=== PATIENT | male | born 1965 | race Caucasian/White ===

== ENCOUNTER 2023-12-17 14:39 | Inpatient (IN) | payer SELFPAY ==
[2023-12-17] VITALS (14 sets, daily range): BP systolic 105–148; BP diastolic 73–101; PULSE 75–100; RESP 14–24; TEMP 35.6–36.5; O2SAT 74–98; BMI 55.6; BMI 54.6
--- NOTE | 2023-12-17 15:04 | EKG12_ITS ---
Test Reason : SOB Blood Pressure : / mmHG Vent. Rate : 092 BPM Atrial Rate : 092 BPM P-R Int : 154 ms QRS Dur : 078 ms QT Int : 354 ms P-R-T Axes : 072 105 054 degrees QTc Int : 437 ms Normal sinus rhythm Right atrial enlargement Right ventricular hypertrophy Abnormal ECG Confirmed by Martin Louis ([id number]), editor managing newspaper JOCELYNE DAVIS ([id number]) on 12/19/2023 8:19:01 AM Referred By: Confirmed By:Martin Louis
--- NOTE | 2023-12-17 15:07 | NURSING ---
NO OLD EKGS
--- NOTE | 2023-12-17 15:25 | NURSING ---
PER LAB, NEEDS A NEW PURPLE TOP
[2023-12-17 15:30] LABS: Allen Test Positive; Base Excess 10 mmol/L (-2 to +2); Bicarbonate 36.6 mmol/L (22-26); Blood Gas Specimen Type ART; Mode Not entered; O2 Delivery Device Cannula; PO2 109 mmHG (75-100); SITE R Radial; SO2 97 % (95-99); Time Given 15:26:55; Total Carbon Dioxide 39 mmol/L; pCO2 81.4 mmHg (35-45); pH 7.26 (7.35-7.45)
--- NOTE | 2023-12-17 15:39 | EDS_ITS ---
HPI <URIAH Lazar - Last Filed: 12/17/23 20:36> History of Present Illness Chief Complaint: Fatigue Narrative Narrative: Patient presenting today due to fatigue and hypoxia. He is here with his who reports that she checked his pulse ox yesterday and noticed that it was in the 70s, however she did not think much of that because she does not know what is normal. She noticed yesterday that he seemed to be fatigued and slightly confused. She checked his pulse ox again today and it was in the 50s, prompting her to bring him in. Patient reports that he has noticed being slightly short of breath with exertion for a long time but did not think much of it. He reports that he does not feel short of breath at rest. He denies any fevers, chills, chest pain, cough, history of blood clots, recent surgery/procedures/travel/immobilization. He does have a history of MONIKA, hypertension, and hyperlipidemia but is not compliant with his CPAP or medication. PFSH <URIAH Lazar - Last Filed: 12/17/23 20:36> PFSH Medical History (Updated 12/17/23 @ 19:[address] Blessing Henley MD) Acute hypoxemic respiratory failure HLD (hyperlipidemia) HTN (hypertension) Morbid obesity MONIKA (obstructive sleep apnea) Home Medications losartan 100 mg-hydrochlorothiazide 25 mg tablet 1 tab PO DAILY 12/17/23 [History Last Taken Unknown] rosuvastatin 10 mg tablet (Crestor) 10 mg PO DAILY 12/17/23 [History Last Taken Unknown] Allergy/AdvReac Type Severity Reaction Status Date / Time Penicillins Allergy PT UNSURE Verified 12/17/23 14:41 OF REACTION Family History (Updated 12/17/23 @ 19:[address] Blessing Henley MD) Mother CVA (cerebral vascular accident) Hypertension Father Heart disease Hypertension Cancer Surgical History (Updated 12/17/23 @ 19:[address] Blessing Henley MD) History of vein stripping Social History (Updated 12/17/23 @ 19:[address] Blessing Henley MD) household members: spouse Smoking Status: Never smoker alcohol intake: current alcohol intake frequency: holidays/special occasions only substance use type: does not use ROS <URIAH Lazar - Last Filed: 12/17/23 20:36> ROS ED Constitutional Constitutional ED: Denies chills or fever(s) Cardiovascular Cardiovascular: Denies chest pain Respiratory/Chest Respiratory/Chest: Reports dyspnea on exertion; Denies cough, tachypnea or whee zing Gastrointestinal Gastrointestinal: Denies abdominal pain, nausea or vomiting Musculoskeletal Musculoskeletal: Denies arthralgias or myalgias Integumentary Denies rash Neurologic Neurologic: Denies weakness EXAM <URIAH Lazar - Last Filed: 12/17/23 20:36> Physical Exam Const Vital Signs: 12/17/23 14:41 12/17/23 15:09 12/17/23 15:12 Temperature 96.4 F L Temperature Source Temporal Pulse Rate 100 93 Respiratory Rate 20 H 24 H Respiratory Effort Short of Breath Respiratory Pattern Tachypnea Blood Pressure 136/91 H 113/101 H Blood Pressure Mean 106 105 Pulse Ox 74 97 Oxygen Delivery Method Room Air Nasal Cannula Oxygen Flow Rate (L/min) 4 Fraction of Inspired Oxygen (FIO2) 12/17/23 15:54 12/17/23 16:10 12/17/23 16:31 Temperature 96.6 F L Temperature Source Temporal Pulse Rate 89 86 96 Respiratory Rate 20 H 24 H 18 Respiratory Effort Respiratory Pattern Normal Blood Pressure 105/73 133/92 H Blood Pressure Mean 83 105 Pulse Ox 94 96 97 Oxygen Delivery Method Bi-pap Nasal Cannula Oxygen Flow Rate (L/min) 4 Fraction of Inspired Oxygen (FIO2) 30 12/17/23 18:16 12/17/23 18:15 12/17/23 18:51 Temperature Temperature Source Pulse Rate 78 77 78 Respiratory Rate 18 20 H 16 Respiratory Effort Respiratory Pattern Normal Blood Pressure 134/96 H 127/82 H Blood Pressure Mean 108 97 Pulse Ox 98 95 94 Oxygen Delivery Method Bi-pap Bi-pap Oxygen Flow Rate (L/min) Fraction of Inspired Oxygen (FIO2) 30 12/17/23 19:19 Temperature 97.7 F L Temperature Source Pulse Rate 79 Respiratory Rate 15 Respiratory Effort Respiratory Pattern Blood Pressure 148/95 H Blood Pressure Mean 112 Pulse Ox 95 Oxygen Delivery Method Oxygen Flow Rate (L/min) Fraction of Inspired Oxygen (FIO2) Positive well nourished, well developed and no apparent distress General Appearance ED: well developed HEENT Reports normocephalic and head/scalp atraumatic Mouth ED: Yes moist mucous membranes normal Eyes PERRL and EOMs intact bilaterally Neck full ROM and supple Chest Wall inspection of chest normal Resp clear to auscultation bilaterally Resp Narrative: Tachypneic Cardio regular rate and regular rhythm GI soft to palpation, non-tender, non-distended and no masses Back/Spine normal ROM and normal to inspection Extremity full ROM General Extremety ED: Yes edema; Negative for tenderness General Extremity: edema Neuro oriented x3, CN's II-XII intact bilaterally, moves all extremities, no focal motor deficits and no sensory deficits noted Sensorium / Orientation: awake and alert Psych mental status grossly normal and thought process normal Skin no rashes or lesions noted and no wounds <Dr. Casey Miller, DO - Last Filed: 12/17/23 19:39> Physical Exam Const Vital Signs: 12/17/23 14:41 12/17/23 15:09 12/17/23 15:12 Temperature 96.4 F L Temperature Source Temporal Pulse Rate 100 93 Respiratory Rate 20 H 24 H Respiratory Effort Short of Breath Respiratory Pattern Tachypnea Blood Pressure 136/91 H 113/101 H Blood Pressure Mean 106 105 Pulse Ox 74 97 Oxygen Delivery Method Room Air Nasal Cannula Oxygen Flow Rate (L/min) 4 Fraction of Inspired Oxygen (FIO2) 12/17/23 15:54 12/17/23 16:10 12/17/23 16:31 Temperature 96.6 F L Temperature Source Temporal Pulse Rate 89 86 96 Respiratory Rate 20 H 24 H 18 Respiratory Effort Respiratory Pattern Normal Blood Pressure 105/73 133/92 H Blood Pressure Mean 83 105 Pulse Ox 94 96 97 Oxygen Delivery Method Bi-pap Nasal Cannula Oxygen Flow Rate (L/min) 4 Fraction of Inspired Oxygen (FIO2) 30 12/17/23 18:16 12/17/23 18:15 12/17/23 18:51 Temperature Temperature Source Pulse Rate 78 77 78 Respiratory Rate 18 20 H 16 Respiratory Effort Respiratory Pattern Normal Blood Pressure 134/96 H 127/82 H Blood Pressure Mean 108 97 Pulse Ox 98 95 94 Oxygen Delivery Method Bi-pap Bi-pap Oxygen Flow Rate (L/min) Fraction of Inspired Oxygen (FIO2) 30 12/17/23 19:19 Temperature 97.7 F L Temperature Source Pulse Rate 79 Respiratory Rate 15 Respiratory Effort Respiratory Pattern Blood Pressure 148/95 H Blood Pressure Mean 112 Pulse Ox 95 Oxygen Delivery Method Oxygen Flow Rate (L/min) Fraction of Inspired Oxygen (FIO2) MDM <URIAH Lazar - Last Filed: 12/17/23 20:36> [facility] Narrative Medical decision making narrative: Patient presenting with hypoxia and fatigue. He really does not endorse feeling short of breath, he reports that he does notice that with exertion but that has been going on for a long time and he does not think much of it. On initial presentation he is 74% O2 on room air, he is tachypneic. He does seem slightly confused. Patient was placed on 4L supplemental O2. Labs will be obtained to include a ABG. Chest x-ray will be obtained to rule out pleural effusion, infiltrate, and other cardiopulmonary abnormality. ABG was obtained, patient is hypercapnic, he was placed on BiPAP. Chest x-ray shows pulmonary vascular congestion and possible infiltrates. CTA was obtained to rule out PE and shows trace pleural effusions, possible pneumonia. However, patient does not have a white count, we will hold off on antibiotics at this time. On exam, patient is fluid overloaded, he was given IV Lasix. There are concerns for diastolic heart failure. I do think he would benefit from admission to the hospital and will be admitted in stable condition. I have personally performed a face to face assessment of the patient and have reviewed the MAURA Note. I performed a substantive portion of the visit including all aspects of the following. My flores findings include: History is 58-year-old male with a history of sleep apnea and morbid obesity presented with lower extremity and scrotal/abdominal swelling. Noted to be hypoxic in the 50s in the 70s by his . He is noncompliant with his CPAP. Patient noted to have confusion over the past couple days. Exam is ANO x 3 but confused and is slow speaking. He has pitting edema of the lower extremities as well as edema of the anterior lower abdominal wall and sc rotal edema. Medical Decison Making patient has a mild respiratory acidosis with hypercarbia. He was given supplemental oxygen. No pulmonary embolism on CTA. I think changes in the bibasilar area are related more towards atelectasis than pneumonia. I suspect that he most likely has developed pulmonary hypertension due to CPAP noncompliance for sleep apnea. This most likely resulted in some di astolic heart failure. He relates some episodes of palpitations which may be due to atrial tacky dysrhythmia. He received IV Lasix and plan will be admission. We also placed him on BiPAP to help clear some of the bicarb. Hemoglobin is 18.7 probably due to chronic hypoxemia. BNP is slightly elevated. Troponin slightly elevated. Lab Data Attestation: I reviewed the patient's lab results. Labs: Laboratory Results - last 24 hr 12/17/23 12/17/23 12/17/23 15:00 15:00 15:20 WBC Cancelled Corrected WBC Cancelled RBC Cancelled Hgb Cancelled Hct Cancelled MCV Cancelled MCH Cancelled MCHC Cancelled RDW Std Deviation Cancelled RDW Coeff of Annmarie Cancelled Plt Count Cancelled MPV Cancelled Immature Gran % (Auto) Cancelled Neut % (Auto) Cancelled Lymph % (Auto) Cancelled [place] % (Auto) Cancelled Eos % (Auto) Cancelled Baso % (Auto) Cancelled Absolute Neuts (auto) Cancelled Absolute Lymphs (auto) Cancelled Total Counted Cancelled Neutrophils % (Manual) Cancelled Band Neutrophils % Cancelled Lymphocytes % (Manual) Cancelled Monocytes % (Manual) Cancelled Eosinophils % (Manual) Cancelled Basophils % (Manual) Cancelled Metamyelocytes % Cancelled Myelocytes % Cancelled Promyelocytes % Cancelled Blast Cells % Cancelled Plasma Cell % (Manual) Cancelled Other Cells % Cancelled Nucleated RBC % Cancelled Nucleated RBCs/100 WBC Cancelled Differential Comment Cancelled Diff Path Review Cancelled Hypersegmented Neuts Cancelled Atypical Lymphocytes Cancelled Reactive Lymphocytes Cancelled Smudge Cells Cancelled Toxic Granulation Cancelled Toxic Vacuolation Cancelled Dohle Bodies Cancelled Alva Rods Cancelled Platelet Estimate Cancelled Plt Morphology Comment Cancelled RBC Morphology Cancelled Cancelled Polychromasia Cancelled Hypochromasia Cancelled Basophilic Stippling Cancelled Anisocytosis Cancelled Microcytosis Cancelled Macrocytosis Cancelled Spherocytes Cancelled Sickle Cells Cancelled Target Cells Cancelled Tear Drop Cells Cancelled Ovalocytes Cancelled Stomatocytes Cancelled [place] Bodies Cancelled [place] Cells Cancelled Bite Cells Cancelled Crenated Cell Cancelled Acanthocytes (Spur) Cancelled Rouleaux Cancelled Schistocytes Cancelled PT 16.1 H INR 1.3 APTT 22.7 L Sodium 137 Potassium 5.2 H Chloride 99 Carbon Dioxide 32.0 Anion Gap 6 BUN 36 H Creatinine 1.38 H Estim Creat Clear Calc 86.96 Est GFR (MDRD) Af Amer 68 Est GFR (MDRD) Non-Af 56 L BUN/Creatinine Ratio 26.1 H Glucose 124 H Calcium 9.4 Magnesium Total Bilirubin 1.80 H Direct Bilirubin 0.54 H AST 26 ALT 27 Alkaline Phosphatase 77 Troponin I High Sens 97 H B-Natriuretic Peptide Total Protein 6.8 Albumin 3.1 L Globulin 3.7 12/17/23 12/17/23 15:33 17:30 WBC 9.2 Corrected WBC RBC 6.59 H Hgb 18.7 H* Hct 65.3 H MCV 99.1 H MCH 28.4 MCHC 28.6 L RDW Std Deviation 65.1 H RDW Coeff of Annmarie 19.5 H Plt Count 199 MPV 11.1 Immature Gran % (Auto) 0.700 Neut % (Auto) 69.3 Lymph % (Auto) 16.3 L [place] % (Auto) 12.2 H Eos % (Auto) 0.4 Baso % (Auto) 1.1 H Absolute Neuts (auto) 6.4 Absolute Lymphs (auto) 1.50 Total Counted Neutrophils % (Manual) Band Neutrophils % Lymphocytes % (Manual) Monocytes % (Manual) Eosinophils % (Manual) Basophils % (Manual) Metamyelocytes % Myelocytes % Promyelocytes % Blast Cells % Plasma Cell % (Manual) Other Cells % Nucleated RBC % 1.3 Nucleated RBCs/100 WBC Differential Comment SCANNED Diff Path Review May foll Hypersegmented Neuts Atypical Lymphocytes Reactive Lymphocytes Smudge Cells Toxic Granulation Toxic Vacuolation Dohle Bodies Alva Rods Platelet Estimate Plt Morphology Comment RBC Morphology Polychromasia RARE Hypochromasia Basophilic Stippling Anisocytosis Microcytosis Macrocytosis Spherocytes Sickle Cells Target Cells Tear Drop Cells Ovalocytes Stomatocytes [place] Bodies [place] Cells Bite Cells Crenated Cell Acanthocytes (Spur) Rouleaux Schistocytes PT INR APTT Sodium Potassium Chloride Carbon Dioxide Anion Gap BUN Creatinine Estim Creat Clear Calc Est GFR (MDRD) Af Amer Est GFR (MDRD) Non-Af BUN/Creatinine Ratio Glucose Calcium Magnesium 2.7 H Total Bilirubin Direct Bilirubin AST ALT Alkaline Phosphatase Troponin I High Sens 111 H B-Natriuretic Peptide 283.4 H Total Protein Albumin Globulin ABG Data ABG results: ABG 12/17/23 15:24 Specimen Type ART Sample Site R Radial pH 7.26 L Bicarbonate Actual 36.6 H Total CO2 39 Base Excess 10 H O2 Saturation 97 O2 % 4.0 ABG pCO2 81.4 H* ABG pO2 109 H Nick Test Positive O2 Delivery Device Cannula Vent Mode Not entered Crit Call To/Read Back Yes Blood Gas Notified Whom dr steel Blood Gas Notified Time 15:26:55 Radiography X-Ray: Read by ED Physician Diagnostic Testing: Clinical Impression(s) from Imaging Studies Chest X-Ray 12/17/23 15:43 IMPRESSION: Cardiomegaly. Bilateral hazy opacities within the mid and lower lungs may reflect edema and/or an infectious process. Pulmonary venous congestion. Electronically Signed: Shannon Foley MD at 15:59 EDT , Chest CTA 12/17/23 15:59 IMPRESSION: Normal CTA chest examination, without a demonstrated pulmonary embolism or arterial dissection. Small bibasilar consolidations with trace pleural effusions. Findings consistent with pneumonia. Electronically Signed: Nik Sol MD at 18:35 EDT , EKG Initial EKG: Comments: 92 bpm, normal sinus rhythm, right atrial enlargement, right ventricular hypertrophy, no ST elevation, reviewed and interpreted by attending ED physician <Dr. Casey Miller, DO - Last Filed: 12/17/23 19:39> [facility] MDM Narrative Medical decision making narrative: Patient presenting with hypoxia and fatigue. He really does not endorse feeling short of breath, he reports that he does notice that with exertion but that has been going on for a long time and he does not think much of it. On initial presentation he is 74% O2 on room air, he is tachypneic. Patient was placed on 4L supplemental O2. Labs will be obtained to include a ABG. Chest x-ray will be obtained to rule out pleural effusion, infiltrate, and other cardiopulmonary abnormality. ABG was obtained, patient is hypercapnic, he was placed on BiPAP. Chest x-ray shows pulmonary vascular congestion and possible infiltrates. CTA was obtained to rule out PE and shows trace pleural effusions, possible pneumonia. However, patient does not have a white count, we will hold off on antibiotics at this time. On exam, patient is fluid overloaded, he was given IV Lasix. There are concerns for diastolic heart failure. I do think he would benefit from admission to the hospital. I have personally performed a face to face assessment of the patient and have reviewed the MAURA Note. I performed a substantive portion of the visit including all aspects of the following. My flores findings include: History is 58-year-old male with a history of sleep apnea and morbid obesity pre sented with lower extremity and scrotal/abdominal swelling. Noted to be hypoxic in the 50s in the 70s by his . He is noncompliant with his CPAP. Patient noted to have confusion over the past couple days. Exam is ANO x 3 but confused and is slow speaking. He has pitting edema of the lower extremities as well as edema of the anterior lower abdominal wall and scrotal edema. Medical Decison Making patient has a mild respiratory acidosis with hypercarbia. He was given supplemental oxygen. No pulmonary embolism on CTA. I think changes in the bibasilar area are related more towards atelectasis than pneumonia. I suspect that he most likely has developed pulmonary hypertension due to CPAP noncompliance for sleep apnea. This most likely resulted in some diastolic heart failure. He relates some episodes of palpitations which may be due to atrial tacky dysrhythmia. He received IV Lasix and plan will be admission. We also placed him on BiPAP to help clear some of the bicarb. Hemoglobin is 18.7 probably due to chronic hypoxemia. BNP is slightly elevated. Troponin slightly elevated. History & Record Review Discussion w/independent historian: Patient and Family Lab Data Labs: Laboratory Results - last 24 hr 12/17/23 12/17/23 12/17/23 15:00 15:00 15:20 WBC Cancelled Corrected WBC Cancelled RBC Cancelled Hgb Cancelled Hct Cancelled MCV Cancelled MCH Cancelled MCHC Cancelled RDW Std Deviation Cancelled RDW Coeff of Annmarie Cancelled Plt Count Cancelled MPV Cancelled Immature Gran % (Auto) Cancelled Neut % (Auto) Cancelled Lymph % (Auto) Cancelled [place] % (Auto) Cancelled Eos % (Auto) Cancelled Baso % (Auto) Cancelled Absolute Neuts (auto) Cancelled Absolute Lymphs (auto) Cancelled Total Counted Cancelled Neutrophils % (Manual) Cancelled Band Neutrophils % Cancelled Lymphocytes % (Manual) Cancelled Monocytes % (Manual) Cancelled Eosinophils % (Manual) Cancelled Basophils % (Manual) Cancelled Metamyelocytes % Cancelled Myelocytes % Cancelled Promyelocytes % Cancelled Blast Cells % Cancelled Plasma Cell % (Manual) Cancelled Other Cells % Cancelled Nucleated RBC % Cancelled Nucleated RBCs/100 WBC Cancelled Differential Comment Cancelled Diff Path Review Cancelled Hypersegmented Neuts Cancelled Atypical Lymphocytes Cancelled Reactive Lymphocytes Cancelled Smudge Cells Cancelled Toxic Granulation Cancelled Toxic Vacuolation Cancelled Dohle Bodies Cancelled Alva Rods Cancelled Platelet Estimate Cancelled Plt Morphology Comment Cancelled RBC Morphology Cancelled Cancelled Polychromasia Cancelled Hypochromasia Cancelled Basophilic Stippling Cancelled Anisocytosis Cancelled Microcytosis Cancelled Macrocytosis Cancelled Spherocytes Cancelled Sickle Cells Cancelled Target Cells Cancelled Tear Drop Cells Cancelled Ovalocytes Cancelled Stomatocytes Cancelled [place] Bodies Cancelled [place] Cells Cancelled Bite Cells Cancelled Crenated Cell Cancelled Acanthocytes (Spur) Cancelled Rouleaux Cancelled Schistocytes Cancelled PT 16.1 H INR 1.3 APTT 22.7 L Sodium 137 Potassium 5.2 H Chloride 99 Carbon Dioxide 32.0 Anion Gap 6 BUN 36 H Creatinine 1.38 H Estim Creat Clear Calc 86.96 Est GFR (MDRD) Af Amer 68 Est GFR (MDRD) Non-Af 56 L BUN/Creatinine Ratio 26.1 H Glucose 124 H Calcium 9.4 Magnesium Total Bilirubin 1.80 H Direct Bilirubin 0.54 H AST 26 ALT 27 Alkaline Phosphatase 77 Troponin I High Sens 97 H B-Natriuretic Peptide Total Protein 6.8 Albumin 3.1 L Globulin 3.7 12/17/23 12/17/23 15:33 17:30 WBC 9.2 Corrected WBC RBC 6.59 H Hgb 18.7 H* Hct 65.3 H MCV 99.1 H MCH 28.4 MCHC 28.6 L RDW Std Deviation 65.1 H RDW Coeff of Annmarie 19.5 H Plt Count 199 MPV 11.1 Immature Gran % (Auto) 0.700 Neut % (Auto) 69.3 Lymph % (Auto) 16.3 L [place] % (Auto) 12.2 H Eos % (Auto) 0.4 Baso % (Auto) 1.1 H Absolute Neuts (auto) 6.4 Absolute Lymphs (auto) 1.50 Total Counted Neutrophils % (Manual) Band Neutrophils % Lymphocytes % (Manual) Monocytes % (Manual) Eosinophils % (Manual) Basophils % (Manual) Metamyelocytes % Myelocytes % Promyelocytes % Blast Cells % Plasma Cell % (Manual) Other Cells % Nucleated RBC % 1.3 Nucleated RBCs/100 WBC Differential Comment SCANNED Diff Path Review May foll Hypersegmented Neuts Atypical Lymphocytes Reactive Lymphocytes Smudge Cells Toxic Granulation Toxic Vacuolation Dohle Bodies Alva Rods Platelet Estimate Plt Morphology Comment RBC Morphology Polychromasia RARE Hypochromasia Basophilic Stippling Anisocytosis Microcytosis Macrocytosis Spherocytes Sickle Cells Target Cells Tear Drop Cells Ovalocytes Stomatocytes [place] Bodies [place] Cells Bite Cells Crenated Cell Acanthocytes (Spur) Rouleaux Schistocytes PT INR APTT Sodium Potassium Chloride Carbon Dioxide Anion Gap BUN Creatinine Estim Creat Clear Calc Est GFR (MDRD) Af Amer Est GFR (MDRD) Non-Af BUN/Creatinine Ratio Glucose Calcium Magnesium 2.7 H Total Bilirubin Direct Bilirubin AST ALT Alkaline Phosphatase Troponin I High Sens 111 H B-Natriuretic Peptide 283.4 H Total Protein Albumin Globulin ABG Data ABG results: ABG 12/17/23 15:24 Specimen Type ART Sample Site R Radial pH 7.26 L Bicarbonate Actual 36.6 H Total CO2 39 Base Excess 10 H O2 Saturation 97 O2 % 4.0 ABG pCO2 81.4 H* ABG pO2 109 H Nick Test Positive O2 Delivery Device Cannula Vent Mode Not entered Crit Call To/Read Back Yes Blood Gas Notified Whom dr steel Blood Gas Notified Time 15:26:55 Radiography Diagnostic Testing: Clinical Impression(s) from Imaging Studies Chest X-Ray 12/17/23 15:43 IMPRESSION: Cardiomegaly. Bilateral hazy opacities within the mid and lower lungs may reflect edema and/or an infectious process. Pulmonary venous congestion. Electronically Signed: Shannon Foley MD at 15:59 EDT , Chest CTA 12/17/23 15:59 IMPRESSION: Normal CTA chest examination, without a demonstrated pulmonary embolism or arterial dissection. Small bibasilar consolidations with trace pleural effusions. Findings consistent with pneumonia. Electronically Signed: Nik Sol MD at 18:35 EDT Reading Location ID and State: [address] [place] [address] Tel , Service support , Management Discussion w/another healthcare provider: Hospitalist Discharge Plan Dx/Rx/DC Orders Clinical Impression: Diastolic CHF, Acute hypoxemic respiratory failure, Elevated troponin Disposition Disposition: Acute Care Hospital [facility] Discharge Date/Time: 12/17/23 20:15
[2023-12-17 15:43] LABS: Absolute Neutrophil Count 6.4 X10^3/uL (2.0-7.7); Basophil% 1.1 % (0-1); Eosinophil# 0.04 X10^3/uL; Eosinophils% 0.4 % (0-5); Lymphocyte % 16.3 % (19-41); Mean Corp Hgb Conc 28.6 g/dL (32-36); Mean Corpuscular Hgb 28.4 pg (27.0-32.0); Mean Corpuscular Volume 99.1 fL (80-94); Mean Platelet Vol. 11.1 fl (6.2-12.0); Monocyte# 1.12 X10^3/uL; Monocyte% 12.2 % (0-10); NRBC Flagged by Analyzer 1.3 % (0-5); Neutrophil # 6.36 X10^3/uL (2.7-7.7); Neutrophil % 69.3 % (47-70); POSITIVE MORPHOLOGY YES; Platelet Count 199 K/mm3 (150-450); RBC Distribution Width CV 19.5 % (11.6-14.6); RBC Distribution Width SD 65.1 fl (35.1-43.9); Red Blood Count 6.59 M/mm3 (4.6-6.2); White Blood Count 9.2 K/mm3 (4.4-11.0)
--- NOTE | 2023-12-17 15:43 | RAD_ITS ---
INDICATION: shortness of breath EXAMINATION/TECHNIQUE: X-RAY - XR Chest 2 Views COMPARISON: No relevant prior comparison study available FINDINGS: LINES/DEVICES: None. LUNGS: There are bilateral hazy opacities within the mid and lower lungs. No pneumothorax. MEDIASTINUM AND CARDIOVASCULAR STRUCTURES: There is cardiomegaly and perihilar fullness. BONES AND SOFT TISSUES: Unremarkable. RAD/Chest PA and Lateral IMPRESSION: Cardiomegaly. Bilateral hazy opacities within the mid and lower lungs may reflect edema and/or an infectious process. Pulmonary venous congestion. Electronically Signed: Shannon Foley MD at 15:59 EDT ,
[2023-12-17 15:48] LABS: Hematocrit 65.3 % (40-54)
[2023-12-17 15:49] LABS: Anion Gap 6 (5-15); BUN 36 mg/dL (7-18); BUN/Creat Ratio 26.1 RATIO (10-20); Calcium,Total 9.4 mg/dL (8.5-10.1); Chloride 99 mmol/L (98-107); Creatinine, Serum 1.38 mg/dL (0.70-1.30); EST Glomerular Filtration Rate 56 mL/min (>60); Est Glom Filt Rate - Afr Amer 68 mL/min (>60); Estimated Creatinine Clearance 86.96 ml/min; Glucose 124 mg/dL (74-106); Potassium 5.2 mmol/L (3.5-5.1); Sodium Level 137 mmol/L (136-145); Troponin-I HS (w/2H Reflex) 97 pg/mL (3.0-78.0)
[2023-12-17 15:50] LABS: Differential Indicated SCAN CRITERIA MET; Hemoglobin 18.7 g/dL (13.0-16.5)
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
--- NOTE | 2023-12-17 15:59 | CT_ITS ---
STUDY: CTA CHEST REASON FOR EXAM: Male, 58 years old. Shortness of breath RADIATION DOSAGE (If Supplied By Facility): CTDIvol = ( 30.08 ) mGy, DLP = ( 789.72 ) mGycm TECHNIQUE: The examination was performed with the intravenous administration of 100mL Isovue-370. Post-processing of the angiographic images was performed, with multiplanar reformation and 3D reconstruction. Individualized dose optimization techniques were used for this CT. COMPARISON: None. FINDINGS: Normal enhancement of the main pulmonary artery and right and left pulmonary arteries. Normal enhancement of the bilateral peripheral pulmonary arteries. There is no demonstrated pulmonary embolism. Mild ectasia ascending thoracic aorta. There is no demonstrated aortic dissection. Normal heart and pericardium. Normal mediastinum. Normal hilar regions. Small bibasilar consolidations with trace pleural effusions. Normal chest wall structures. No acute or aggressive abnormality. Scattered ascites. Calcified gallstones. No acute findings in the upper abdomen. CT/CTA Chest W/WO Contrast IMPRESSION: Normal CTA chest examination, without a demonstrated pulmonary embolism or arterial dissection. Small bibasilar consolidations with trace pleural effusions. Findings consistent with pneumonia. Electronically Signed: Nik Sol MD at 18:35 EDT ,
[2023-12-17 16:16] LABS: AST(SGOT) 26 U/L (15-37); Alanine Aminotransfer ALT/SGPT 27 U/L (16-61); Albumin, Serum 3.1 g/dL (3.2-5.0); Alkaline Phosphatase 77 U/L (45-117); Bilirubin, Direct 0.54 mg/dL (0.00-0.30); Globulin 3.7 g/dL (2.2-4.2); Protein, Total 6.8 g/dL (6.4-8.2)
[2023-12-17 16:20] LABS: BNP,B-Type NATRIURETIC PEPTIDE 283.4 pg/mL (0-100); Differential Comment SCANNED
[2023-12-17 16:21] LABS: Polychromasia RARE
[2023-12-17 16:38] LABS: International Normalized Ratio 1.3; Partial Thromboplast Time 22.7 Seconds (24.1-36.2); Prothrombin Time (Protime)PT. 16.1 SECONDS (11.7-14.9)
--- NOTE | 2023-12-17 16:50 | CPS ---
stand by and placed on 4L NC to go to radiology
[2023-12-17 17:12] LABS: Reflex Troponin-HS? (from REC) Y
[2023-12-17 17:58] LABS: Troponin-I HS 111 pg/mL (3.0-78.0)
[2023-12-17] MEDS: Aspirin 325 MG Tablet PO (18:32)
--- NOTE | 2023-12-17 19:23 | PCM.HP.STD ---
HPI - General General Date of Admission: 12/17/23 Date of Service: 12/17/23 Chief Complaint: Fatigue, malaise, dyspnea, hypoxia. HPI Narrative The patient is a 58 y/o M w/ PMHx: Reactive airway disease, HTN, HLD, Morbid Obesity, MONIKA noncompliant with CPAP, possible CKD stage III unclear subtype who presents to the [facility] ED on 12/17/23 with history of increasing fatigue, malaise, hypoxia with pulse oximeter in the 70s with increased confusion with hypoxemia worsening to the 50s over the last 24 hours with dyspnea, worse with exertion and improves with rest with no associated chest discomfort prompting eventual ED evaluation. In the ED he is very lethargic but does arouse however is not oriented. Significant reports that he has had no significant weight gain or lower extremity swelling but does have chronic edema in his legs. Workup in the ED included 96.4, heart rate 100, BP 136/91, respiratory rate 20, initially 94% room air with improvement to 97% on 4 L however eventually required transition to BiPAP, most recent vital signs include heart rate 78, BP 137/82, respiratory rate 16, 94% on 30% FiO2 BiPAP, CBC with WBC 9.2, hemoglobin 18.7, MCV 99.1, platelet 199 without marked shift, coags with PT 16.1, INR 1.3, PTT 22.7, ABG with pH 7.26, bicarb 36.6, pCO2 81.4, pO2 109, CMP with potassium 5.2, BUN/creatinine 36/1.38, glucose 124, T. bili 1.80, D bili 0.54, AST/LT 26/27, alk phos 77, troponin initial 97 with repeat delta 111, troponin 283.4, chest x-ray with cardiomegaly, pulmonary venous congestion, bilateral hazy opacity within the mid and lower lungs likely edema versus pneumonia, follow-up CTPA with no PE or dissection, small bibasilar consolidations with trace pleural effusions consistent with pneumonia, EKG with sinus rhythm with no acute evidence of ischemia. In the ED patient ministered aspirin 325 mg p.o. x 1 as well as Lasix 60 mg IV x 1. [facility] Medical History (Updated 12/17/23 @ 19:[address] Blessing Henley MD) Acute hypoxemic respiratory failure HLD (hyperlipidemia) HTN (hypertension) Morbid obesity MONIKA (obstructive sleep apnea) Home Medications losartan 100 mg-hydrochlorothiazide 25 mg tablet 1 tab PO DAILY 12/17/23 [History Last Taken Unknown] rosuvastatin 10 mg tablet (Crestor) 10 mg PO DAILY 12/17/23 [History Last Taken Unknown] Allergy/AdvReac Type Severity Reaction Status Date / Time Penicillins Allergy PT UNSURE Verified 12/17/23 14:41 OF REACTION Family History (Updated 12/17/23 @ 19:[address] Blessing Henley MD) Mother CVA (cerebral vascular accident) Hypertension Father Heart disease Hypertension Cancer Surgical History (Updated 12/17/23 @ 19:[address] Blessing Henley MD) History of vein stripping Social History (Updated 12/17/23 @ 19:[address] Blessing Henley MD) household members: spouse Smoking Status: Never smoker alcohol intake: current alcohol intake frequency: holidays/special occasions only substance use type: does not use ROS Review of Systems ROS Unobtainable: due to encephalopathy Vital Signs Vital Signs Vital Signs: 12/17/23 14:41 12/17/23 15:09 12/17/23 15:12 Temperature 96.4 F L Temperature Source Temporal Pulse Rate 100 93 Respiratory Rate 20 H 24 H Respiratory Effort Short of Breath Respiratory Pattern Tachypnea Blood Pressure 136/91 H 113/101 H Blood Pressure Mean 106 105 Pulse Ox 74 97 Oxygen Delivery Method Room Air Nasal Cannula Oxygen Flow Rate (L/min) 4 Fraction of Inspired Oxygen (FIO2) 12/17/23 15:54 12/17/23 16:10 12/17/23 16:31 Temperature 96.6 F L Temperature Source Temporal Pulse Rate 89 86 96 Respiratory Rate 20 H 24 H 18 Respiratory Effort Respiratory Pattern Normal Blood Pressure 105/73 133/92 H Blood Pressure Mean 83 105 Pulse Ox 94 96 97 Oxygen Delivery Method Bi-pap Nasal Cannula Oxygen Flow Rate (L/min) 4 Fraction of Inspired Oxygen (FIO2) 30 12/17/23 18:16 12/17/23 18:15 12/17/23 18:51 Temperature Temperature Source Pulse Rate 78 77 78 Respiratory Rate 18 20 H 16 Respiratory Effort Respiratory Pattern Normal Blood Pressure 134/96 H 127/82 H Blood Pressure Mean 108 97 Pulse Ox 98 95 94 Oxygen Delivery Method Bi-pap Bi-pap Oxygen Flow Rate (L/min) Fraction of Inspired Oxygen (FIO2) 30 12/17/23 19:19 Temperature 97.7 F L Temperature Source Pulse Rate 79 Respiratory Rate 15 Respiratory Effort Respiratory Pattern Blood Pressure 148/95 H Blood Pressure Mean 112 Pulse Ox 95 Oxygen Delivery Method Oxygen Flow Rate (L/min) Fraction of Inspired Oxygen (FIO2) Weight Weight: 355 lb 2.635 oz Body Mass Index (BMI) 55.6 Physical Exam Narrative Physical Examination: General: Awakens to stimuli but is very lethargic, on BiPAP which is recently just placed back on secondary to imaging studies, not alert nor oriented, notably encephalopathic, seated upright in the ED bed however and vital signs stable. Skin: Normal color, normal turgor, no icterus, no cyanosis except noted intertrigo in folds as well as bilateral lower extremity chronic venous stasis skin changes. HEENT: AT/NC, EOMI, PERRLA, mildly dry MM, BiPAP in place, notable facial hair, difficult to discern carotid bruit or JVD given facial hair and BiPAP in place with referred sounds. Lungs: Significantly diminished, greater bases, BiPAP in place, currently lethargic with mildly increased respiratory rate but no evidence of distress, mild rales at bases, no rhonchi or wheezing. Heart: Regular rate and rhythm; no gallop, rub audible. Abdomen: Soft, morbidly obese, NTTP, distant normal BS, unable to discern distention or HSM well secondary to habitus. Extremities: No cyanosis, no clubbing, significant chronic bilateral lower extremity lymphedema. Neurological: Awakens to stimuli but is very lethargic, on BiPAP which is recently just placed back on secondary to imaging studies, not alert nor oriented, notably encephalopathic, seated upright in the ED bed however and vital signs stable, cognitive function not baseline intact; pupils equally reactive to light and accommodation, cranial nerves difficult to assess given encephalopathy, spontaneously moving extremities, strength severely globally decreased. Psychiatric: Affect appears flat, lethargic, no acute evidence of depressive or anxiety feelings. Results Lab / Micro Data 12/17/23 15:33 12/17/23 15:00 Labs: Laboratory Results - last 24 hr 12/17/23 15:00: WBC Cancelled, Corrected WBC Cancelled, RBC Cancelled, Hgb Cancelled, Hct Cancelled, MCV Cancelled, MCH Cancelled, MCHC Cancelled, RDW Std Deviation Cancelled, RDW Coeff of Annmarie Cancelled, Plt Count Cancelled, MPV Cancelled, Immature Gran % (Auto) Cancelled, Neut % (Auto) Cancelled, Lymph % (Auto) Cancelled, [place] % (Auto) Cancelled, Eos % (Auto) Cancelled, Baso % (Auto) Cancelled, Absolute Neuts (auto) Cancelled, Absolute Lymphs (auto) Cancelled, Total Counted Cancelled, Neutrophils % (Manual) Cancelled, Band Neutrophils % Cancelled, Lymphocytes % (Manual) Cancelled, Monocytes % (Manual) Cancelled, Eosinophils % (Manual) Cancelled, Basophils % (Manual) Cancelled, Metamyelocytes % Cancelled, Myelocytes % Cancelled, Promyelocytes % Cancelled, Blast Cells % Cancelled, Plasma Cell % (Manual) Cancelled, Other Cells % Cancelled, Nucleated RBC % Cancelled, Nucleated RBCs/100 WBC Cancelled, Differential Comment Cancelled, Diff Path Review Cancelled, Hypersegmented Neuts Cancelled, Atypical Lymphocytes Cancelled, Reactive Lymphocytes Cancelled, Smudge Cells Cancelled, Toxic Granulation Cancelled, Toxic Vacuolation Cancelled, Dohle Bodies Cancelled, Alva Rods Cancelled, Platelet Estimate Cancelled, Plt Morphology Comment Cancelled, RBC Morphology Cancelled 12/17/23 15:00: RBC Morphology Cancelled, Polychromasia Cancelled, Hypochromasia Cancelled, Basophilic Stippling Cancelled, Anisocytosis Cancelled, Microcytosis Cancelled, Macrocytosis Cancelled, Spherocytes Cancelled, Sickle Cells Cancelled, Target Cells Cancelled, Tear Drop Cells Cancelled, Ovalocytes Cancelled, Stomatocytes Cancelled, [place] Bodies Cancelled, [place] Cells Cancelled, Bite Cells Cancelled, Crenated Cell Cancelled, Acanthocytes (Spur) Cancelled, Rouleaux Cancelled, Schistocytes Cancelled, Sodium 137, Potassium 5.2 H, Chloride 99, Carbon Dioxide 32.0, Anion Gap 6, BUN 36 H, Creatinine 1.38 H, Estim Creat Clear Calc 86.96, Est GFR (MDRD) Af Amer 68, Est GFR (MDRD) Non-Af 56 L, BUN/Creatinine Ratio 26.1 H, Glucose 124 H, Calcium 9.4, Total Bilirubin 1.80 H, Direct Bilirubin 0.54 H, AST 26, ALT 27, Alkaline Phosphatase 77, Troponin I High Sens 97 H, Total Protein 6.8, Albumin 3.1 L, Globulin 3.7 12/17/23 15:20: PT 16.1 H, INR 1.3, APTT 22.7 L 12/17/23 15:33: WBC 9.2, RBC 6.59 H, Hgb 18.7 H*, Hct 65.3 H, MCV 99.1 H, MCH 28.4, MCHC 28.6 L, RDW Std Deviation 65.1 H, RDW Coeff of Annmarie 19.5 H, Plt Count 199, MPV 11.1, Immature Gran % (Auto) 0.700, Neut % (Auto) 69.3, Lymph % (Auto) 16.3 L, [place] % (Auto) 12.2 H, Eos % (Auto) 0.4, Baso % (Auto) 1.1 H, Absolute Neuts (auto) 6.4, Absolute Lymphs (auto) 1.50, Nucleated RBC % 1.3, Differential Comment SCANNED, Diff Path Review May foll, Polychromasia RARE, B-Natriuretic Peptide 283.4 H 12/17/23 17:30: Troponin I High Sens 111 H ABG Data ABG results: ABG 12/17/23 15:24 Specimen Type ART Sample Site R Radial pH 7.26 L Bicarbonate Actual 36.6 H Total CO2 39 Base Excess 10 H O2 Saturation 97 O2 % 4.0 ABG pCO2 81.4 H* ABG pO2 109 H Nick Test Positive O2 Delivery Device Cannula Vent Mode Not entered Crit Call To/Read Back Yes Blood Gas Notified Whom dr steel Blood Gas Notified Time 15:26:55 Imaging Radiology Impression Chest X-Ray 12/17/23 15:43 IMPRESSION: Cardiomegaly. Bilateral hazy opacities within the mid and lower lungs may reflect edema and/or an infectious process. Pulmonary venous congestion. Electronically Signed: Shannon Foley MD at 15:59 EDT , Chest CTA 12/17/23 15:59 IMPRESSION: Normal CTA chest examination, without a demonstrated pulmonary embolism or arterial dissection. Small bibasilar consolidations with trace pleural effusions. Findings consistent with pneumonia. Electronically Signed: Nik Sol MD at 18:35 EDT , Assessment & Plan Assessment/Plan (1) Acute hypoxic on chronic hypercapnic respiratory failure: PLAN: Plan The patient is a 58 y/o M w/ PMHx: Reactive airway disease, HTN, HLD, Morbid Obesity, MONIKA noncompliant with CPAP, possible CKD stage III unclear subtype who presents to the [facility] ED on 12/17/23 with history of increasing fatigue, malaise, hypoxia with pulse oximeter in the 70s with increased confusion with hypoxemia worsening to the 50s over the last 24 hours with dyspnea, worse with exertion and improves with rest with no associated chest discomfort prompting eventual ED evaluation. #1. Acute Encephalopathy secondary to Acute Hypoxic and Hypercarbic Respiratory Failure secondary to Suspected Decompensated HF, unclear type and Possible concurrent BL CAP with resulting likely #2 complicated by Underlying Reactive Airway Disease: Patient administered IV lasix in the ED, will admit to PCU, will continue BIPAP placement with wean to NC and then RA as able, will maintain on cardiac telemetry, obtain cardiac enzyme series, obtain serial EKGs, continue IV lasix diuresis, monitor I/Os, maintain on intake restriction, continue medical therapy w/ asa, statin, add BB, obtain TSH and magnesium level. Obtain ECHO. To be cautious we will also obtain procalcitonin, full respiratory viral panel, urine antigens and sputum culture but in the interim will maintain on IV Rocephin and azithromycin with de-escalation if primarily consistent only with overload presentation, plan repeat chest x-ray in a.m. following diuresis as well to be certain. PRN albuterol, ATC budeonside. Pending response and further evaluaiton may consider Cardiology consultation. Snug JULIET wraps. PT/OT/CM consultations for discharge planning. #2. Indeterminate cardiac enzyme, suspect demand given presentation with hypoxia as noted: EKG in ED [], CXR w/ evidence of bilateral hazy opacities as well as CTPA follow-up with bibasilar consolidation with trace pleural effusions concerning for possible overload and pneumonia, initial trop 97 with repeat delta 111. Will place on a monitored bed to assure no acute myocardial infarction with serial cardiac enzymes and EKGs. Magnesium level requested. Echocardiogram requested. Will maintain on aspirin therapy. FLP in AM. #3. Hyperkalemia, mild: Admission potassium 5.2, given planned continue diuresis will continue to trend as would expect appropriate decrease, repeat CBC in AM. #4. Suspected CKD stage III, unclear subtype but uncertain given no trends available: Admission BUN/Cr 36/1.38, baseline renal function unknown but certainly could have underlying chronic disease, repeat CMP in AM to elucidate if this is acute, acute on chronic or chronic. #5. Hyperbilirubinemia, mild: Admission T. bili 1.80, T. bili 0.54, AST and ALT 26/27, alk phos 77, potentially chronic component but no comparison, will continue treatment as noted above and repeat CMP in AM. #6. Hypertension: Continue home regimen including losartan, IV Lasix as noted, add BB, PRN hydralazine. #7. Hyperlipidemia: Continue home statin regimen. AM FLP. #8. Morbid Obesity: Weight loss and lifestyle changes encouraged. #9. MONIKA: Noncompliant with CPAP, BiPAP currently as noted. #10. DVT prophylaxis: Lovenox. #11. CODE status: Patient HCPOA and LW are not in place but his spouse would be his decision maker if he was unable. Discussed CODE status at length including difference between FULL code, DNR-CCA and DNR-CC status. Following discussions about the differences in these status, requested Full Code status. Advanced Care Planning Face to Face Time: 16 minutes. Charges/Coding Visit Charges Inpatient E&M: 22127 Init Hosp L3 Procedures Hospitalists Procedures: 37405 Advncd Care Plan 30 Min
--- OUTSIDE RECORDS SUMMARY | 2023-12-17 19:42 | XMS RPT_ITS | CCD ---
Author Name Unknown Address [address] [facility] [address] [place] [address] Organization [facility] Care Team Providers Care Bridge Tender Name Role Phone Shelli Balderas Unavailable Unavailable [...] (2 sources) Penicillins; Translations: [Penicillins] Drug Allergy [facility] Work Phone: (9 sources) Penicillins; Translations: [Penicillins] drug allergy 3 Hives [facility] 3 Repository (2 sources) chicken allergenic extract; Translations: [POULTRY] Drug Allergy 3 Anaphylaxis, Angioedema, Unknown [facility] Work Phone: (2 sources) Fish; Translations: [FISH CONTAINING PRODUCTS] Drug Allergy 3 Anaphylaxis, Angioedema [facility] (1 source) Penicillins Drug Allergy 3 Hives, Other [facility] Work Phone: Medications Current Medications Medication Drug Class(es) Dates Sig (Normalized) Sig (Original) [id number] 200 actuat albuterol 0.09 mg/actuat metered dose [...] 170.2 cm Shelli Balderas MD Work Phone: [facility] 06-19-2023 10:45-0400 Body mass index (BMI) [Ratio] 52.31 kg/m2 Shelli Balderas MD Work Phone: [facility] 06-19-2023 10:45-0400 Body weight 151.5 kg Shelli Balderas MD Work Phone: [facility] 06-19-2023 10:45-0400 Diastolic blood pressure 99 mm[Hg] Shelli Balderas MD Work Phone: [facility] 06-19-2023 10:45-0400 Heart rate 83 /min Shelli Balderas MD Work Phone: [facility] 06-19-2023 10:45-0400 Systolic blood pressure 146 mm[Hg] Shelli Balderas MD Work Phone: [facility] 09-20-2022 11:08-0500 Body mass index (BMI) [Ratio] 53.15 kg/m2 Shelli Balderas Work Phone: [facility] Work Phone: 09-20-2022 11:08-0500 Body surface area Derived from formula 2.53 m2 Shelli Balderas Work Phone: [facility] Work Phone: 09-20-2022 11:08-0500 Body weight 153.94 kg Shelli Balderas Work Phone: [facility] Work Phone: 09-20-2022 11:08-0500 Diastolic blood pressure 77 mm[Hg] Shelli Baldreas Work Phone: [facility] Work Phone: 09-20-2022 11:08-0500 Systolic blood pressure 120 mm[Hg] Shelli Balderas Work Phone: [facility] Work Phone: 11-30-2021 11:13-0500 Body height 170.18 cm Shleli Balderas Work Phone: [facility] Work Phone: 11-30-2021 11:13-0500 Body mass index (BMI) [Ratio] 54.52 kg/m2 Shelli Balderas Work Phone: [facility] Work Phone: 11-30-2021 11:13-0500 Body surface area Derived from formula 2.56 m2 Shelli Balderas Work Phone: [facility] Work Phone: 11-30-2021 11:13-0500 Body weight 157.91 kg Shelli Balderas Work Phone: [facility] Work Phone: 11-30-2021 11:13-0500 Diastolic blood pressure 88 mm[Hg] Shelli Balderas Work Phone: [facility] Work Phone: 11-30-2021 11:13-0500 Heart rate 70 /min Shelli Balderas Work Phone: [facility] Work Phone: 11-30-2021 11:13-0500 Systolic blood pressure 131 mm[Hg] Shelli Balderas Work Phone: [facility] Work Phone: 04-08-2021 09:07-0400 Body mass index (BMI) [Ratio] 52.94 kg/m2 Shelli Balderas Work Phone: [facility] Work Phone: 04-08-2021 09:07-0400 Body surface area Derived from formula 2.53 m2 Shelli Balderas Work Phone: [facility] Work Phone: 04-08-2021 09:07-0400 Body weight 153.32 kg Shelli Balderas Work Phone: [facility] Work Phone: 04-08-2021 09:07-0400 Diastolic blood pressure 90 mm[Hg] Shelli Balderas Work Phone: [facility] Work Phone: 04-08-2021 09:07-0400 Systolic blood pressure 140 mm[Hg] Shelli Balderas Work Phone: [facility] Work Phone: 10-04-2019 12:41-0500 BMI (Body Mass Index) 44.48 kg/m2 Don Monreal [facility] Work Phone: 10-04-2019 12:41-0500 Body Temperature 98.8 [degF] Don Monreal [facility] Work Phone: 10-04-2019 12:41-0500 Body weight 128.82 kg Don Monreal [facility] Work Phone: 10-04-2019 12:41-0500 BP Diastolic 90 mm[Hg] Don Monreal [facility] Work Phone: 10-04-2019 12:41-0500 BP Systolic 142 mm[Hg] Don Monreal [facility] Work Phone: 10-04-2019 12:41-0500 BSA (Body Surface Area) 2.35 m2 Don Monreal [facility] Work Phone: 10-04-2019 12:41-0500 Height 170.18 cm Don Monreal [facility] Work Phone: 02-13-2019 11:12-0400 BMI (Body Mass Index) 41.04 kg/m2 Shelli Balderas [facility] Work Phone: 02-13-2019 11:12-0400 Body Temperature 98.2 [degF] Shelli Balderas [facility] Work Phone: 02-13-2019 11:12-0400 BP Diastolic 76 mm[Hg] Shelli Balderas [facility] Work Phone: 02-13-2019 11:12-0400 BP Systolic 132 mm[Hg] Shelli Balderas [facility] Work Phone: 02-13-2019 11:12-0400 BSA (Body Surface Area) 2.27 m2 Shelli Balderas [facility] Work Phone: 02-13-2019 11:12-0400 Height 170.18 cm Shelli Balderas [facility] Work Phone: 02-13-2019 11:12-0400 Weight 118.84 kg Shelli Balderas [facility] Work Phone: Encounters Encounter Date Encounter Type Care Provider Facility Start: 06-19-2023 End: 06-20-2023 ambulatory SHELLI BALDERAS [facility] Ambulatory Start: 06-19-2023 End: 06-19-2023 Office outpatient visit 15 minutes Shelli Balderas MD Work Phone: [facility] Procedures Date Procedure Procedure Detail [...] 01-03-2030 Screening for malignant neoplasm of colon [facility] Start: 09-20-2027 Lipid panel Lipid Panel [facility] Start: 06-19-2023 End: 06-19-2024 Cologuard colon cancer screening Cologuard colon cancer screening Lab Routine Colon abnormality Expected: 06/19/2023 (Approximate), Expires: 06/19/2024 [facility] Work Phone: Payers Date Payer Category Payer Unknown [id number] Self-pay Unknown Social History Date Type Detail Facility Start: 06-19-2023 Never smoker Never smoker [facility] Work Phone: Start: 06-19-2023 Tobacco smoking status NHIS Never smoked tobacco [facility] Work Phone: Start: 06-19-2023 Tobacco use and exposure Smokeless tobacco non-user [facility] Work Phone: Start: 06-19-2023 Tobacco use panel Unive [facility] Work Phone: Start: 1965 Sex Assigned At Not on file [facility] Work Phone: NEGATED: Highlighted row - Never smoker [facility] Work Phone: Functional Status Date Assessment Result Facility NEGATED: Highlighted row Functional performance Functional status health issues are not documented Disease [facility] Work Phone: Mental Status Date Assessment Result Facility NEGATED: Highlighted row Cognitive function [Interpretation] Cognitive status health issues are not documented Disease [facility] Work Phone: History of Present illness Narrative 06-19-2023 Mickey Kowalski MA - 06/19/2023 10:15 AM EDTMattelke [...] Orders Lipid Panel documented in this encounter [facility] Work Phone: Evaluation note Note Date & Type Note Facility documented in this encounter [facility] Work Phone: Family History No Family [...] DATE CREATED AUTHOR AUTHOR'S ORGANIZ ATION 09/21/2022 [employer] DATE CREATED AUTHOR AUTHOR'S ORGANIZ ATION 06/20/2023 [facility] DATE CREATED AUTHOR AUTHOR'S ORGANIZ ATION 06/25/2023 [facility] [employer] Test Engineer Teams (unrecognized sec tion and content) FOR [...] BE BASED ON THE PRIMARY CLINICAL RECORDS. [facility] [employer] provides no warranty or guarantee of the accuracy or completeness of information in this document.
[2023-12-17] MEDS: Furosemide 100 MG/10 ML Vial 60 MG IV (19:47)
[2023-12-17 20:01] LABS: Magnesium 2.7 mg/dL (1.6-2.6)
--- NOTE | 2023-12-17 20:25 | ECHOD_ITS ---
Reason For Study: CHF Procedure This was a 2D Doppler, Color Flow transthoracic echocardiogram. Technically difficult, echo done with patient sitting upright and on BIPAP due to SOB. Exam performed portable in patient room. Left Ventricle Normal LV size. The estimated ejection fraction is 60 %. No evidence for diastolic dysfunction. No regional wall motion abnormalities noted. Right Ventricle Moderate to severely dilated with mild dysfunction. Normal systolic function. Atria Normal left atrium. Normal right atrium. No doppler evidence for ASD. Mitral Valve There is no mitral valve stenosis. No mitral valve insufficiency. Tricuspid Valve There is no tricuspid stenosis. Unable to estimate RV systolic pressure due to inadequate jet, pulmonary artery pressure probably normal. Aortic Valve Trisinus/trileaflet aortic valve. There is no aortic stenosis. No aortic valve insufficiency. Pulmonic Valve There is no pulmonic valvular stenosis. No pulmonic valve insufficiency. Great Vessels Normal aortic root. Pericardium/Pleural No pericardial effusion. MMode/2D Measurements & Calculations LVIDd: 5.1 cm IVSd: 1.3 cm Ao root diam: 3.6 cm LVIDs: 3.2 cm LVPWd: 1.2 cm LA dimension: 3.4 cm RVDd: 5.3 cm FS: 36.9 % LAV(MOD-bp): 38.1 ml LA A4 area: 17.5 cm2 RA A4 area: 22.6 cm2 LAV(MOD-bp) Indexed: 14.8 ml/m2 LAV(MOD-sp2): 31.4 ml LAV(MOD-sp4): 40.1 ml TAPSE: 2.3 cm Time Measurements MV dec time: 0.29 sec Doppler Measurements & Calculations MV E max omer: 62.3 cm/sec Lat Peak E' Omer: 6.9 cm/sec Med Peak E' Omer: 6.9 cm/sec MV A max omer: 69.5 cm/sec E/E' lat: 9.0 E/E' med: 9.1 MV E/A: 0.90 MV V2 max: 104.1 cm/sec MV P1/2t max omer: 86.7 cm/sec Ao V2 max: 121.9 cm/sec MV max P.3 mmHg MV P1/2t: 109.0 msec Ao max P.9 mmHg MV V2 mean: 54.5 cm/sec MV mean P.4 mmHg MV dec slope: 233.0 cm/sec2 MV V2 VTI: 26.8 cm MVA(P1/2t): 2.0 cm2 LV V1 max: 121.0 cm/sec PA V2 max: 73.6 cm/sec LV V1 max P.9 mmHg
[2023-12-17 21:04] LABS: Allen Test Positive; Base Excess 15 mmol/L (-2 to +2); Bicarbonate 41.6 mmol/L (22-26); Blood Gas Specimen Type ART; Mode Not entered; O2 Delivery Device Cannula; PO2 89 mmHG (75-100); SITE R Radial; SO2 94 % (95-99); Time Given 21:01:13; Total Carbon Dioxide 45 mmol/L; pCO2 92.8 mmHg (35-45); pH 7.26 (7.35-7.45)
[2023-12-17] MEDS: Ceftriaxone 1 GM/50 ML BAG IV (21:15)
[2023-12-17] MEDS: Enoxaparin 40 MG/0.4 ML Syringe SC (21:20)
[2023-12-17] MEDS: Nystatin Powder 15gm Bottle 1 APPLIC TOPICAL (21:21)
[2023-12-17] MEDS: Metoprolol Tartrate 25 MG Tablet 12.5 MG PO (21:23)
--- NOTE | 2023-12-17 21:38 | CPS ---
Pt. placed on 4L NC for transfer to [facility].
[2023-12-17] MEDS: Azithromycin 500 MG in Dextrose 5%-Water (250mL Bag) 250 ML 250 MG IV (21:46)
[2023-12-17 22:45] LABS: Troponin-I HS 90 pg/mL (3.0-78.0)
[2023-12-18] VITALS (16 sets, daily range): BP systolic 115–139; BP diastolic 69–98; PULSE 73–101; RESP 14–21; TEMP 35.9–36.5; O2SAT 91–96; BMI 54.6
[2023-12-18] MEDS: Nystatin Powder 15gm Bottle 1 APPLIC TOPICAL ×3 (04:00→21:15)
--- NOTE | 2023-12-18 05:50 | RAD_ITS ---
INDICATION: Dyspnea, cough EXAMINATION/TECHNIQUE: X-RAY - XR Chest 1 View COMPARISON: Chest x-ray from one day prior FINDINGS: LINES/DEVICES: None. LUNGS: Persistent bibasilar opacities. Right upper lung azygos lobe variant noted. No sizable pleural effusion. No pneumothorax detected. MEDIASTINUM AND CARDIOVASCULAR STRUCTURES: Stable enlarged heart shadow. Mediastinal contours unremarkable. BONES AND SOFT TISSUES: No acute findings. RAD/Chest 1 View (Portable) IMPRESSION: Cardiomegaly with bibasilar atelectasis versus infiltrate Electronically Signed: Tonny Sandoval MD at 6:39 EDT ,
--- NOTE | 2023-12-18 06:55 | CPS ---
Critical value verified times two. Reported to charge R.N. Verified by read back.
[2023-12-18 06:58] LABS: Allen Test Positive; Base Excess 14 mmol/L (-2 to +2); Bicarbonate 39.9 mmol/L (22-26); Blood Gas Specimen Type ART; Mode Not entered; O2 Delivery Device BiPAP; PO2 70 mmHG (75-100); SITE L Radial; SO2 92 % (95-99); Total Carbon Dioxide 42 mmol/L; pCO2 73.2 mmHg (35-45); pH 7.35 (7.35-7.45)
[2023-12-18] MEDS: Budesonide Respules 0.5 MG/2 ML AMPUL.NEB. INHALATION ×2 (07:33→20:51)
--- NOTE | 2023-12-18 07:34 | PCM.PN.HOSP ---
Reason for Visit Reason for Visit: Diagnoses Acute respiratory failure with hypoxia (12/17/23) Chronic respiratory failure with hypercapnia (12/17/23) Objective Data Objective Data Vital Signs: Vital Signs Temp Pulse Resp BP Pulse Ox O2 Del Method O2 Flow Rate 96.6 F L 80 17 139/98 H 96 Bi-pap 3 12/18/23 04:00 12/18/23 04:00 12/18/23 04:00 12/18/23 04:00 12/18/23 04:00 12/18/23 04:00 12/17/23 21:04 FiO2 30 12/18/23 04:00 Oxygen Flow Rate (L/min) 3 Oxygen Delivery Method Bi-pap Weight: 347 lb 14.231 oz Body Mass Index (BMI) 54.6 Intake & Output: Intake and Output for Last 24 Hours 12/16/23 12/17/23 12/18/23 22:59 23:59 23:59 Intake Total 0 / 0 Output Total 1750 / 1750 Balance -1750 / -1750 Lab / Micro Data 12/18/23 07:33 12/18/23 07:33 Labs: Laboratory Results - last 24 hr Sodium 137, Potassium 5.2 H, Chloride 99, Carbon Dioxide 32.0, Anion Gap 6, BUN 36 H, Creatinine 1.38 H, Estim Creat Clear Calc 86.96, Est GFR (MDRD) Af Amer 68, Est GFR (MDRD) Non-Af 56 L, BUN/Creatinine Ratio 26.1 H, Glucose 124 H, Calcium 9.4, Total Bilirubin 1.80 H, Direct Bilirubin 0.54 H, AST 26, ALT 27, Alkaline Phosphatase 77, Troponin I High Sens 97 H, Total Protein 6.8, Albumin 3.1 L, Globulin 3.7 12/17/23 15:20: PT 16.1 H, INR 1.3, APTT 22.7 L 12/17/23 15:33: WBC 9.2, RBC 6.59 H, Hgb 18.7 H*, Hct 65.3 H, MCV 99.1 H, MCH 28.4, MCHC 28.6 L, RDW Std Deviation 65.1 H, RDW Coeff of Annmarie 19.5 H, Plt Count 199, MPV 11.1, Immature Gran % (Auto) 0.700, Neut % (Auto) 69.3, Lymph % (Auto) 16.3 L, [place] % (Auto) 12.2 H, Eos % (Auto) 0.4, Baso % (Auto) 1.1 H, Absolute Neuts (auto) 6.4, Absolute Lymphs (auto) 1.50, Nucleated RBC % 1.3, Differential Comment SCANNED, Diff Path Review May foll, Polychromasia RARE, B-Natriuretic Peptide 283.4 H 12/17/23 17:30: Magnesium 2.7 H, Troponin I High Sens 111 H 12/17/23 22:18: Troponin I High Sens 90 H Micro: Microbiology 12/17/23 20:51 Mucosa - Nasopharyngeal Coronavirus COVID-19 PCR - Final 12/17/23 20:51 Mucosa - Nasopharyngeal Respiratory Panel (PCR) - Final 12/17/23 22:00 Urine Catheter - Catheter Legionella Antigen - Final 12/17/23 22:00 Urine Catheter - Catheter Streptococcus pneumoniae Antigen (M - Final ABG Data ABG results: ABG 12/17/23 12/17/23 12/18/23 15:24 20:59 05:55 Specimen Type ART ART ART Sample Site R Radial R Radial L Radial pH 7.26 L 7.26 L 7.35 Bicarbonate Actual 36.6 H 41.6 H 39.9 H Total CO2 39 45 42 Base Excess 10 H 15 H 14 H O2 Saturation 97 94 L 92 L O2 % 4.0 3.0 30.0 ABG pCO2 81.4 H* 92.8 H* 73.2 H* ABG pO2 109 H 89 70 L Nick Test Positive Positive Positive O2 Delivery Device Cannula Cannula BiPAP Vent Mode Not entered Not entered Not entered Crit Call To/Read Back Yes Yes Yes Blood Gas Notified Whom dr steel White Blood Gas Notified Time 15:26:55 21:01:13 Radiography Diagnostic Testing: Radiology Impression Chest X-Ray 12/17/23 15:43 IMPRESSION: Cardiomegaly. Bilateral hazy opacities within the mid and lower lungs may reflect edema and/or an infectious process. Pulmonary venous congestion. Electronically Signed: Shannon Foley MD at 15:59 EDT , Chest CTA 12/17/23 15:59 IMPRESSION: Normal CTA chest examination, without a demonstrated pulmonary embolism or arterial dissection. Small bibasilar consolidations with trace pleural effusions. Findings consistent with pneumonia. Electronically Signed: Nik Sol MD at 18:35 EDT , Chest X-Ray 12/18/23 05:50 IMPRESSION: Cardiomegaly with bibasilar atelectasis versus infiltrate Electronically Signed: Tonny Sandoval MD at 6:39 EDT , Physical Exam Narrative Seen and examined. Patient is states that he had cellulitis recurrent more than 5 years ago and had Kahlil wrap bandage but did not go away with antibiotics was diagnosed with chronic venous insufficiencies/varicose vein and had vein stripping both legs. But after that still his legs swelling did not go. Recently he had scrotal edema and started swelling reported lower abdomen. Patient does not use oxygen or any machine at home but his found hypoxic. Patient is states he has reactive airway disease. He has on and off cough, chronic with some URI but no chest pain. Patient said his father had heart failure. Denies history of heart failure coronary artery disease/ME or cardiac stents Physical exam General: Alert, Oriented x3, Cooperative, BMI 54.6 kg/m?, morbid obesity HEENT: Atraumatic, PERRLA, EOMI, Normocephalic Oral: No Gingival or Mucosal Lesions/ Ulcerations Neck: Supple, No JVD, Negative Carotid Bruits Chest wall/Lungs: On BiPAP. Air entry diminished in bilateral lung bases. Mild expiratory rhonchi. Cardiovascular: Regular rate, Regular Rhythm, Normal S1, Normal S2, No M/G/R Abdomen: Bowel Sounds Present, Soft, Non Tender, Non-Distended : Graham catheter. Small purulent/bloody discharge per urethra around catheter. No renal angle tenderness. No suprapubic tenderness. Extremities: Bilateral 4+ edema, swelling of to proximal thigh and lower abdomen and scrotum., Capillary Refill Less than 3 Seconds Skin: No rashes, No breakdown Musculoskeletal: No Tenderness to Palpation of Joints or Extremities Neurological: Cranial nerves II-XII grossly intact, DTR 2+/4. No acute focal neurological deficit. Psych/Mental Status: Flat affect. Assessment & Plan Assessment/Plan (1) Acute hypoxic on chronic hypercapnic respiratory failure: PLAN: Plan The patient is a 58 y/o M came to ED with fatigue for few months ago after respiratory infection with cough. Patient's found pulse ox in 50s on room air, 74% on room air in triage. Patient was also mildly confused. No fever or chills, cough chest pain or recent surgery or immobilization or travel. #1. Acute Encephalopathy secondary to Acute Hypoxic and Hypercarbic Respiratory Failure secondary to bilateral lung bases pneumonia with small effusion: H&H hemoconcentrated, platelet count 119. ABG 7.2 6/81/109 on 4 L of oxygen. Chest x-ray individually reviewed and shows bibasilar opacities with mid and lower lungs with cardiomegaly. Chest CTA shows no PE or arterial dissection but small bibasilar consolidation with trace pleural effusion. Patient on IV ceftriaxone and azithromycin. Patient had Lasix 60 mg IV in ED and scheduled Lasix 40 mg IV twice daily although hemoconcentration. No previous echo. 2D echo is ordered. BNP elevated but may be falsely low in morbidly obese patients. TSH normal. #2. Indeterminate cardiac enzyme,: Cardiac enzymes are flat and indeterminate range with no significant delta change. 97, 111 and 90. on aspirin therapy. Fasting profile shows triglyceride 66, LDL 45. HDL low. #3. Hyperkalemia, mild: Admission potassium 5.2, Need to monitor BMP. No hyperkalemic EKG changes. #4. Suspected CKD Stage II : Admission BUN/Cr 36/1.38, unclear baseline. No previous creatinine #5. Hyperbilirubinemia, mild: Admission T. bili 1.80, D.. bili 0.54, AST and ALT 26/27, alk phos 77 mainly indirect hyperbilirubinemia. No significant concern. #6. Hypertension: Continue home regimen including losartan. #7. Hyperlipidemia: Continue home statin regimen. ] #8. Morbid Obesity: Weight loss and lifestyle changes encouraged. #9. MONIKA: Noncompliant with CPAP, BiPAP currently as noted. #10. DVT prophylaxis: Lovenox. #11. CODE status: Patient HCPOA and LW are not in place but his spouse would be his decision maker if he was unable. Discussed CODE status at length including difference between FULL code, DNR-CCA and DNR-CC status. Following discussions about the differences in these status, requested Full Code status. Charges/Coding Visit Charges Inpatient E&M: 58433 Subs Hosp L2
[2023-12-18 07:49] LABS: Absolute Lymphocyte Count 1.11 X10^3/uL (0.83-4.51); Absolute Neutrophil Count 7.8 X10^3/uL (2.0-7.7); Eosinophil# 0.08 X10^3/uL; Eosinophils% 0.8 % (0-5); Hemoglobin 18.8 g/dL (13.0-16.5); Lymphocyte # 1.11 X10^3/ul (0.83-4.51); Lymphocyte % 10.8 % (19-41); Mean Corp Hgb Conc 29.3 g/dL (32-36); Mean Corpuscular Hgb 28.6 pg (27.0-32.0); Mean Corpuscular Volume 97.7 fL (80-94); Mean Platelet Vol. 10.8 fl (6.2-12.0); Monocyte# 1.19 X10^3/uL; Monocyte% 11.6 % (0-10); NRBC Flagged by Analyzer 0.3 % (0-5); Neutrophil # 7.77 X10^3/uL (2.7-7.7); Neutrophil % 75.3 % (47-70); Platelet Count 184 K/mm3 (150-450); RBC Distribution Width CV 19.2 % (11.6-14.6); RBC Distribution Width SD 64.4 fl (35.1-43.9); Red Blood Count 6.57 M/mm3 (4.6-6.2); White Blood Count 10.3 K/mm3 (4.4-11.0)
[2023-12-18 07:51] LABS: Hematocrit 64.2 % (40-54)
[2023-12-18 08:29] LABS: Differential Comment SCANNED
[2023-12-18 08:31] LABS: ALB/GLOB Ratio 0.8 RATIO (0.9-2.4); AST(SGOT) 22 U/L (15-37); Alanine Aminotransfer ALT/SGPT 26 U/L (16-61); Albumin, Serum 2.8 g/dL (3.2-5.0); Alkaline Phosphatase 76 U/L (45-117); Anion Gap 3 (5-15); BUN 30 mg/dL (7-18); BUN/Creat Ratio 34.1 RATIO (10-20); Calcium,Total 8.7 mg/dL (8.5-10.1); Chloride 100 mmol/L (98-107); Cholesterol 74 mg/dL (200); Creatinine, Serum 0.88 mg/dL (0.70-1.30); EST Glomerular Filtration Rate 95 mL/min (>60); Est Glom Filt Rate - Afr Amer 115 mL/min (>60); Estimated Creatinine Clearance 132.83 ml/min; Globulin 3.7 g/dL (2.2-4.2); Glucose 77 mg/dL (74-106); High Density Lipoprotein 16 mg/dL; Potassium 4.2 mmol/L (3.5-5.1); Protein, Total 6.5 g/dL (6.4-8.2); Sodium Level 141 mmol/L (136-145); Thyroid Stim Hormone (TSH) 1.05 uIU/mL (0.358-3.74); Triglycerides 66 mg/dL; Very Low Density Lipoprotein 13 mg/dL (5-40)
[2023-12-18] MEDS: Enoxaparin 40 MG/0.4 ML Syringe SC ×2 (09:07→21:14)
[2023-12-18] MEDS: Losartan Potassium 100 MG Tablet PO (09:08)
[2023-12-18] MEDS: Aspirin 81 MG TAB.CHEW PO (09:08)
[2023-12-18] MEDS: Furosemide 40 MG/4 ML Vial IV ×2 (09:08→17:28)
[2023-12-18] MEDS: Metoprolol Tartrate 25 MG Tablet 12.5 MG PO ×2 (09:08→21:14)
[2023-12-18] MEDS: Atorvastatin Calcium 20 MG Tablet 10 MG PO (09:08)
--- NOTE | 2023-12-18 09:41 | CON.PCM.CA_ITS ---
Assessment & Plan Assessment/Plan (1) Acute hypoxic on chronic hypercapnic respiratory failure: PLAN: The patient's acute on chronic respiratory failure is being evaluated by the pulmonary service. The patient does not carry a history of known LV dysfunction or heart failure. A 2D echocardiogram is pending at this time. The patient's hemoglobin is 18.8 with a bicarb of almost 40 consistent with chronic hypoventilation. I would not label this is heart failure at this point in time until we have more objective data. The BNP is minimally elevated but may be falsely depressed given the morbid obesity. The patient does have nonpitting edema of the lower extremities and scrotal edema noted. CT done shows what appears to be lower lobe pneumonia. There are trace pleural effusions but chest x-ray and CT do not show significant volume overload. (2) HLD (hyperlipidemia): QUALIFIERS: Hyperlipidemia type: pure hypercholesterolemia Qualified Code(s): E78.00 - Pure hypercholesterolemia, unspecified PLAN: The patient's lipids are well-controlled with a total cholesterol of 74 triglycerides 66 LDL 45 and HDL 16 on rosuvastatin. (3) HTN (hypertension): QUALIFIERS: Hypertension type: unspecified Qualified Code(s): I10 - Essential (primary) hypertension PLAN: Blood pressure is well-controlled on his current medical therapy in his home environment he is on losartan hydrochlorothiazide. PLAN: Plan 1. Obtain 2D echocardiogram pending the results further recommendations will be forthcoming. 2. The patient has significant diastolic dysfunction consideration may be given of adding Jardiance 10 mg daily to his medical regimen. 3. Will follow-up with further recommendations in the next 24 hours. HPI Consult Data Date of Consult: 12/18/23 HPI Narrative Reason for Consultation: Respiratory failure and LE edema HPI Narrative: MELINDA MONROE, is a 58 M who presents with a history of bilateral lower extremity edema over several years. The patient also reports he has had multiple episodes of cellulitis of his right lower extremity. The patient denies any history of cardiac events in the past he specifically denies any arrhythmias denies any palpitations denies syncope or near syncope. He does report that at times he falls asleep sitting up and can fall forward. The patient is not aware of his prior hemoglobin being elevated.. Currently it is 18.8. His white count and platelet count are normal. The patient presented with a respiratory acidosis pH of 7.26 and a pCO2 of 93. The pO2 was 89 on nasal cannula supplemental oxygen. He was subsequently placed on BiPAP his pH [place] to 7.35 his pCO2 dropped into the 70s pO2 was 70 as well. The patient's bicarb on his BMP was 39. The patient does report that his nonpitting edema has advanced from his lower e xtremities up onto his abdominal wall. He does not have a history of hypothyroidism. He reports to me he was not aware of him having hypoventilation syndrome but he does have obstructive sleep apnea and uses his sleep machine routinely. His BMI is 54. The patient denies any prior cardiac history at all. He denies any chest symptoms there is a family of undescribed heart disease, the patient is hypertensive and hyperlipidemic. He has never smoked. He has been successful in the past with weight loss getting his weight down under 300 pounds. At that time he was swimming and working with a epic trainer. He does have history of vein stripping of his lower extremities. [facility] Medical History (Updated 12/18/23 @ 10:[address] Martin Louis MD) Acute hypoxemic respiratory failure CPAP (continuous positive airway pressure) dependence HLD (hyperlipidemia) HTN (hypertension) Morbid obesity MONIKA (obstructive sleep apnea) Home Medications losartan 100 mg-hydrochlorothiazide 25 mg tablet 1 tab PO DAILY 12/17/23 [History Last Taken Unknown] rosuvastatin 10 mg tablet (Crestor) 10 mg PO DAILY 12/17/23 [History Last Taken Unknown] Allergy/AdvReac Type Severity Reaction Status Date / Time Penicillins Allergy PT UNSURE Verified 12/17/23 14:41 OF REACTION Family History Mother CVA (cerebral vascular accident) Hypertension Father Heart disease Hypertension Cancer Surgical History History of vein stripping Social History household members: spouse Smoking Status: Never smoker alcohol intake: current alcohol intake frequency: holidays/special occasions only substance use type: does not use ROS Constitutional Constitutional: Reports as per HPI Eyes Eyes: Reports systems reviewed and no addt'l complaints, except as documented ENT HEENT: Reports systems reviewed and no addt'l complaints, except as documented Cardiovascular Cardiovascular: Reports as per HPI Respiratory/Chest Respiratory/Chest: Reports as per HPI Gastrointestinal Gastrointestinal: Reports systems reviewed and no addt'l complaints, except as documented Genitourinary Genitourinary: Reports systems reviewed and no addt'l complaints, except as documented Musculoskeletal Musculoskeletal: Reports systems reviewed and no addt'l complaints, except as documented Integumentary Integumentary: Reports as per HPI Neurologic Neurologic: Reports systems reviewed and no addt'l complaints, except as documented Psychiatric Psychiatric: Reports systems reviewed and no addt'l complaints, except as documented Endocrine Endocrinology: Reports as per HPI Hematologic/Lymphatic Hematologic/Lymphatic: Reports as per HPI Allergic/Immunologic Allergic/Immunologic: Reports systems reviewed and no addt'l complaints, except as documented Physical Exam Const oriented x3 HEENT normocephalic HEENT Narrative: BiPAP in place and full qiu. Eyes EOMs intact bilaterally Neck no carotid bruits Chest inspection of chest normal Resp normal respiratory effort Auscultation: diminished lung sounds diffuse (No rales or rhonchi. He has a marked increased AP diameter and large chest.) Cardio regular rate, regular rhythm, S1 normal heart sound, S2 normal heart sound, no murmurs, no rub and no gallops Cardio Narrative: Distant heart tones. Jugular Venous Distention: Negative for JVD GI soft to palpation and no bruits Extremity General Extremity: edema bilateral lower extremity (Nonpitting edema up to his groin. There is also noted scrotal edema.) Details: moderate Skin Skin Narrative: The patient has Kahlil wrap's below the knee on both lower extremities. He reports an ecchymotic area in the area of his previous cellulitis on his right lower extremity that is covered by the Kahlil wrap's. Neuro Neuro Narrative: Alert and oriented x 3. Psych mental status grossly normal Risk Stratification Risk Stratification Applicable: No Charges/Coding Visit Charges Inpatient E&M: 36054 Init Hosp L3 Objective Data Vital Signs: Vital Signs Temp Pulse Resp BP Pulse Ox O2 Del Method O2 Flow Rate 96.9 F L 77 18 130/86 H 93 Bi-pap 3 12/18/23 08:54 12/18/23 09:08 12/18/23 08:54 12/18/23 09:08 12/18/23 08:54 12/18/23 08:54 12/17/23 21:04 FiO2 30 12/18/23 08:54 Oxygen Flow Rate (L/min) 3 Oxygen Delivery Method Bi-pap Weight: 347 lb 14.231 oz Body Mass Index (BMI) 54.6 Intake & Output: Intake and Output for Last 24 Hours 12/16/23 12/17/23 12/18/23 22:59 23:59 23:59 Intake Total 0 / 0 Output Total 1750 / 1750 Balance -1750 / -1750 Lab / Micro Data Attestation: I reviewed the patient's lab results. 12/18/23 07:33 12/18/23 07:33 Labs: Laboratory Results - last 24 hr 12/17/23 15:00: WBC Cancelled, Corrected WBC Cancelled, RBC Cancelled, Hgb Cancelled, Hct Cancelled, MCV Cancelled, MCH Cancelled, MCHC Cancelled, RDW Std Deviation Cancelled, RDW Coeff of Annmarie Cancelled, Plt Count Cancelled, MPV Cancelled, Immature Gran % (Auto) Cancelled, Neut % (Auto) Cancelled, Lymph % (A uto) Cancelled, [place] % (Auto) Cancelled, Eos % (Auto) Cancelled, Baso % (Auto) Cancelled, Absolute Neuts (auto) Cancelled, Absolute Lymphs (auto) Cancelled, Total Counted Cancelled, Neutrophils % (Manual) Cancelled, Band Neutrophils % Cancelled, Lymphocytes % (Manual) Cancelled, Monocytes % (Manual) Cancelled, Eosinophils % (Manual) Cancelled, Basophils % (Manual) Cancelled, Metamyelocytes % Cancelled, Myelocytes % Cancelled, Promyelocytes % Cancelled, Blast Cells % Cancelled, Plasma Cell % (Manual) Cancelled, Other Cells % Cancelled, Nucleated RBC % Cancelled, Nucleated RBCs/100 WBC Cancelled, Differential Comment Cancelled, Diff Path Review Cancelled, Hypersegmented Neuts Cancelled, Atypical Lymphocytes Cancelled, Reactive Lymphocytes Cancelled, Smudge Cells Cancelled, Toxic Granulation Cancelled, Toxic Vacuolation Cancelled, Dohle Bodies Cancelled, Alva Rods Cancelled, Platelet Estimate Cancelled, Plt Morphology Comment Cancelled, RBC Morphology Cancelled 12/17/23 15:00: RBC Morphology Cancelled, Polychromasia Cancelled, Hypochromasia Cancelled, Basophilic Stippling Cancelled, Anisocytosis Cancelled, Microcytosis Cancelled, Macrocytosis Cancelled, Spherocytes Cancelled, Sickle Cells Cancelled, Target Cells Cancelled, Tear Drop Cells Cancelled, Ovalocytes Cancelled, Stomatocytes Cancelled, [place] Bodies Cancelled, [place] Cells Cancelled, Bite Cells Cancelled, Crenated Cell Cancelled, Acanthocytes (Spur) Cancelled, Rouleaux Cancelled, Schistocytes Cancelled, Sodium 137, Potassium 5.2 H, Chloride 99, Carbon Dioxide 32.0, Anion Gap 6, BUN 36 H, Creatinine 1.38 H, Estim Creat Clear Calc 86.96, Est GFR (MDRD) Af Amer 68, Est GFR (MDRD) Non-Af 56 L, BUN/Creatinine Ratio 26.1 H, Glucose 124 H, Calcium 9.4, Total Bilirubin 1.80 H, Direct Bilirubin 0.54 H, AST 26, ALT 27, Alkaline Phosphatase 77, Troponin I High Sens 97 H, Total Protein 6.8, Albumin 3.1 L, Globulin 3.7 12/17/23 15:20: PT 16.1 H, INR 1.3, APTT 22.7 L 12/17/23 15:33: WBC 9.2, RBC 6.59 H, Hgb 18.7 H*, Hct 65.3 H, MCV 99.1 H, MCH 28.4, MCHC 28.6 L, RDW Std Deviation 65.1 H, RDW Coeff of Annmarie 19.5 H, Plt Count 199, MPV 11.1, Immature Gran % (Auto) 0.700, Neut % (Auto) 69.3, Lymph % (Auto) 16.3 L, [place] % (Auto) 12.2 H, Eos % (Auto) 0.4, Baso % (Auto) 1.1 H, Absolute Neuts (auto) 6.4, Absolute Lymphs (auto) 1.50, Nucleated RBC % 1.3, Differential Comment SCANNED, Diff Path Review February tania, Polychromasia RARE, B-Natriuretic Peptide 283.4 H 12/17/23 17:30: Magnesium 2.7 H, Troponin I High Sens 111 H 12/17/23 22:18: Troponin I High Sens 90 H 12/18/23 07:33: WBC 10.3, RBC 6.57 H, Hgb 18.8 H*, Hct 64.2 H, MCV 97.7 H, MCH 28.6, MCHC 29.3 L, RDW Std Deviation 64.4 H, RDW Coeff of Annmarie 19.2 H, Plt Count 184, MPV 10.8, Immature Gran % (Auto) 0.500, Neut % (Auto) 75.3 H, Lymph % (Auto) 10.8 L, [place] % (Auto) 11.6 H, Eos % (Auto) 0.8, Baso % (Auto) 1.0, Absolute Neuts (auto) 7.8 H, Absolute Lymphs (auto) 1.11, Nucleated RBC % 0.3, Differential Comment SCANNED, Diff Path Review February, Sodium 141, Potassium 4.2, Chloride 100, Carbon Dioxide 38.0 H, Anion Gap 3 L, BUN 30 H, Creatinine 0.88, Estim Creat Clear Calc 132.83, Est GFR (MDRD) Af Amer 115, Est GFR (MDRD) Non-Af 95, BUN/Creatinine Ratio 34.1 H, Glucose 77, Calcium 8.7, Total Bilirubin 2.80 H, AST 22, ALT 26, Alkaline Phosphatase 76, Total Protein 6.5, Albumin 2.8 L, Globulin 3.7, Albumin/Globulin Ratio 0.8 L, Triglycerides 66, Cholesterol 74, LDL Cholesterol 45, VLDL Cholesterol 13, HDL Cholesterol 16 L, TSH 1.05 Micro: Microbiology 12/17/23 20:51 Mucosa - Nasopharyngeal Coronavirus COVID-19 PCR - Final 12/17/23 20:51 Mucosa - Nasopharyngeal Respiratory Panel (PCR) - Final 12/17/23 22:00 Urine Catheter - Catheter Legionella Antigen - Final 12/17/23 22:00 Urine Catheter - Catheter Streptococcus pneumoniae Antigen (M - Final ABG Data ABG results: ABG 12/17/23 12/17/23 12/18/23 15:24 20:59 05:55 Specimen Type ART ART ART Sample Site R Radial R Radial L Radial pH 7.26 L 7.26 L 7.35 Bicarbonate Actual 36.6 H 41.6 H 39.9 H Total CO2 39 45 42 Base Excess 10 H 15 H 14 H O2 Saturation 97 94 L 92 L O2 % 4.0 3.0 30.0 ABG pCO2 81.4 H* 92.8 H* 73.2 H* ABG pO2 109 H 89 70 L Nick Test Positive Positive Positive O2 Delivery Device Cannula Cannula BiPAP Vent Mode Not entered Not entered Not entered Crit Call To/Read Back Yes Yes Yes Blood Gas Notified Whom dr steel White Blood Gas Notified Time 15:26:55 21:01:13 Rhythm Strip Rhythm Strip: Sinus Rhythm Rate: 75 Cardiology Labs/Tests 12/17/23 15:00: WBC Cancelled, Corrected WBC Cancelled, RBC Cancelled, Hgb Cancelled, Hct Cancelled, MCV Cancelled, MCH Cancelled, MCHC Cancelled, Plt Count Cancelled, MPV Cancelled, Immature Gran % (Auto) Cancelled, Neut % (Auto) Cancelled, Lymph % (Auto) Cancelled, [place] % (Auto) Cancelled, Eos % (Auto) Cancelled, Baso % (Auto) Cancelled, Absolute Neuts (auto) Cancelled, Total Counted Cancelled, Neutrophils % (Manual) Cancelled, Band Neutrophils % Cancelled, Lymphocytes % (Manual) Cancelled, Monocytes % (Manual) Cancelled, Eosinophils % (Manual) Cancelled, Basophils % (Manual) Cancelled, Metamyelocytes % Cancelled, Myelocytes % Cancelled, Promyelocytes % Cancelled, Blast Cells % Cancelled, Plasma Cell % (Manual) Cancelled, Other Cells % Cancelled, Nucleated RBC % Cancelled, Sodium 137, Potassium 5.2 H, Chloride 99, Carbon Dioxide 32.0, Anion Gap 6, BUN 36 H, Creatinine 1.38 H, Est GFR (MDRD) Af Amer 68, Est GFR (MDRD) Non-Af 56 L, BUN/Creatinine Ratio 26.1 H, Glucose 124 H, Calcium 9.4, Total Bilirubin 1.80 H, Direct Bilirubin 0.54 H 12/17/23 15:20: PT 16.1 H, INR 1.3, APTT 22.7 L 12/17/23 15:24: pH 7.26 L, Bicarbonate Actual 36.6 H, Base Excess 10 H, O2 Saturation 97, ABG pCO2 81.4 H*, ABG pO2 109 H, Nick Test Positive 12/17/23 15:33: WBC 9.2, RBC 6.59 H, Hgb 18.7 H*, Hct 65.3 H, MCV 99.1 H, MCH 28.4, MCHC 28.6 L, Plt Count 199, MPV 11.1, Immature Gran % (Auto) 0.700, Neut % (Auto) 69.3, Lymph % (Auto) 16.3 L, [place] % (Auto) 12.2 H, Eos % (Auto) 0.4, Baso % (Auto) 1.1 H, Absolute Neuts (auto) 6.4, Nucleated RBC % 1.3, B-Natriuretic Peptide 283.4 H 12/17/23 17:30: Magnesium 2.7 H 12/17/23 20:59: pH 7.26 L, Bicarbonate Actual 41.6 H, Base Excess 15 H, O2 Saturation 94 L, ABG pCO2 92.8 H*, ABG pO2 89, Nick Test Positive 12/18/23 05:55: pH 7.35, Bicarbonate Actual 39.9 H, Base Excess 14 H, O2 Saturation 92 L, ABG pCO2 73.2 H*, ABG pO2 70 L, Nick Test Positive 12/18/23 07:33: WBC 10.3, RBC 6.57 H, Hgb 18.8 H*, Hct 64.2 H, MCV 97.7 H, MCH 28.6, MCHC 29.3 L, Plt Count 184, MPV 10.8, Immature Gran % (Auto) 0.500, Neut % (Auto) 75.3 H, Lymph % (Auto) 10.8 L, [place] % (Auto) 11.6 H, Eos % (Auto) 0.8, Baso % (Auto) 1.0, Absolute Neuts (auto) 7.8 H, Nucleated RBC % 0.3, Sodium 141, Potassium 4.2, Chloride 100, Carbon Dioxide 38.0 H, Anion Gap 3 L, BUN 30 H, Creatinine 0.88, Est GFR (MDRD) Af Amer 115, Est GFR (MDRD) Non-Af 95, BUN/Creatinine Ratio 34.1 H, Glucose 77, Calcium 8.7, Total Bilirubin 2.80 H, Triglycerides 66, Cholesterol 74, LDL Cholesterol 45, VLDL Cholesterol 13, HDL Cholesterol 16 L Rhythm: EKG: ECHO: Stress Test: Cardiac Cath: PCI: CT Surgery: Holter monitor: EPS: PPM: CXR: Chest CT Scan: Radiography Diagnostic Testing: Radiology Impression Chest X-Ray 12/17/23 15:43 IMPRESSION: Cardiomegaly. Bilateral hazy opacities within the mid and lower lungs may reflect edema and/or an infectious process. Pulmonary venous congestion. Electronically Signed: Shannon Foley MD at 15:59 EDT , Chest CTA 12/17/23 15:59 IMPRESSION: Normal CTA chest examination, without a demonstrated pulmonary embolism or arterial dissection. Small bibasilar consolidations with trace pleural effusions. Findings consistent with pneumonia. Electronically Signed: Nik Sol MD at 18:35 EDT , Chest X-Ray 12/18/23 05:50 IMPRESSION: Cardiomegaly with bibasilar atelectasis versus infiltrate Electronically Signed: Tonny Sandoval MD at 6:39 EDT ,
--- NOTE | 2023-12-18 13:40 | CASEMGMT ---
RN CM Face to Face with patient for initial transition planning/care coordination assessment. RN CM introduced self and role at [facility]. Patient lying in bed, alert and oriented, at bedside. Patient on continuous Bipap and would like to answer questions. willing to participate in assessment and is able to answer all questions appropriately. Care providers, pharmacy, and demographics verified. PCP: Rehan Lancaster Specialists: none [facility]erred [facility]acy[facility] Insurance: none Prescription Benefit: none Living Will/HPOA: none LNOK: Living Arrangements: Patient lives with in a 2 story home. Patient is independent and able ambulate stairs. Transportation: self, DME/HHC: Patient has cpap at home that he was not wearing. No previous HHC or SNF Patient wishes to discharge home, denies need for home health at this time. Will monitor for home oxygen at discharge. Patient states he has no further needs or concerns at this time. CM to follow for discharge planning needs that may arise. Disposition Plan: Patient to discharge home with family support and follow-up plans in place. Will monitor for home oxygen. Maye MARION, RN, CM
--- NOTE | 2023-12-18 14:00 | EX.PCM.CONCC ---
Assessment & Plan Assessment/Plan (1) Acute hypoxic on chronic hypercapnic respiratory failure: (2) Heart failure: (3) Morbid obesity with BMI of 50.0-59.9, adult: PLAN: Plan RECOMMENDATIONS: 1. Continue diuresis as tolerated 2. Continue BiPAP with all sleep, possible breaks during the day 3. ABG on room air once fluid status is improved 4. Await cardiovascular recommendations 5. Outpatient complete PFT and walking oximetry IMPRESSIONS: 1. Acute metabolic encephalopathy secondary to acute on chronic combined respiratory failure Unclear inciting event. Patient does have a significantly elevated hemoglobin suggesting ongoing hypoxic compensation. Patient does have significant retention with no AA gradient suggestive of hypoventilation. Ideally, patient will have an ABG on room air, but appears to be fluid overloaded at this time. Patient is responding well to diuretic therapy. Patient is not reporting any constitutional symptoms antibiotics for now to suggest pneumonia, but empiric are appropriate. Patient does not carry a diagnosis of congestive heart failure, but this is highly suspected as BNP can be underestimated in patients with morbid obesity. Patient appears to be tolerating BiPAP at this time. Will have to reevaluate if patient starts to refuse BiPAP as he will be at high risk for decompensation and intubation. Patient has never been a smoker, so it is unlikely to have COPD. Patient would need a PFT for confirmation. Anticipate restrictive physiology. Lung volumes will be difficult to obtain given body habitus, but it does not appear to have any fibrotic changes or honeycombing on CT scan. 2. Suspected CKD stage II/hyperbilirubinemia/hypertension/hyperlipidemia/morbid obesity Complicates care, management, recovery and prognosis. Unclear if patient has an element of elevated liver enzymes secondary to polycythemia. Patient appears to be tolerating diuresis well, but will likely require electrolyte repletion as he is diuresing significantly. Okay to continue with baseline hypertensive medications. Will need to reevaluate patient's compliance with MONIKA therapy once discharged. At this point, patient is a full code. HPI Consult Data Date of Consult: 12/18/23 HPI Narrative HPI Narrative: MELINDA MONROE is a 58 M, with past medical history listed below, who presents to [facility] on 12/17/2023 secondary to fatigue and hypoxia. Patient's reportedly had checked his saturations several times and found it ranging from 50% to 70% prompting presentation to the ER. Patient reportedly had had shortness of breath for quite some time but I disregarded it. Patient not reported any fevers, chills, chest pain or recent immobilization. Patient does have a history of MONIKA, but reportedly is not compliant with noninvasive therapy. In the ER, patient was afebrile, but tachycardic at 100 bpm. Patient was noted to be 74% on room air, but did improve with 4 L nasal cannula. Patient eventually was transitioned to BiPAP therapy after ABG was obtained. Laboratory data showed normal coagulation studies with a bicarbonate of 32, creatinine of 1.38 and glucose of 124. Patient did have a mild elevation of bilirubin and white blood cell count of 9.2. Hemoglobin was elevated at 18.7 with platelets of 199. Patient's BNP was slightly elevated at 283 and troponin was 111. An ABG showed acute on chronic hypercarbic respiratory acidosis with partial metabolic compensation and a normal AA gradient. Chest x-ray showed cardiomegaly with pulmonary congestion and a CTA of the chest showed no PE, but once again for fluffy infiltrates. Patient was given Lasix, BiPAP and admitted to the floor for further evaluation. Patient was on BiPAP during my evaluation. Patient had reported subjective improvement in overall condition. Patient had not been able to take any BiPAP breaks as of my evaluation. Patient was very clear that he has had a diagnosis of sleep apnea in the past, but does not use any positive pressure at home. Patient reportedly has never been a smoker. Patient does not follow with pulmonary on a routine basis. Patient states he does not have supplemental oxygen at home. Somewhat limited secondary to BiPAP, but otherwise review of systems otherwise negative from a constitutional, HEENT, respiratory, cardiovascular, GI, genitourinary, musculoskeletal, skin, neurologic, psychiatric and hematologic system unless stated above. [facility] Medical History Acute hypoxemic respiratory failure CPAP (continuous positive airway pressure) dependence HLD (hyperlipidemia) HTN (hypertension) Morbid obesity MONIKA (obstructive sleep apnea) Home Medications losartan 100 mg-hydrochlorothiazide 25 mg tablet 1 tab PO DAILY 12/17/23 [History Last Taken Unknown] rosuvastatin 10 mg tablet (Crestor) 10 mg PO DAILY 12/17/23 [History Last Taken Unknown] Allergy/AdvReac Type Severity Reaction Status Date / Time Penicillins Allergy PT UNSURE Verified 12/17/23 14:41 OF REACTION Family History Mother CVA (cerebral vascular accident) Hypertension Father Heart disease Hypertension Cancer Surgical History History of vein stripping Social History household members: spouse Smoking Status: Never smoker alcohol intake: current alcohol intake frequency: holidays/special occasions only substance use type: does not use ROS ROS Narrative See HPI Physical Exam Const alert, oriented x3 and no apparent distress Constitutional Narrative: Conversational dyspnea secondary to BiPAP, but able to vocalize. Good BiPAP synchrony HEENT normocephalic and head/scalp atraumatic HEENT Narrative: BiPAP in place and full qiu. Eyes PERRL, EOMs intact bilaterally and conjunctivae normal Neck full ROM, no lymphadenopathy, supple and no carotid bruits Chest inspection of chest normal Resp normal respiratory effort Auscultation: diminished lung sounds; Negative for rales, rhonchi or wheezes Cardio regular rate, regular rhythm, S1 normal heart sound, S2 normal heart sound, no murmurs, no rub and no gallops GI normal to inspection, nondistended, normoactive bowel sounds and soft to palpation Extremity General Extremity: edema bilateral (Scrotal edema and bilateral pitting) Skin Skin Narrative: Difficult to examine secondary to ease bandages Neuro oriented x3, CN's II-XII intact bilaterally and moves all extremities Psych mental status grossly normal Medical Records Data Attestation: I reviewed the patient's medical records Medical records narrative: No previous PFT or echocardiogram available for review Lab / Micro Data Attestation: I reviewed the patient's lab results. Lab results narrative: Elevated hemoglobin 18.8, but no data outside of this hospitalization for comparison 12/18/23 07:33 12/18/23 07:33 Labs: Laboratory Results - last 24 hr 12/17/23 15:00: WBC Cancelled, Corrected WBC Cancelled, RBC Cancelled, Hgb Cancelled, Hct Cancelled, MCV Cancelled, MCH Cancelled, MCHC Cancelled, RDW Std Deviation Cancelled, RDW Coeff of Annmarie Cancelled, Plt Count Cancelled, MPV Cancelled, Immature Gran % (Auto) Cancelled, Neut % (Auto) Cancelled, Lymph % (Auto) Cancelled, [place] % (Auto) Cancelled, Eos % (Auto) Cancelled, Baso % (Auto) Cancelled, Absolute Neuts (auto) Cancelled, Absolute Lymphs (auto) Cancelled, Total Counted Cancelled, Neutrophils % (Manual) Cancelled, Band Neutrophils % Cancelled, Lymphocytes % (Manual) Cancelled, Monocytes % (Manual) Cancelled, Eosinophils % (Manual) Cancelled, Basophils % (Manual) Cancelled, Metamyelocytes % Cancelled, Myelocytes % Cancelled, Promyelocytes % Cancelled, Blast Cells % Cancelled, Plasma Cell % (Manual) Cancelled, Other Cells % Cancelled, Nucleated RBC % Cancelled, Nucleated RBCs/100 WBC Cancelled, Differential Comment Cancelled, Diff Path Review Cancelled, Hypersegmented Neuts Cancelled, Atypical Lymphocytes Cancelled, Reactive Lymphocytes Cancelled, Smudge Cells Cancelled, Toxic Granulation Cancelled, Toxic Vacuolation Cancelled, Dohle Bodies Cancelled, Alva Rods Cancelled, Platelet Estimate Cancelled, Plt Morphology Comment Cancelled, RBC Morphology Cancelled 12/17/23 15:00: RBC Morphology Cancelled, Polychromasia Cancelled, Hypochromasia Cancelled, Basophilic Stippling Cancelled, Anisocytosis Cancelled, Microcytosis Cancelled, Macrocytosis Cancelled, Spherocytes Cancelled, Sickle Cells Cancelled, Target Cells Cancelled, Tear Drop Cells Cancelled, Ovalocytes Cancelled, Stomatocytes Cancelled, [place] Bodies Cancelled, [place] Cells Cancelled, Bite Cells Cancelled, Crenated Cell Cancelled, Acanthocytes (Spur) Cancelled, Rouleaux Cancelled, Schistocytes Cancelled, Sodium 137, Potassium 5.2 H, Chloride 99, Carbon Dioxide 32.0, Anion Gap 6, BUN 36 H, Creatinine 1.38 H, Estim Creat Clear Calc 86.96, Est GFR (MDRD) Af Amer 68, Est GFR (MDRD) Non-Af 56 L, BUN/Creatinine Ratio 26.1 H, Glucose 124 H, Calcium 9.4, Total Bilirubin 1.80 H, Direct Bilirubin 0.54 H, AST 26, ALT 27, Alkaline Phosphatase 77, Troponin I High Sens 97 H, Total Protein 6.8, Albumin 3.1 L, Globulin 3.7 12/17/23 15:20: PT 16.1 H, INR 1.3, APTT 22.7 L 12/17/23 15:33: WBC 9.2, RBC 6.59 H, Hgb 18.7 H*, Hct 65.3 H, MCV 99.1 H, MCH 28.4, MCHC 28.6 L, RDW Std Deviation 65.1 H, RDW Coeff of Annmarie 19.5 H, Plt Count 199, MPV 11.1, Immature Gran % (Auto) 0.700, Neut % (Auto) 69.3, Lymph % (Auto) 16.3 L, [place] % (Auto) 12.2 H, Eos % (Auto) 0.4, Baso % (Auto) 1.1 H, Absolute Neuts (auto) 6.4, Absolute Lymphs (auto) 1.50, Nucleated RBC % 1.3, Differential Comment SCANNED, Diff Path Review February tania, Polychromasia RARE, B-Natriuretic Peptide 283.4 H 12/17/23 17:30: Magnesium 2.7 H, Troponin I High Sens 111 H 12/17/23 22:18: Troponin I High Sens 90 H 12/18/23 07:33: WBC 10.3, RBC 6.57 H, Hgb 18.8 H*, Hct 64.2 H, MCV 97.7 H, MCH 28.6, MCHC 29.3 L, RDW Std Deviation 64.4 H, RDW Coeff of Annmarie 19.2 H, Plt Count 184, MPV 10.8, Immature Gran % (Auto) 0.500, Neut % (Auto) 75.3 H, Lymph % (Auto) 10.8 L, [place] % (Auto) 11.6 H, Eos % (Auto) 0.8, Baso % (Auto) 1.0, Absolute Neuts (auto) 7.8 H, Absolute Lymphs (auto) 1.11, Nucleated RBC % 0.3, Differential Comment SCANNED, Diff Path Review February tania, Sodium 141, Potassium 4.2, Chloride 100, Carbon Dioxide 38.0 H, Anion Gap 3 L, BUN 30 H, Creatinine 0.88, Estim Creat Clear Calc 132.83, Est GFR (MDRD) Af Amer 115, Est GFR (MDRD) Non-Af 95, BUN/Creatinine Ratio 34.1 H, Glucose 77, Calcium 8.7, Total Bilirubin 2.80 H, AST 22, ALT 26, Alkaline Phosphatase 76, Total Protein 6.5, Albumin 2.8 L, Globulin 3.7, Albumin/Globulin Ratio 0.8 L, Triglycerides 66, Cholesterol 74, LDL Cholesterol 45, VLDL Cholesterol 13, HDL Cholesterol 16 L, TSH 1.05 Micro: Microbiology 12/17/23 20:51 Mucosa - Nasopharyngeal Coronavirus COVID-19 PCR - Final 12/17/23 20:51 Mucosa - Nasopharyngeal Respiratory Panel (PCR) - Final 12/17/23 22:00 Urine Catheter - Catheter Legionella Antigen - Final 12/17/23 22:00 Urine Catheter - Catheter Streptococcus pneumoniae Antigen (M - Final ABG Data ABG results: ABG 12/17/23 12/17/23 12/18/23 15:24 20:59 05:55 Specimen Type ART ART ART Sample Site R Radial R Radial L Radial pH 7.26 L 7.26 L 7.35 Bicarbonate Actual 36.6 H 41.6 H 39.9 H Total CO2 39 45 42 Base Excess 10 H 15 H 14 H O2 Saturation 97 94 L 92 L O2 % 4.0 3.0 30.0 ABG pCO2 81.4 H* 92.8 H* 73.2 H* ABG pO2 109 H 89 70 L Nick Test Positive Positive Positive O2 Delivery Device Cannula Cannula BiPAP Vent Mode Not entered Not entered Not entered Crit Call To/Read Back Yes Yes Yes Blood Gas Notified Whom dr steel White Blood Gas Notified Time 15:26:55 21:01:13 Attestation: I personally reviewed and interpreted this ABG as follows: (See HPI, improvement with BiPAP therapy) Rhythm Strip Rhythm Strip: Sinus Rhythm Rate: 75 Imaging Radiology Impression Chest X-Ray 12/17/23 15:43 IMPRESSION: Cardiomegaly. Bilateral hazy opacities within the mid and lower lungs may reflect edema and/or an infectious process. Pulmonary venous congestion. Electronically Signed: Shannon Foley MD at 15:59 EDT , Chest CTA 12/17/23 15:59 IMPRESSION: Normal CTA chest examination, without a demonstrated pulmonary embolism or arterial dissection. Small bibasilar consolidations with trace pleural effusions. Findings consistent with pneumonia. Electronically Signed: Nik Sol MD at 18:35 EDT , Chest X-Ray 12/18/23 05:50 IMPRESSION: Cardiomegaly with bibasilar atelectasis versus infiltrate Electronically Signed: Tonny Sandoval MD at 6:39 EDT , Charges/Coding Visit Charges Inpatient E&M: 85168 Init Hosp L3
--- NOTE | 2023-12-18 15:24 | CASEMGMT ---
ESCOBAR met with patient's Jackelyn as patient was sleeping. ESCOBAR asked about self pay status. Jackelyn said she was given a paper in the ED that stated if she pays a deposit she will get 25% off the bill. Jackelyn said she called the number and paid the deposit. Jackelyn said they have a PCP and have been able to afford medications. Jackelyn denied any further resources. Jesica Sandoval [employer] REYNOLD
[2023-12-18] MEDS: 0.9% Saline Lock 10 ML Syringe IV (17:28)
[2023-12-18] MEDS: Ceftriaxone 1 GM/50 ML BAG IV (21:10)
[2023-12-18] MEDS: Azithromycin 500 MG in Dextrose 5%-Water (250mL Bag) 250 ML 250 MG IV (21:55)
[2023-12-19] VITALS (12 sets, daily range): BP systolic 106–142; BP diastolic 60–81; PULSE 71–89; RESP 14–20; TEMP 36.5–36.7; O2SAT 93–95; BMI 53.2
[2023-12-19] MEDS: Fluticasone 0.05% 1 SPRAY NASAL.SRY NASAL ×3 (01:51→21:21)
[2023-12-19] MEDS: Nystatin Powder 15gm Bottle 1 APPLIC TOPICAL ×3 (05:48→21:22)
[2023-12-19] MEDS: Budesonide Respules 0.5 MG/2 ML AMPUL.NEB. INHALATION ×2 (07:03→20:18)
[2023-12-19 07:09] LABS: Absolute Lymphocyte Count 1.31 X10^3/uL (0.83-4.51); Absolute Neutrophil Count 5.1 X10^3/uL (2.0-7.7); Basophil# 0.05 X10^3/uL; Basophil% 0.7 % (0-1); Eosinophil# 0.09 X10^3/uL; Eosinophils% 1.2 % (0-5); Hemoglobin 18.4 g/dL (13.0-16.5); Lymphocyte # 1.31 X10^3/ul (0.83-4.51); Lymphocyte % 17.7 % (19-41); Mean Corp Hgb Conc 29.3 g/dL (32-36); Mean Corpuscular Hgb 28.2 pg (27.0-32.0); Mean Corpuscular Volume 96.5 fL (80-94); Monocyte# 0.84 X10^3/uL; Monocyte% 11.4 % (0-10); NRBC Flagged by Analyzer 0 % (0-5); Neutrophil # 5.08 X10^3/uL (2.7-7.7); Neutrophil % 68.7 % (47-70); Platelet Count 173 K/mm3 (150-450); RBC Distribution Width CV 19.1 % (11.6-14.6); RBC Distribution Width SD 62.8 fl (35.1-43.9); Red Blood Count 6.52 M/mm3 (4.6-6.2); White Blood Count 7.4 K/mm3 (4.4-11.0)
[2023-12-19 07:22] LABS: Hematocrit 62.9 % (40-54)
[2023-12-19 07:23] LABS: Differential Indicated SCAN CRITERIA MET
[2023-12-19 07:53] LABS: BUN 23 mg/dL (7-18); BUN/Creat Ratio 28.7 RATIO (10-20); Carbon Dioxide > 45.0 mmol/L (21.0-32.0); Chloride 95 mmol/L (98-107); EST Glomerular Filtration Rate 106 mL/min (>60); Est Glom Filt Rate - Afr Amer 128 mL/min (>60); Estimated Creatinine Clearance 143.87 ml/min; Glucose 75 mg/dL (74-106); Potassium 3.6 mmol/L (3.5-5.1); Sodium Level 142 mmol/L (136-145)
--- NOTE | 2023-12-19 07:56 | NURSING ---
dr. ruiz notified of co2>45 on chemistry this am.
--- NOTE | 2023-12-19 07:56 | PCM.PN.CARD ---
Subjective Subjective The patient is complaining of his BiPAP mask not fitting appropriately and causing swelling of his lower lip. The nursing staff reported overnight they had tried different mask and had respiratory therapy assist but had not been able to find a good answer for the situation. The patient's echocardiogram done yesterday shows a left ventricular ejection fraction of 60% with normal LV function and no diastolic dysfunction. His right ventricle is moderately to severely dilated with mild RV dysfunction. Both atria are normal in size there is no evidence of an ASD on this exam. There is no significant valvular heart disease documented. The patient does appear to be responding clinically to diuresis from what appears to be RV dysfunction. He has diuresed almost 5 L over the last 24 hours. No significant tricuspid regurgitation was documented in his right atrium is normal size. The right ventricular systolic pressure could not be estimated. This was a challenging echo given his body habitus. Objective Data Vital Signs: Vital Signs Temp Pulse Resp BP Pulse Ox O2 Del Method O2 Flow Rate 97.7 F L 76 16 106/60 93 Bi-pap 2 12/19/23 03:00 12/19/23 03:19 12/19/23 03:19 12/19/23 03:00 12/19/23 03:19 12/19/23 03:05 12/18/23 23:35 FiO2 30 12/19/23 03:19 Oxygen Flow Rate (L/min) 2 Oxygen Delivery Method Bi-pap Weight: 339 lb 4.662 oz Body Mass Index (BMI) 53.2 Intake & Output: Intake and Output for Last 24 Hours 12/17/23 12/18/23 12/19/23 23:59 23:59 23:59 Intake Total 955 / 955 Output Total 5950 / 5950 700 / 700 Balance -4995 / -4995 -700 / -700 Lab / Micro Data Attestation: I reviewed the patient's lab results. 12/19/23 06:35 12/19/23 06:35 Labs: Laboratory Results - last 24 hr 12/18/23 07:33: Differential Comment SCANNED, Diff Path Review February foll, Sodium 141, Potassium 4.2, Chloride 100, Carbon Dioxide 38.0 H, Anion Gap 3 L, BUN 30 H, Creatinine 0.88, Estim Creat Clear Calc 132.83, Est GFR (MDRD) Af Amer 115, Est GFR (MDRD) Non-Af 95, BUN/Creatinine Ratio 34.1 H, Glucose 77, Calcium 8.7, Total Bilirubin 2.80 H, AST 22, ALT 26, Alkaline Phosphatase 76, Total Protein 6.5, Albumin 2.8 L, Globulin 3.7, Albumin/Globulin Ratio 0.8 L, Triglycerides 66, Cholesterol 74, LDL Cholesterol 45, VLDL Cholesterol 13, HDL Cholesterol 16 L, TSH 1.05 12/19/23 06:35: WBC 7.4, RBC 6.52 H, Hgb 18.4 H*, Hct 62.9 H, MCV 96.5 H, MCH 28.2, MCHC 29.3 L, RDW Std Deviation 62.8 H, RDW Coeff of Annmarie 19.1 H, Plt Count 173, MPV 10.0, Immature Gran % (Auto) 0.300, Neut % (Auto) 68.7, Lymph % (Auto) 17.7 L, [place] % (Auto) 11.4 H, Eos % (Auto) 1.2, Baso % (Auto) 0.7, Absolute Neuts (auto) 5.1, Absolute Lymphs (auto) 1.31, Nucleated RBC % 0, Differential Comment COMMENT, Diff Path Review February, Sodium 142, Potassium 3.6, Chloride 95 L, Carbon Dioxide > 45.0 H*, Anion Gap TNP, BUN 23 H, Creatinine 0.80, Estim Creat Clear Calc 143.87, Est GFR (MDRD) Af Amer 128, Est GFR (MDRD) Non-Af 106, BUN/Creatinine Ratio 28.7 H, Glucose 75, Calcium 9.0 Rhythm Strip Rhythm Strip: Sinus Rhythm Rate: 75 Cardiology Labs/Tests 12/18/23 07:33: Sodium 141, Potassium 4.2, Chloride 100, Carbon Dioxide 38.0 H, Anion Gap 3 L, BUN 30 H, Creatinine 0.88, Est GFR (MDRD) Af Amer 115, Est GFR (MDRD) Non-Af 95, BUN/Creatinine Ratio 34.1 H, Glucose 77, Calcium 8.7, Total Bilirubin 2.80 H, Triglycerides 66, Cholesterol 74, LDL Cholesterol 45, VLDL Cholesterol 13, HDL Cholesterol 16 L 12/19/23 06:35: WBC 7.4, RBC 6.52 H, Hgb 18.4 H*, Hct 62.9 H, MCV 96.5 H, MCH 28.2, MCHC 29.3 L, Plt Count 173, MPV 10.0, Immature Gran % (Auto) 0.300, Neut % (Auto) 68.7, Lymph % (Auto) 17.7 L, [place] % (Auto) 11.4 H, Eos % (Auto) 1.2, Baso % (Auto) 0.7, Absolute Neuts (auto) 5.1, Nucleated RBC % 0, Sodium 142, Potassium 3.6, Chloride 95 L, Carbon Dioxide > 45.0 H*, Anion Gap TNP, BUN 23 H, Creatinine 0.80, Est GFR (MDRD) Af Amer 128, Est GFR (MDRD) Non-Af 106, BUN/Creatinine Ratio 28.7 H, Glucose 75, Calcium 9.0 Rhythm: EKG: ECHO: Stress Test: Cardiac Cath: PCI: CT Surgery: Holter monitor: EPS: PPM: CXR: Chest CT Scan: Radiography Diagnostic Testing: Radiology Impression Echocardiogram 12/17/23 20:25 Interpretation Summary The estimated ejection fraction is 60 %. No evidence for diastolic dysfunction. Moderate to severely dilated with mild dysfunction Ordering Physician: Blessing Henley Performed By: Evangelista Antonio RCS Physical Exam Const oriented x3 HEENT normocephalic Eyes EOMs intact bilaterally Neck no carotid bruits Chest inspection of chest normal Resp normal respiratory effort Auscultation: crackles bilateral base Cardio regular rate, regular rhythm, S1 normal heart sound, S2 normal heart sound, no murmurs, no rub and no gallops Cardio Narrative: Distant heart tones given the patient's body habitus GI non-tender Extremity General Extremity: edema bilateral lower extremity (Nonpitting edema. Noted scrotal edema.) Skin no rashes or lesions noted Neuro Neuro Narrative: Alert and oriented x 3 Psych mental status grossly normal Assessment & Plan Assessment/Plan (1) Volume overload: QUALIFIERS: Hypervolemia type: other Qualified Code(s): E87.79 - Other fluid overload PLAN: The patient's volume overloaded state appears to be multifactorial. He has right ventricular moderately severe dilated with mild RV dysfunction. However there is no definitive significant tricuspid regurgitation right ventricular systolic pressure cannot be estimated but it is suspected given his pulmonary status to be elevated. Has had hypercapnic hypoxic respiratory failure of an uncertain etiology. I do not feel that this is primarily cardiac in etiology his LV function is normal there is no evidence of diastolic dysfunction he has no significant valvular heart disease. He appears to be responding well to diuresis putting almost 5 L negative I's and O's over the last 24 hours The patient is on ARB and beta-alok therapy to assist with his right ventricular dysfunction. He would probably benefit from Jardiance 10 mg daily for both cardiac and weight loss. I do not feel that any further cardiac intervention other than that mentioned above is indicated at this time. I will defer decision on Jardiance to the primary service and we will follow along as needed. (2) Morbid obesity with BMI of 50.0-59.9, adult: PLAN: Further management and treatment per the primary service. PLAN: Plan 1. Continue with diuresis. 2. Monitor electrolytes and renal functions as is ordered. 3. Consider adding Jardiance 10 mg daily. 4. Cardiology will sign off please call if further assistance is needed. Charges/Coding Visit Charges Inpatient E&M: [id number] [facility] L3
[2023-12-19 08:01] LABS: Pathologist Review Reviewed
[2023-12-19 08:02] LABS: Pathologist Review Reviewed
--- NOTE | 2023-12-19 08:39 | PCM.PN.INT ---
Assessment & Plan Assessment/Plan (1) Acute hypoxic on chronic hypercapnic respiratory failure: (2) Heart failure: (3) Morbid obesity with BMI of 50.0-59.9, adult: PLAN: Plan RECOMMENDATIONS: 1. Slow diuresis 2. Continue BiPAP with all sleep with rescue as needed 3. ABG on room air once fluid status is improved. High likelihood for NIV requirements on discharge 4. Defer to hospitalist on initiation of Jardiance per cardiology recommendations 5. Outpatient complete PFT and walking oximetry IMPRESSIONS: 1. Acute metabolic encephalopathy secondary to acute on chronic combined respiratory failure Unclear inciting event. Patient does have a significantly elevated hemoglobin suggesting ongoing hypoxic compensation. Patient does have significant retention with no AA gradient suggestive of hypoventilation. Ideally, patient will have an ABG on room air, but appears to be fluid overloaded at this time. Patient with significant diuresis over last 24 hours. Will slow down diuresis to avoid contraction alkalosis. Clinical suspicion for RV dysfunction secondary to chronic hypoxia given polycythemia. Clinical suspicion is patient will need to be transition from CPAP to an NIV at discharge 2. Suspected CKD stage II/hyperbilirubinemia/hypertension/hyperlipidemia/morbid obesity Complicates care, management, recovery and prognosis. Unclear if patient has an element of elevated liver enzymes secondary to polycythemia. Patient appears to be tolerating diuresis well, but will likely require electrolyte repletion as he is diuresing significantly. Okay to continue with baseline hypertensive medications. At this point, patient is a full code. Subjective Subjective Patient much improved today compared to yesterday. Patient able to come off of BiPAP and is tolerating 2 L/min. Patient does report compliance with MONIKA therapy at home, but is having issues with the mask as an inpatient causing irritation of his lip against his teeth. Did speak with cardiology independently Objective Data Objective Data Vital Signs: Vital Signs Temp Pulse Resp BP Pulse Ox O2 Del Method O2 Flow Rate 36.5 C L 76 16 106/60 93 Nasal Cannula 2 12/19/23 03:00 12/19/23 03:19 12/19/23 03:19 12/19/23 03:00 12/19/23 03:19 12/19/23 08:00 12/19/23 08:00 FiO2 30 12/19/23 03:19 Oxygen Flow Rate (L/min) 2 Oxygen Delivery Method Nasal Cannula Weight: 153.9 kg Body Mass Index (BMI) 53.2 Intake & Output: Intake and Output for Last 24 Hours 12/17/23 12/18/23 12/19/23 23:59 23:59 23:59 Intake Total 955 / 955 Output Total 5950 / 5950 700 / 700 Balance -4995 / -4995 -700 / -700 Lab / Micro Data Attestation: I reviewed the patient's lab results. 12/19/23 06:35 12/19/23 06:35 Labs: Laboratory Results - last 24 hr 12/17/23 15:33: Diff Path Review Reviewed 12/18/23 07:33: Diff Path Review Reviewed 12/19/23 06:35: WBC 7.4, RBC 6.52 H, Hgb 18.4 H*, Hct 62.9 H, MCV 96.5 H, MCH 28.2, MCHC 29.3 L, RDW Std Deviation 62.8 H, RDW Coeff of Annmarie 19.1 H, Plt Count 173, MPV 10.0, Immature Gran % (Auto) 0.300, Neut % (Auto) 68.7, Lymph % (Auto) 17.7 L, Arroyo % (Auto) 11.4 H, Eos % (Auto) 1.2, Baso % (Auto) 0.7, Absolute Neuts (auto) 5.1, Absolute Lymphs (auto) 1.31, Nucleated RBC % 0, Differential Comment COMMENT, Diff Path Review May foll, Sodium 142, Potassium 3.6, Chloride 95 L, Carbon Dioxide > 45.0 H*, Anion Gap TNP, BUN 23 H, Creatinine 0.80, Estim Creat Clear Calc 143.87, Est GFR (MDRD) Af Amer 128, Est GFR (MDRD) Non-Af 106, BUN/Creatinine Ratio 28.7 H, Glucose 75, Calcium 9.0 Micro: Microbiology 12/17/23 20:51 Mucosa - Nasopharyngeal Coronavirus COVID-19 PCR - Final 12/17/23 20:51 Mucosa - Nasopharyngeal Respiratory Panel (PCR) - Final 12/17/23 22:00 Urine Catheter - Catheter Legionella Antigen - Final 12/17/23 22:00 Urine Catheter - Catheter Streptococcus pneumoniae Antigen (M - Final Radiography Diagnostic Testing: Radiology Impression Echocardiogram 12/17/23 20:25 Interpretation Summary The estimated ejection fraction is 60 %. No evidence for diastolic dysfunction. Moderate to severely dilated with mild dysfunction Ordering Physician: Blessing Henley Performed By: Evangelista Antonio RCS Rhythm Strip Rhythm Strip: Sinus Rhythm Rate: 80 Physical Exam Const alert, oriented x3 and no apparent distress Constitutional Narrative: Only mild conversational dyspnea noted HEENT normocephalic and head/scalp atraumatic HEENT Narrative: Full qiu. Eyes PERRL, EOMs intact bilaterally and conjunctivae normal Neck full ROM, no lymphadenopathy, supple and no carotid bruits Chest inspection of chest normal Resp normal respiratory effort Auscultation: diminished lung sounds; Negative for rales, rhonchi or wheezes Cardio regular rate, regular rhythm, S1 normal heart sound, S2 normal heart sound, no murmurs, no rub and no gallops GI normal to inspection, nondistended, normoactive bowel sounds and soft to palpation Extremity Extremity Narrative: Improved lower extremity edema General Extremity: edema bilateral (Scrotal edema and bilateral pitting) Skin Skin Narrative: Difficult to examine secondary to ease bandages Neuro oriented x3, CN's II-XII intact bilaterally and moves all extremities Psych mental status grossly normal Charges/Coding Visit Charges Inpatient E&M: 86244 Subs Hosp L3
[2023-12-19] MEDS: Losartan Potassium 100 MG Tablet PO (10:03)
[2023-12-19] MEDS: Atorvastatin Calcium 20 MG Tablet 10 MG PO (10:03)
[2023-12-19] MEDS: Aspirin 81 MG TAB.CHEW PO (10:03)
[2023-12-19] MEDS: Metoprolol Tartrate 25 MG Tablet 12.5 MG PO ×2 (10:03→21:26)
[2023-12-19] MEDS: Enoxaparin 40 MG/0.4 ML Syringe SC ×2 (10:09→21:22)
--- NOTE | 2023-12-19 11:41 | PN.HOSP_ITS ---
Reason for Visit Reason for Visit: Diagnoses Morbid (severe) obesity due to excess calories (12/17/23) Pure hypercholesterolemia, unspecified (12/17/23) Other fluid overload (12/17/23) Essential (primary) hypertension (12/17/23) Heart failure, unspecified (12/17/23) Acute respiratory failure with hypoxia (12/17/23) Chronic respiratory failure with hypercapnia (12/17/23) Body mass index [BMI] 50.0-59.9, adult (12/17/23) Objective Data Objective Data Vital Signs: Vital Signs Temp Pulse Resp BP Pulse Ox O2 Del Method O2 Flow Rate 97.9 F 73 20 H 125/81 H 93 Nasal Cannula 2 12/19/23 09:00 12/19/23 10:03 12/19/23 09:41 12/19/23 10:03 12/19/23 09:41 12/19/23 09:00 12/19/23 09:00 FiO2 30 12/19/23 09:41 Oxygen Flow Rate (L/min) 2 Oxygen Delivery Method Nasal Cannula Weight: 339 lb 4.662 oz Body Mass Index (BMI) 53.2 Intake & Output: Intake and Output for Last 24 Hours 12/17/23 12/18/23 12/19/23 23:59 23:59 23:59 Intake Total 955 / 955 Output Total 5950 / 5950 700 / 700 Balance -4995 / -4995 -700 / -700 Lab / Micro Data 12/19/23 06:35 12/19/23 06:35 Labs: Laboratory Results - last 24 hr 12/17/23 15:33: Diff Path Review Reviewed 12/18/23 07:33: Diff Path Review Reviewed 12/19/23 06:35: WBC 7.4, RBC 6.52 H, Hgb 18.4 H*, Hct 62.9 H, MCV 96.5 H, MCH 28 .2, MCHC 29.3 L, RDW Std Deviation 62.8 H, RDW Coeff of Annmarie 19.1 H, Plt Count 173, MPV 10.0, Immature Gran % (Auto) 0.300, Neut % (Auto) 68.7, Lymph % (Auto) 17.7 L, Sauk % (Auto) 11.4 H, Eos % (Auto) 1.2, Baso % (Auto) 0.7, Absolute Neuts (auto) 5.1, Absolute Lymphs (auto) 1.31, Nucleated RBC % 0, Differential Comment COMMENT, Diff Path Review May foll, Sodium 142, Potassium 3.6, Chloride 95 L, Carbon Dioxide > 45.0 H*, Anion Gap TNP, BUN 23 H, Creatinine 0.80, Estim Creat Clear Calc 143.87, Est GFR (MDRD) Af Amer 128, Est GFR (MDRD) Non-Af 106, BUN/Creatinine Ratio 28.7 H, Glucose 75, Calcium 9.0 Micro: Microbiology 12/17/23 20:51 Mucosa - Nasopharyngeal Coronavirus COVID-19 PCR - Final 12/17/23 20:51 Mucosa - Nasopharyngeal Respiratory Panel (PCR) - Final 12/17/23 22:00 Urine Catheter - Catheter Legionella Antigen - Final 12/17/23 22:00 Urine Catheter - Catheter Streptococcus pneumoniae Antigen (M - Final Radiography Diagnostic Testing: Radiology Impression Echocardiogram 12/17/23 20:25 Interpretation Summary The estimated ejection fraction is 60 %. No evidence for diastolic dysfunction. Moderate to severely dilated with mild dysfunction Ordering Physician: Blessing Henley Performed By: Evangelista Antonio RCS Rhythm Strip Rhythm Strip: Sinus Rhythm Rate: 80 Physical Exam Narrative Seen and examined. Patient shortness of breath is improved. Leg swelling is improved. Patient was diuresed 6 to 7 L. Bicarb increased more than 45. Lasix dose was decreased. No fever. Physical exam General: Alert, Oriented x3, Cooperative, BMI 54.6 kg/m?, morbid obesity HEENT: Atraumatic, PERRLA, EOMI, Normocephalic Oral: No Gingival or Mucosal Lesions/ Ulcerations Neck: Supple, No JVD, Negative Carotid Bruits Chest wall/Lungs: On BiPAP. Air entry diminished in bilateral lung bases. Mild expiratory rhonchi in lung bases. Cardiovascular: Regular rate, Regular Rhythm, Normal S1, Normal S2, No M/G/R Abdomen: Bowel Sounds Present, Soft, Non Tender, Non-Distended : Graham catheter, removal. No renal angle tenderness. No suprapubic tenderness. Extremities: Bilateral 2+ edema, swelling of to proximal thigh and lower abdomen and scrotum., Capillary Refill Less than 3 Seconds Skin: No rashes, No breakdown Musculoskeletal: No Tenderness to Palpation of Joints or Extremities Neurological: Cranial nerves II-XII grossly intact, DTR 2+/4. No acute focal neurological deficit. Psych/Mental Status: Flat affect. Assessment & Plan Assessment/Plan (1) Acute hypoxic on chronic hypercapnic respiratory failure: PLAN: Plan The patient is a 58 y/o M came to ED with fatigue for few months ago after respiratory infection with cough. No chest pain. Patient's found pulse ox in 50s on room air, 74% on room air in triage. Patient was also mildly confused. No fever or chills, cough chest pain or recent surgery or immobilization or travel. Patient is states that he had cellulitis recurrent more than 5 years ago and had Kahlil wrap bandage but did not go away with antibiotics was diagnosed with chronic venous insufficiencies/varicose vein and had vein stripping both legs. But even after that still his legs swelling did not go. Recently he had scrotal edema and started swelling reported lower abdomen. Patient does not use oxygen or any machine at home but his found hypoxic. Patient is states he has reactive airway disease. Patient said his father had heart failure. Denies history of heart failure coronary artery disease/MO or cardiac stents #1. Acute Encephalopathy secondary to Acute Hypoxic and Hypercarbic Respiratory Failure secondary to bilateral lung bases pneumonia with small effusion: H&H hemoconcentrated, platelet count 119. ABG 7.2 6/81/109 on 4 L of oxygen. Chest x-ray individually reviewed and shows bibasilar opacities with mid and lower lungs with cardiomegaly. Chest CTA shows no PE or arterial dissection but small bibasilar consolidation with trace pleural effusion. Patient on IV ceftriaxone and azithromycin. Patient had Lasix 60 mg IV in ED and scheduled Lasix 40 mg IV twice daily although hemoconcentration. No previous echo. 2D echo is ordered. BNP elevated but may be falsely low in morbidly obese patients. TSH normal. 3/12: Acute encephalopathy secondary to metabolic encephalopathy: Has resolved. #2. Indeterminate cardiac enzyme,: Cardiac enzymes are flat and indeterminate range with no significant delta change. 97, 111 and 90. on aspirin therapy. Fasting profile shows triglyceride 66, LDL 45. HDL low. 3/: Acute on chronic right-sided heart failure most likely due to obesity hypoventilation syndrome/MONIKA: 2D echo done which shows EF 60% with no evidence of diastolic dysfunction. Moderate to severely dilated RV with mild dysfunction suggestive of right-sided heart failure. [employer] recommended ABG on room air when patient is well diuresed but not now. Diuresis slowed down to furosemide 40 mg daily to avoid contraction alkalosis. Bicarb is more than 45. RV Dexacen possibly due to hypoxemia given polycythemia. Patiently transition from CPAP to NIV possible Trelegy at discharge. Diesel Engine Tester recommended Jardiance 10 mg daily but patient had mild urethral discharge purulent after Graham catheter. Therefore most likely will start Jardiance at time of discharge. #3. Hyperkalemia, mild: Admission potassium 5.2, Need to monitor BMP. No hyperkalemic EKG changes. #4. Suspected CKD Stage II : Admission BUN/Cr 36/1.38, unclear baseline. No previous creatinine 12/18: BUNs/creatinine 23/0.8. Contraction alkalosis, bicarb more than 45. #5. Hyperbilirubinemia, mild: Admission T. bili 1.80, D.. bili 0.54, AST and ALT 26/27, alk phos 77 mainly indirect hyperbilirubinemia. No significant concern. #6. Hypertension: Continue home regimen including losartan. #7. Hyperlipidemia: Continue home statin regimen. ] #8. Morbid Obesity: Weight loss and lifestyle changes encouraged. #9. MONIKA: Noncompliant with CPAP, BiPAP currently as noted. #10. DVT prophylaxis: Lovenox. #11. CODE status: Patient HCPOA and LW are not in place but his spouse would be his decision maker if he was unable. Discussed CODE status at length including difference between FULL code, DNR-CCA and DNR-CC status. Following discussions about the differences in these status, requested Full Code status. Charges/Coding Visit Charges Inpatient E&M: 11598 Subs Hosp L2
[2023-12-19] MEDS: Furosemide 40 MG/4 ML Vial IV (14:30)
--- NOTE | 2023-12-19 15:36 | CASEMGMT ---
RN CM updated by hospitalist that patient will need NIV at discharge. Patient is selfpay. RN CM reached out to [facility] regarding cost and financial assistance. Reduced payment application received and provided to patient's to complete. CM will continue to follow this patient and assist with discharge needs.
[2023-12-19] MEDS: 0.9% Saline Lock 10 ML Syringe IV (21:22)
[2023-12-19] MEDS: Ceftriaxone 1 GM/50 ML BAG IV (21:36)
[2023-12-19] MEDS: Azithromycin 500 MG in Dextrose 5%-Water (250mL Bag) 250 ML 250 MG IV (22:33)
[2023-12-20] VITALS (10 sets, daily range): BP systolic 122–151; BP diastolic 80–95; PULSE 70–88; RESP 14–20; TEMP 36.4–36.7; O2SAT 91–95; BMI 52.6
[2023-12-20] MEDS: Budesonide Respules 0.5 MG/2 ML AMPUL.NEB. INHALATION ×2 (06:53→19:39)
[2023-12-20 07:34] LABS: Absolute Lymphocyte Count 1.25 X10^3/uL (0.83-4.51); Absolute Neutrophil Count 3.6 X10^3/uL (2.0-7.7); Basophil# 0.03 X10^3/uL; Basophil% 0.5 % (0-1); Eosinophil# 0.11 X10^3/uL; Eosinophils% 1.9 % (0-5); Hemoglobin 18.3 g/dL (13.0-16.5); Lymphocyte # 1.25 X10^3/ul (0.83-4.51); Lymphocyte % 21.9 % (19-41); Mean Corpuscular Hgb 28.1 pg (27.0-32.0); Mean Corpuscular Volume 96.8 fL (80-94); Mean Platelet Vol. 10.2 fl (6.2-12.0); Monocyte% 12.2 % (0-10); NRBC Flagged by Analyzer 0 % (0-5); Neutrophil # 3.62 X10^3/uL (2.7-7.7); Neutrophil % 63.3 % (47-70); Platelet Count 169 K/mm3 (150-450); RBC Distribution Width CV 18.9 % (11.6-14.6); Red Blood Count 6.51 M/mm3 (4.6-6.2); White Blood Count 5.7 K/mm3 (4.4-11.0)
[2023-12-20 08:19] LABS: Anion Gap 1 (5-15); BUN 22 mg/dL (7-18); Calcium,Total 9.1 mg/dL (8.5-10.1); Chloride 99 mmol/L (98-107); Creatinine, Serum 0.67 mg/dL (0.70-1.30); EST Glomerular Filtration Rate 131 mL/min (>60); Est Glom Filt Rate - Afr Amer 158 mL/min (>60); Estimated Creatinine Clearance 170.47 ml/min; Glucose 78 mg/dL (74-106); Potassium 3.7 mmol/L (3.5-5.1); Sodium Level 141 mmol/L (136-145)
--- NOTE | 2023-12-20 08:26 | PN.CC_ITS ---
Assessment & Plan Assessment/Plan (1) Acute hypoxic on chronic hypercapnic respiratory failure: (2) Heart failure: (3) Morbid obesity with BMI of 50.0-59.9, adult: PLAN: Plan RECOMMENDATIONS: 1. Continue current diuresis 2. Continue BiPAP with all sleep with rescue as needed 3. ABG on room air once fluid status is improved. High likelihood for NIV requirements on discharge 4. Defer to hospitalist on initiation of Jardiance per cardiology recommendations 5. Outpatient complete PFT and walking oximetry IMPRESSIONS: 1. Acute metabolic encephalopathy secondary to acute on chronic combined respiratory failure Unclear inciting event. Clinical suspicion is patient has had fluid retention for several weeks. Patient does have a significantly elevated hemoglobin suggesting ongoing hypoxic compensation. Patient does have significant retention with no AA gradient suggestive of hypoventilation. Ideally, patient will have an ABG on room air, but appears to be fluid overloaded at this time. Patient appears to have a more appropriate diuresis at this time. Clinical suspicion for RV dysfunction secondary to chronic hypoxia given polycythemia. Clinical suspicion is patient will need to be transition from CPAP to an NIV at discharge 2. Suspected CKD stage II/hyperbilirubinemia/hypertensio n/hyperlipidemia/morbid obesity Complicates care, management, recovery and prognosis. Unclear if patient has an element of elevated liver enzymes secondary to polycythemia. Patient kevin ears to be tolerating diuresis well, but will likely require electrolyte repletion as he is diuresing significantly. Okay to continue with baseline hypertensive medications. At this point, patient is a full code. Subjective Subjective Patient did well overnight. Patient subjectively feels improved compared to previous. Patient's oxygen demands continue to improve. Patient was able to get out of bed yesterday, but is still requiring supplemental oxygen. Objective Data Objective Data Vital Signs: Vital Signs Temp Pulse Resp BP Pulse Ox O2 Del Method O2 Flow Rate 36.7 C 88 16 134/81 H 91 Bi-pap 2 12/20/23 02:17 12/20/23 06:53 12/20/23 06:53 12/20/23 02:17 12/20/23 04:40 12/20/23 02:52 12/20/23 02:17 FiO2 30 12/20/23 02:52 Oxygen Flow Rate (L/min) 2 Oxygen Delivery Method Bi-pap Weight: 152 kg Body Mass Index (BMI) 52.6 Intake & Output: Intake and Output for Last 24 Hours 12/18/23 12/19/23 12/20/23 23:59 23:59 23:59 Intake Total 955 / 955 941 / 941 Output Total 5950 / 5950 2275 / 2275 800 / 800 Balance -4995 / -4995 -1334 / -1334 -800 / -800 Lab / Micro Data Attestation: I reviewed the patient's lab results. 12/20/23 07:05 12/20/23 07:05 Labs: Laboratory Results - last 24 hr 12/20/23 07:05: WBC 5.7, RBC 6.51 H, Hgb 18.3 H*, Hct 63.0 H, MCV 96.8 H, MCH 28.1, MCHC 29.0 L, RDW Std Deviation 63.0 H, RDW Coeff of Annmarie 18.9 H, Plt Count 169, MPV 10.2, Immature Gran % (Auto) 0.200, Neut % (Auto) 63.3, Lymph % (Auto) 21.9, Wolfe % (Auto) 12.2 H, Eos % (Auto) 1.9, Baso % (Auto) 0.5, Absolute Neuts (auto) 3.6, Absolute Lymphs (auto) 1.25, Nucleated RBC % 0, Diff Path Review February, Sodium 141, Potassium 3.7, Chloride 99, Carbon Dioxide 41.0 H, Anion Gap 1 L, BUN 22 H, Creatinine 0.67 L, Estim Creat Clear Calc 170.47, Est GFR (MDRD) Af Amer 158, Est GFR (MDRD) Non-Af 131, BUN/Creatinine Ratio 33.0 H, Glucose 78, Calcium 9.1 Micro: Microbiology 12/17/23 20:51 Mucosa - Nasopharyngeal Coronavirus COVID-19 PCR - Final 12/17/23 20:51 Mucosa - Nasopharyngeal Respiratory Panel (PCR) - Final 12/17/23 22:00 Urine Catheter - Catheter Legionella Antigen - Final 12/17/23 22:00 Urine Catheter - Catheter Streptococcus pneumoniae Antigen (M - Final Rhythm Strip Rhythm Strip: Sinus Rhythm Rate: 70 Physical Exam Const alert, oriented x3 and no apparent distress Constitutional Narrative: Only mild conversational dyspnea noted. Patient on BiPAP during my evaluation HEENT normocephalic and head/scalp atraumatic Eyes PERRL, EOMs intact bilaterally and conjunctivae normal Neck full ROM, no lymphadenopathy, supple and no carotid bruits Chest inspection of chest normal Resp normal respiratory effort Auscultation: diminished lung sounds; Negative for rales, rhonchi or wheezes Cardio regular rate, regular rhythm, S1 normal heart sound, S2 normal heart sound, no murmurs, no rub and no gallops GI normal to inspection, nondistended, normoactive bowel sounds and soft to palpati on Extremity Extremity Narrative: Improved lower extremity edema General Extremity: edema bilateral (Scrotal edema and bilateral pitting) Skin Skin Narrative: Difficult to examine secondary to ease bandages Neuro oriented x3, CN's II-XII intact bilaterally and moves all extremities Psych mental status grossly normal Charges/Coding Visit Charges Inpatient E&M: 46092 Subs Hosp L2
[2023-12-20] MEDS: Fluticasone 0.05% 1 SPRAY NASAL.SRY NASAL ×2 (09:57→21:52)
[2023-12-20] MEDS: Metoprolol Tartrate 25 MG Tablet 12.5 MG PO ×2 (09:58→21:56)
[2023-12-20] MEDS: Furosemide 40 MG/4 ML Vial IV (09:58)
[2023-12-20] MEDS: Aspirin 81 MG TAB.CHEW PO (09:59)
[2023-12-20] MEDS: Enoxaparin 40 MG/0.4 ML Syringe SC ×2 (09:59→21:56)
[2023-12-20] MEDS: 0.9% Saline Lock 10 ML Syringe IV (09:59)
[2023-12-20] MEDS: Atorvastatin Calcium 20 MG Tablet 10 MG PO (09:59)
[2023-12-20] MEDS: Losartan Potassium 100 MG Tablet PO (09:59)
--- NOTE | 2023-12-20 10:55 | CON.PCM.RE_ITS ---
Assessment & Plan Assessment/Plan (1) Metabolic alkalosis: PLAN: At baseline he has chronic respiratory acidosis. No previous labs avail able for comparison. Last blood gas with a pH of 7.35, pCO2 75 bicarbonate: No prior blood gas available for comparison. Chronic respiratory acidosis is likely related to chronic obesity hypoventilation likely. Serum bicarbonate was more than 45. Down to 41 today. Repeat blood gas. Will give a dose of Diamox. Continue IV Lasix. Discussed with hospitalist HPI Consult Data Date of Consult: 12/20/23 HPI Narrative Reason for Consultation: Metabolic alkalosis HPI Narrative: MELINDA MONROE, is a 58 M who presents to the hospital with weakness, sleepiness, altered mental status. Nephrology on consultation in view of m etabolic alkalosis apparently he has known history of sleep apnea requiring CPAP. He says he has been compliant. Noted to have worsening lower extremity edema, scrotal edema for the last 1 to 2 weeks prior to admission. He says his baseline weight is around 335 pounds, he thinks he might have gained about 15 pounds. Denies any obstructive symptoms. Ongoing events include hypercapnic respiratory failure with blood gas showing significantly elevated pCO2, currently on BiPAP. Volume overload, echocardiogram showed predominantly right- sided heart failure. Polycythemia, presumably due to chronic hypoxia. His creatinine on admission was 1.3 but now is back to baseline. [facility] Medical History Acute hypoxemic respiratory failure CPAP (continuous positive airway pressure) dependence HLD (hyperlipidemia) HTN (hypertension) Morbid obesity MONIKA (obstructive sleep apnea) Home Medications losartan 100 mg-hydrochlorothiazide 25 mg tablet 1 tab PO DAILY 12/17/23 [History Last Taken Unknown] rosuvastatin 10 mg tablet (Crestor) 10 mg PO DAILY 12/17/23 [History Last Taken Unknown] Allergy/AdvReac Type Severity Reaction Status Date / Time Penicillins Allergy PT UNSURE Verified 12/17/23 14:41 OF REACTION Family History Mother CVA (cerebral vascular accident) Hypertension Father Heart disease Hypertension Cancer Surgical History History of vein stripping Social History household members: spouse Smoking Status: Never smoker alcohol intake: current alcohol intake frequency: holidays/special occasions only substance use type: does not use ROS ROS Narrative Negative except above Physical Exam Narrative Alert awake oriented x 3 no obvious distress no pallor no icterus no JVD s1s2 no murmurs lungs clear abdomen soft no organomegaly ++ edema no cyanosis Lab / Micro Data 12/20/23 07:05 12/20/23 07:05 Labs: Laboratory Results - last 24 hr 12/20/23 07:05: WBC 5.7, RBC 6.51 H, Hgb 18.3 H*, Hct 63.0 H, MCV 96.8 H, MCH 28.1, MCHC 29.0 L, RDW Std Deviation 63.0 H, RDW Coeff of Annmarie 18.9 H, Plt Count 169, MPV 10.2, Immature Gran % (Auto) 0.200, Neut % (Auto) 63.3, Lymph % (Auto) 21.9, Josephine % (Auto) 12.2 H, Eos % (Auto) 1.9, Baso % (Auto) 0.5, Absolute Neuts (auto) 3.6, Absolute Lymphs (auto) 1.25, Nucleated RBC % 0, Diff Path Review February, Sodium 141, Potassium 3.7, Chloride 99, Carbon Dioxide 41.0 H, Anion Gap 1 L, BUN 22 H, Creatinine 0.67 L, Estim Creat Clear Calc 170.47, Est GFR (MDRD) Af Amer 158, Est GFR (MDRD) Non-Af 131, BUN/Creatinine Ratio 33.0 H, Glucose 78, Calcium 9.1 Rhythm Strip Rhythm Strip: Sinus Rhythm Rate: 70
--- NOTE | 2023-12-20 14:52 | PN.HOSP_ITS ---
Reason for Visit Reason for Visit: Diagnoses Morbid (severe) obesity due to excess calories (12/17/23) Pure hypercholesterolemia, unspecified (12/17/23) Alkalosis (12/17/23) Other fluid overload (12/17/23) Essential (primary) hypertension (12/17/23) Heart failure, unspecified (12/17/23) Acute respiratory failure with hypoxia (12/17/23) Chronic respiratory failure with hypercapnia (12/17/23) Body mass index [BMI] 50.0-59.9, adult (12/17/23) Objective Data Objective Data Vital Signs: Vital Signs Temp Pulse Resp BP Pulse Ox O2 Del Method O2 Flow Rate 98.1 F 81 18 124/86 H 94 Nasal Cannula 2.5 12/20/23 09:05 12/20/23 09:58 12/20/23 09:05 12/20/23 09:05 12/20/23 09:05 12/20/23 09:05 12/20/23 09:05 FiO2 30 12/20/23 02:52 Oxygen Flow Rate (L/min) 2.5 Oxygen Delivery Method Nasal Cannula Weight: 335 lb 1.642 oz Body Mass Index (BMI) 52.6 Intake & Output: Intake and Output for Last 24 Hours 12/18/23 12/19/23 12/20/23 23:59 23:59 23:59 Intake Total 955 / 955 941 / 941 500 / 500 Output Total 5950 / 5950 2275 / 2275 800 / 800 Balance -4995 / -4995 -1334 / -1334 -300 / -300 Lab / Micro Data 12/20/23 07:05 12/20/23 07:05 Labs: Laboratory Results - last 24 hr 12/20/23 07:05: WBC 5.7, RBC 6.51 H, Hgb 18.3 H*, Hct 63.0 H, MCV 96.8 H, MCH 28.1, MCHC 29.0 L, RDW Std Deviation 63.0 H, RDW Coeff of Annmarie 18.9 H, Plt Count 169, MPV 10.2, Immature Gran % (Auto) 0.200, Neut % (Auto) 63.3, Lymph % (Auto) 21.9, Toole % (Auto) 12.2 H, Eos % (Auto) 1.9, Baso % (Auto) 0.5, Absolute Neuts (auto) 3.6, Absolute Lymphs (auto) 1.25, Nucleated RBC % 0, Diff Path Review May foll, Sodium 141, Potassium 3.7, Chloride 99, Carbon Dioxide 41.0 H, Anion Gap 1 L, B UN 22 H, Creatinine 0.67 L, Estim Creat Clear Calc 170.47, Est GFR (MDRD) Af Amer 158, Est GFR (MDRD) Non-Af 131, BUN/Creatinine Ratio 33.0 H, Glucose 78, Calcium 9.1 Micro: Microbiology 12/17/23 20:51 Mucosa - Nasopharyngeal Coronavirus COVID-19 PCR - Final 12/17/23 20:51 Mucosa - Nasopharyngeal Respiratory Panel (PCR) - Final 12/17/23 22:00 Urine Catheter - Catheter Legionella Antigen - Final 12/17/23 22:00 Urine Catheter - Catheter Streptococcus pneumoniae Antigen (M - Final Rhythm Strip Rhythm Strip: Sinus Rhythm Rate: 70 Physical Exam Narrative Seen and examined. Patient shortness of breath is better sitting upright on 2 L of oxygen. Leg swelling is improved. No fever. Physical exam General: Alert, Oriented x3, Cooperative, BMI 54.6 kg/m?, morbid obesity HEENT: Atraumatic, PERRLA, EOMI, Normocephalic Oral: Oral mucosa dry. No Gingival or Mucosal Lesions/ Ulcerations Neck: Supple, No JVD, Negative Carotid Bruits Chest wall/Lungs: On BiPAP at night. Air entry diminished in bilateral lung bases. Lung better, mild expiratory rhonchi but improved Cardiovascular: Regular rate, Regular Rhythm, Normal S1, Normal S2, No M/G/R Abdomen: Bowel Sounds Present, Soft, Non Tender, Non-Distended : Graham catheter, removal. No renal angle tenderness. No suprapubic tenderness. Extremities: Bilateral 2+ edema, swelling of to proximal thigh and lower abdomen and scrotum., Capillary Refill Less than 3 Seconds Skin: No rashes, No breakdown Musculoskeletal: No Tenderness to Palpation of Joints or Extremities Neurological: Cranial nerves II-XII grossly intact, DTR 2+/4. No acute focal neurological deficit. Psych/Mental Status: Flat affect. Assessment & Plan Assessment/Plan (1) Acute hypoxic on chronic hypercapnic respiratory failure: PLAN: Plan The patient is a 58 y/o M came to ED with fatigue for few months ago after respiratory infection with cough. No chest pain. Patient's found pulse ox in 50s on room air, 74% on room air in triage. Patient was also mildly confused. No fever or chills, cough chest pain or recent surgery or immobilization or travel. Patient is states that he had cellulitis recurrent more than 5 years ago and had Kahlil wrap bandage but did not go away with antibiotics was diagnosed with chronic venous insufficiencies/varicose vein and had vein stripping both legs. But even after that still his legs swelling did not go. Recently he had scrotal edema and started swelling reported lower abdomen. Patient does not use oxygen or any machine at home but his found hypoxic. Patient is states he has reactive airway disease. Patient said his father had heart failure. Denies history of heart failure coronary artery disease/MD or cardiac stents #1. Acute Encephalopathy secondary to Acute Hypoxic and Hypercarbic Respiratory Failure secondary to bilateral lung bases pneumonia with small effusion: H&H hemoconcentrated, platelet count 119. ABG 7.2 6//109 on 4 L of oxygen. Chest x-ray individually reviewed and shows bibasilar opacities with mid and lower lungs with cardiomegaly. Chest CTA shows no PE or arterial dissection but small bibasilar consolidation with trace pleural effusion. Patient on IV ceftriaxone and azithromycin. Patient had Lasix 60 mg IV in ED and scheduled Lasix 40 mg IV twice daily although hemoconcentration. No previous echo. 2D echo is ordered. BNP elevated but may be falsely low in morbidly obese patients. TSH normal. 12/18: Acute encephalopathy secondary to metabolic encephalopathy: Has resolved. 01/06: Plan for ABG on room air tomorrow AM as recommended by systems planner. #2. Indeterminate cardiac enzyme,: Cardiac enzymes are flat and indeterminate range with no significant delta change. 97, 111 and 90. on aspirin therapy. Fasting profile shows triglyceride 66, LDL 45. HDL low. 12/18: Acute on chronic right-sided heart failure most likely due to obesity hypoventilation syndrome/MONIKA: 2D echo done which shows EF 60% with no evidence of diastolic dysfunction. Moderate to severely dilated RV with mild dysfunction suggestive of right-sided heart failure. Farm Service Consultant recommended ABG on room air when patient is well diuresed but not now. Diuresis slowed down to furosemide 40 mg daily to avoid contraction alkalosis. Bicarb is more than 45. RV Dexacen possibly due to hypoxemia given polycythemia. Patiently transition from CPAP to NIV possible Trelegy at discharge. Brick Chimney Supervisor recommended Jardiance 10 mg daily but patient had mild urethral discharge purulent after Graham catheter. Therefore most likely will start Jardiance at time of discharge. 12/19: Start Jardiance from tomorrow 10 mg daily.Patient on IV antibiotics. Watch for groin infection/yeast infection #3. Hyperkalemia, mild: Admission potassium 5.2, Need to monitor BMP. No hyperkalemic EKG changes. 12/19: Hypokalemia corrected. Bicarb better. Metabolic alkalosis with chronic respiratory acidosis. Repeat blood gas ordered today. Lining Cementer consult reviewed and appreciated. 1 dose of Diamox. Continue IV Lasix. #4. Suspected CKD Stage II : Admission BUN/Cr 36/1.38, unclear baseline. No previous creatinine 12/18: BUNs/creatinine 23/0.8. Contraction alkalosis, bicarb more than 45. #5. Hyperbilirubinemia, mild: Admission T. bili 1.80, D.. bili 0.54, AST and ALT 26/27, alk phos 77 mainly indirect hyperbilirubinemia. No significant concern. #6. Hypertension: Continue home regimen including losartan. #7. Hyperlipidemia: Continue home statin regimen. ] #8. Morbid Obesity: Weight loss and lifestyle changes encouraged. #9. MONIKA: Noncompliant with CPAP, BiPAP currently as noted. #10. DVT prophylaxis: Lovenox. #11. CODE status: Patient HCPOA and LW are not in place but his spouse would be his decision maker if he was unable. Discussed CODE status at length including difference between FULL code, DNR-CCA and DNR-CC status. Following discussions about the differences in these status, requested Full Code status. Charges/Coding Visit Charges Inpatient E&M: 51028 Subs Hosp L2
--- NOTE | 2023-12-20 16:00 | CASEMGMT ---
TAMIKO LEMUS note: RN MARIAH to room. Discussed DME companies and pt made aware [employer] is affiliated /[facility] and made aware of other DME companies that also provide NIV. Pt states to use [employer] and states his have completed the Reduced payment application which she left in his room for TAMIKO LEMUS. Copy made of application and original given back to pt. Jayashree, principal planner property management assistant, to send to [employer]. TAMIKO LEMUS will f/u with [employer] tomorrow once cost of NIV is determined. Davon MARION RN CM
--- NOTE | 2023-12-20 16:00 | CASEMGMT ---
TAMIKO LEMUS note: TAMIKO LEMUS to room. Discussed DME companies and pt made aware [employer] is affiliated /[facility] and made aware of other DME companies that also provide NIV. Pt states to use [employer] and states he and his have completed the Reduced payment application received and provided to patient's to complete.
[2023-12-20] MEDS: Potassium Chloride Oral Tablet 20 MEQ PO (16:04)
[2023-12-20] MEDS: Ceftriaxone 1 GM/50 ML BAG IV (21:48)
[2023-12-20] MEDS: AcetaZOLAMIDE 250 MG Tablet PO (21:52)
[2023-12-20] MEDS: Azithromycin 500 MG in Dextrose 5%-Water (250mL Bag) 250 ML 250 MG IV (22:22)
[2023-12-21] VITALS (8 sets, daily range): BP systolic 121–127; BP diastolic 75–85; PULSE 71–82; RESP 14–18; TEMP 36.4–36.9; O2SAT 91–95; BMI 52.4
[2023-12-21] MEDS: Budesonide Respules 0.5 MG/2 ML AMPUL.NEB. INHALATION (07:03)
--- NOTE | 2023-12-21 08:03 | PCM.PN.HOSP ---
Reason for Visit Reason for Visit: Diagnoses Morbid (severe) obesity due to excess calories (12/17/23) Pure hypercholesterolemia, unspecified (12/17/23) Alkalosis (12/17/23) Other fluid overload (12/17/23) Essential (primary) hypertension (12/17/23) Heart failure, unspecified (12/17/23) Acute respiratory failure with hypoxia (12/17/23) Chronic respiratory failure with hypercapnia (12/17/23) Body mass index [BMI] 50.0-59.9, adult (12/17/23) Subjective Subjective Breathing ok. Got hypoxic when placed on RA for ABG today. decreased LE edema. Objective Data Objective Data Vital Signs: Vital Signs Temp Pulse Resp BP Pulse Ox O2 Del Method O2 Flow Rate 36.4 C L 82 16 127/85 H 94 Nasal Cannula 3 12/21/23 02:49 12/21/23 07:03 12/21/23 07:03 12/21/23 02:49 12/21/23 07:03 12/21/23 07:03 12/21/23 07:03 FiO2 30 12/20/23 02:52 Oxygen Flow Rate (L/min) 3 Oxygen Delivery Method Nasal Cannula Weight: 151.6 kg Body Mass Index (BMI) 52.4 Intake & Output: Intake and Output for Last 24 Hours 12/19/23 12/20/23 12/21/23 23:59 23:59 23:59 Intake Total 941 / 941 1305 / 1305 Output Total 2275 / 2275 1850 / 1850 1200 / 1200 Balance -1334 / -1334 -545 / -545 -1200 / -1200 Lab / Micro Data 12/21/23 07:05 12/21/23 07:05 Labs: Laboratory Results - last 24 hr 12/20/23 07:05: Sodium 141, Potassium 3.7, Chloride 99, Carbon Dioxide 41.0 H, Anion Gap 1 L, BUN 22 H, Creatinine 0.67 L, Estim Creat Clear Calc 170.47, Est GFR (MDRD) Af Amer 158, Est GFR (MDRD) Non-Af 131, BUN/Creatinine Ratio 33.0 H, Glucose 78, Calcium 9.1 Micro: Microbiology 12/17/23 20:51 Mucosa - Nasopharyngeal Coronavirus COVID-19 PCR - Final 12/17/23 20:51 Mucosa - Nasopharyngeal Respiratory Panel (PCR) - Final 12/17/23 22:00 Urine Catheter - Catheter Legionella Antigen - Final 12/17/23 22:00 Urine Catheter - Catheter Streptococcus pneumoniae Antigen (M - Final Rhythm Strip Rhythm Strip: Sinus Rhythm Rate: 70 Physical Exam Const alert and no apparent distress Resp normal respiratory effort, no retractions, no use of accessory muscles and clear to auscultation bilaterally Cardio regular rate, regular rhythm, S1 normal heart sound and S2 normal heart sound GI normal to inspection, nondistended, normoactive bowel sounds, soft to palpation, non-tender and non-distended Neuro Sensorium / Orientation: awake and alert Assessment & Plan Assessment/Plan (1) Acute hypoxic on chronic hypercapnic respiratory failure: PLAN: Plan Acute hypoxic and hypercapnic respiratory failure multifactorial: CHF, Obesity-hypventialation, Doubt pneumonia, DC abx and observe. Patient requires volume ventilation and all other alternative therapies, including bilevel, have been considered and ruled out due to the severity of the disease state, weak breathing muscles and potential life-threatening condition including CO2 retention probability of acute exacerbation, patient requires ventilation to be used during the day as needed, addition to every night usage with facemask. Metabolic encephalopathy POA, subsequently resolved 2/2 hypercapnia Acute HFpEF EF 60% On furosemide, metoprolol tartrate, empagliflozin, losartan Elevated troponin 2/2 type II, demand, ischemia from respiratory failure seen by cardiology, who has subsequently signed off. no additional work up at this time. Chronic conditions: Suspected CKD Stage II : Admission BUN/Cr 36/1.38, unclear baseline. No previous creatinine Hyperbilirubinemia, mild: suspect passive congestion. recheck. Hypertension: Continue home regimen including losartan. Hyperlipidemia: Continue home statin regimen. Morbid Obesity: Weight loss and lifestyle changes encouraged. MONIKA: Noncompliant with CPAP, BiPAP currently as noted. Morbid obesity: BMI of 52.5 kg/m?. Weight loss advised. DVT prophylaxis: Lovenox. CODE status: Full code Charges/Coding Visit Charges Inpatient E&M: 16406 Subs Hosp L2
[2023-12-21 08:14] LABS: Absolute Lymphocyte Count 1.02 X10^3/uL (0.83-4.51); Absolute Neutrophil Count 3.6 X10^3/uL (2.0-7.7); Basophil# 0.03 X10^3/uL; Basophil% 0.5 % (0-1); Eosinophil# 0.16 X10^3/uL; Eosinophils% 2.9 % (0-5); Hemoglobin 18.2 g/dL (13.0-16.5); Lymphocyte # 1.02 X10^3/ul (0.83-4.51); Lymphocyte % 18.5 % (19-41); Mean Corp Hgb Conc 28.8 g/dL (32-36); Mean Corpuscular Hgb 28.2 pg (27.0-32.0); Mean Platelet Vol. 10.2 fl (6.2-12.0); Monocyte# 0.65 X10^3/uL; Monocyte% 11.8 % (0-10); NRBC Flagged by Analyzer 0 % (0-5); Neutrophil # 3.64 X10^3/uL (2.7-7.7); Neutrophil % 66.1 % (47-70); Platelet Count 168 K/mm3 (150-450); RBC Distribution Width CV 18.7 % (11.6-14.6); RBC Distribution Width SD 64.2 fl (35.1-43.9); Red Blood Count 6.45 M/mm3 (4.6-6.2); White Blood Count 5.5 K/mm3 (4.4-11.0)
[2023-12-21 08:18] LABS: Hematocrit 63.2 % (40-54)
[2023-12-21] MEDS: Enoxaparin 40 MG/0.4 ML Syringe SC ×2 (08:28→21:51)
[2023-12-21] MEDS: AcetaZOLAMIDE 250 MG Tablet PO (08:29)
[2023-12-21] MEDS: Furosemide 40 MG/4 ML Vial IV ×2 (08:29→18:26)
[2023-12-21] MEDS: Potassium Chloride Oral Tablet 20 MEQ PO ×2 (08:29→18:26)
[2023-12-21] MEDS: Atorvastatin Calcium 20 MG Tablet 10 MG PO (08:29)
[2023-12-21] MEDS: Fluticasone 0.05% 1 SPRAY NASAL.SRY NASAL ×2 (08:29→21:49)
[2023-12-21] MEDS: Metoprolol Tartrate 25 MG Tablet 12.5 MG PO ×2 (08:30→21:51)
[2023-12-21] MEDS: Aspirin 81 MG TAB.CHEW PO (08:30)
[2023-12-21] MEDS: Losartan Potassium 100 MG Tablet PO (08:30)
[2023-12-21] MEDS: Empagliflozin 10 MG Tablet PO (08:31)
[2023-12-21 09:46] LABS: Pathologist Review Reviewed
[2023-12-21 09:54] LABS: Allen Test Positive; Base Excess 12 mmol/L (-2 to +2); Bicarbonate 37.7 mmol/L (22-26); Blood Gas Specimen Type ART; Mode Not entered; O2 Delivery Device Room Air; PO2 48 mmHG (75-100); SITE R Radial; SO2 78 % (95-99); Total Carbon Dioxide 40 mmol/L; pH 7.33 (7.35-7.45)
[2023-12-21 10:01] LABS: ALB/GLOB Ratio 0.8 RATIO (0.9-2.4); AST(SGOT) 57 U/L (15-37); Alanine Aminotransfer ALT/SGPT 36 U/L (16-61); Albumin, Serum 2.9 g/dL (3.2-5.0); Alkaline Phosphatase 72 U/L (45-117); Anion Gap 11 (5-15); BUN 18 mg/dL (7-18); BUN/Creat Ratio 22.5 RATIO (10-20); Chloride 102 mmol/L (98-107); EST Glomerular Filtration Rate 106 mL/min (>60); Est Glom Filt Rate - Afr Amer 128 mL/min (>60); Estimated Creatinine Clearance 142.54 ml/min; Globulin 3.6 g/dL (2.2-4.2); Glucose 69 mg/dL (74-106); Potassium 4.4 mmol/L (3.5-5.1); Protein, Total 6.5 g/dL (6.4-8.2); Sodium Level 144 mmol/L (136-145)
--- NOTE | 2023-12-21 11:04 | PCM.PN.REN ---
Subjective Subjective No new complaints today. edema is getting better. No urinary complaints. Objective Data Objective Data Vital Signs: Vital Signs Temp Pulse Resp BP Pulse Ox O2 Del Method O2 Flow Rate 98 F 72 18 121/83 H 94 Nasal Cannula 3 12/21/23 08:25 12/21/23 08:30 12/21/23 08:25 12/21/23 08:25 12/21/23 08:25 12/21/23 10:00 12/21/23 10:00 FiO2 30 12/20/23 02:52 Oxygen Flow Rate (L/min) 3 Oxygen Delivery Method Nasal Cannula Weight: 151.6 kg Body Mass Index (BMI) 52.4 Intake & Output: Intake and Output for Last 24 Hours 12/19/23 12/20/23 12/21/23 23:59 23:59 23:59 Intake Total 941 / 941 1305 / 1305 Output Total 2275 / 2275 1850 / 1850 1200 / 1200 Balance -1334 / -1334 -545 / -545 -1200 / -1200 Lab / Micro Data 12/21/23 07:05 12/21/23 07:05 Labs: Laboratory Results - last 24 hr 12/19/23 06:35: Diff Path Review Reviewed 12/21/23 07:05: WBC 5.5, RBC 6.45 H, Hgb 18.2 H*, Hct 63.2 H, MCV 98.0 H, MCH 28.2, MCHC 28.8 L, RDW Std Deviation 64.2 H, RDW Coeff of Annmarie 18.7 H, Plt Count 168, MPV 10.2, Immature Gran % (Auto) 0.200, Neut % (Auto) 66.1, Lymph % (Auto) 18.5 L, Toole % (Auto) 11.8 H, Eos % (Auto) 2.9, Baso % (Auto) 0.5, Absolute Neuts (auto) 3.6, Absolute Lymphs (auto) 1.02, Nucleated RBC % 0, Diff Path Review February, Sodium Cancelled 12/21/23 07:05: Sodium 144, Potassium Cancelled 12/21/23 07:05: Potassium 4.4, Chloride Cancelled 12/21/23 07:05: Chloride 102, Carbon Dioxide Cancelled 12/21/23 07:05: Carbon Dioxide 31.0, Anion Gap Cancelled 12/21/23 07:05: Anion Gap 11, BUN Cancelled 12/21/23 07:05: BUN 18, Creatinine Cancelled 12/21/23 07:05: Creatinine 0.80, Estim Creat Clear Calc Cancelled 12/21/23 07:05: Estim Creat Clear Calc 142.54, Est GFR (MDRD) Af Amer Cancelled 12/21/23 07:05: Est GFR (MDRD) Af Amer 128, Est GFR (MDRD) Non-Af Cancelled 12/21/23 07:05: Est GFR (MDRD) Non-Af 106, BUN/Creatinine Ratio Cancelled 12/21/23 07:05: BUN/Creatinine Ratio 22.5 H, Glucose Cancelled 12/21/23 07:05: Glucose 69 L, Calcium Cancelled 12/21/23 07:05: Calcium 9.0, Total Bilirubin 2.60 H, AST 57 H, ALT 36, Alkaline Phosphatase 72, Total Protein 6.5, Albumin 2.9 L, Globulin 3.6, Albumin/Globulin Ratio 0.8 L Micro: Microbiology 12/17/23 20:51 Mucosa - Nasopharyngeal Coronavirus COVID-19 PCR - Final 12/17/23 20:51 Mucosa - Nasopharyngeal Respiratory Panel (PCR) - Final 12/17/23 22:00 Urine Catheter - Catheter Legionella Antigen - Final 12/17/23 22:00 Urine Catheter - Catheter Streptococcus pneumoniae Antigen (M - Final ABG Data ABG results: ABG 12/21/23 09:48 Specimen Type ART Sample Site R Radial pH 7.33 L Bicarbonate Actual 37.7 H Total CO2 40 Base Excess 12 H O2 Saturation 78 L ABG pCO2 71.0 H* ABG pO2 48 L Nick Test Positive O2 Delivery Device Room Air Vent Mode Not entered Crit Call To/Read Back Yes Blood Gas Notified Whom WILLIAM Blood Gas Notified Time 09:51:53 Rhythm Strip Rhythm Strip: Sinus Rhythm Rate: 70 Physical Exam Narrative Alert awake oriented x 3 no obvious distress no pallor no icterus no JVD s1s2 no murmurs lungs clear abdomen soft no organomegaly ++ edema no cyanosis Assessment & Plan Assessment/Plan (1) Metabolic alkalosis: PLAN: At baseline he has chronic respiratory acidosis. No previous labs available for comparison. Last blood gas with a pH of 7.35, pCO2 75 bicarbonate: No prior blood gas available for comparison. Chronic respiratory acidosis is likely related to chronic obesity hypoventilation likely. Serum bicarbonate was more than 45. Received 2 doses of Diamox. Bicarbonate has come down to 31. We will stop Diamox. Increase Lasix to twice a day.
--- NOTE | 2023-12-21 11:10 | CASEMGMT ---
Addendum entered by Jessica Abdi 12/21/23 16:26: [facility] [id number] cost for NIV is $327.23/month (reduced payment amt) for rental and she states there is no option to do rent-to-own. TAMIKO LEMUS to room. Pt and made aware. Questions answered. They state they are able to afford this and states to use the [employer] acct that was on the Reduced payment application for payment. Ashtyn made aware. and pt inquired if pt would get approved for [facility] what they should do. TAMIKO LEMUS informed them to notify [employer] to have NIV billed through [employer]/insurance. They voice understanding. Pt and deny having any further questions/needs at this time. Discussed possible need of home O2 @ discharge and they are aware this would be an additional [id number] cost. Per Ashtyn, they may be able to use the same Reduced payment application for Home O2, if pt does need O2 @ d/c. TAMIKO LEMUS to discuss this w/[employer] if O2 is needed. Ashtyn asks for [employer] to be notified once discharge date is known. She states if discharge is anticipated to occur over the weekend, then they would prefer to make arrangements for NIV to be delivered to pt's home on Monday. Original Note: TAMIKO LEMUS NOTE: TAMIKO LEMUS spoke w/Ashtyn @ [facility] and she states they are currently working on reviewing reduced payment application to determine financials/[id number] cost for NIV. Script for NIV obtained from Dr Cook and [place] Na[place] [facility] along w/demographic information and progress note. Davon MARION RN, CM
--- NOTE | 2023-12-21 11:18 | PCM.PN.INT ---
Assessment & Plan Assessment/Plan (1) Acute hypoxic on chronic hypercapnic respiratory failure: (2) Heart failure: (3) Morbid obesity with BMI of 50.0-59.9, adult: PLAN: Plan RECOMMENDATIONS: 1. Continue current diuresis 2. Continue BiPAP with all sleep with rescue as needed 3. Room air ABG confirms obesity hypoventilation syndrome 4. Defer to hospitalist on initiation of Jardiance per cardiology recommendations 5. Outpatient complete PFT and walking oximetry IMPRESSIONS: 1. Acute metabolic encephalopathy secondary to acute on chronic combined respiratory failure with OHS Unclear inciting event. Clinical suspicion is patient has had fluid retention for several weeks. Patient does have a significantly elevated hemoglobin suggesting ongoing hypoxic compensation. Room air ABG confirms OHS. Patient would benefit from an NIV at discharge for this reason. Patient appears to have a more appropriate diuresis at this time. No change in renal function, so we will continue with diuresis. Clinical suspicion for RV dysfunction secondary to chronic hypoxia given polycythemia. 2. Suspected CKD stage II/hyperbilirubinemia/hypertension/hyperlipidemia/morbid obesity Complicates care, management, recovery and prognosis. Unclear if patient has an element of elevated liver enzymes secondary to polycythemia. Patient appears to be tolerating diuresis well, but will likely require electrolyte repletion as he is diuresing significantly. Okay to continue with baseline hypertensive medications. At this point, patient is a full code. Subjective Subjective Patient feels subjectively proved compared to yesterday. Patient is not reporting any current chest pain or abdominal pain. Patient did have several questions related to CPAP versus his current BiPAP. Also discussed with the patient about his elevated hemoglobin and probable periodic hypoxia. Objective Data Objective Data Vital Signs: Vital Signs Temp Pulse Resp BP Pulse Ox O2 Del Method O2 Flow Rate 36.6 C 72 18 121/83 H 94 Nasal Cannula 3 12/21/23 08:25 12/21/23 08:30 12/21/23 08:25 12/21/23 08:25 12/21/23 08:25 12/21/23 10:00 12/21/23 10:00 FiO2 30 12/20/23 02:52 Oxygen Flow Rate (L/min) 3 Oxygen Delivery Method Nasal Cannula Weight: 151.6 kg Body Mass Index (BMI) 52.4 Intake & Output: Intake and Output for Last 24 Hours 12/19/23 12/20/2324 23:59 23:59 23:59 Intake Total 941 / 941 1305 / 1305 Output Total 2275 / 2275 1850 / 1850 1200 / 1200 Balance -1334 / -1334 -545 / -545 -1200 / -1200 Lab / Micro Data Attestation: I reviewed the patient's lab results. 12/21/23 07:05 12/21/23 07:05 Labs: Laboratory Results - last 24 hr 12/19/23 06:35: Diff Path Review Reviewed 12/21/23 07:05: WBC 5.5, RBC 6.45 H, Hgb 18.2 H*, Hct 63.2 H, MCV 98.0 H, MCH 28.2, MCHC 28.8 L, RDW Std Deviation 64.2 H, RDW Coeff of Annmarie 18.7 H, Plt Count 168, MPV 10.2, Immature Gran % (Auto) 0.200, Neut % (Auto) 66.1, Lymph % (Auto) 18.5 L, Andrews % (Auto) 11.8 H, Eos % (Auto) 2.9, Baso % (Auto) 0.5, Absolute Neuts (auto) 3.6, Absolute Lymphs (auto) 1.02, Nucleated RBC % 0, Diff Path Review May , Sodium Cancelled 12/21/23 07:05: Sodium 144, Potassium Cancelled 12/21/23 07:05: Potassium 4.4, Chloride Cancelled 12/21/23 07:05: Chloride 102, Carbon Dioxide Cancelled 12/21/23 07:05: Carbon Dioxide 31.0, Anion Gap Cancelled 12/21/23 07:05: Anion Gap 11, BUN Cancelled 12/21/23 07:05: BUN 18, Creatinine Cancelled 12/21/23 07:05: Creatinine 0.80, Estim Creat Clear Calc Cancelled 12/21/23 07:05: Estim Creat Clear Calc 142.54, Est GFR (MDRD) Af Amer Cancelled 12/21/23 07:05: Est GFR (MDRD) Af Amer 128, Est GFR (MDRD) Non-Af Cancelled 12/21/23 07:05: Est GFR (MDRD) Non-Af 106, BUN/Creatinine Ratio Cancelled 12/21/23 07:05: BUN/Creatinine Ratio 22.5 H, Glucose Cancelled 12/21/23 07:05: Glucose 69 L, Calcium Cancelled 12/21/23 07:05: Calcium 9.0, Total Bilirubin 2.60 H, AST 57 H, ALT 36, Alkaline Phosphatase 72, Total Protein 6.5, Albumin 2.9 L, Globulin 3.6, Albumin/Globulin Ratio 0.8 L Micro: Microbiology 12/17/23 20:51 Mucosa - Nasopharyngeal Coronavirus COVID-19 PCR - Final 12/17/23 20:51 Mucosa - Nasopharyngeal Respiratory Panel (PCR) - Final 12/17/23 22:00 Urine Catheter - Catheter Legionella Antigen - Final 12/17/23 22:00 Urine Catheter - Catheter Streptococcus pneumoniae Antigen (M - Final ABG Data ABG results: ABG 12/21/23 09:48 Specimen Type ART Sample Site R Radial pH 7.33 L Bicarbonate Actual 37.7 H Total CO2 40 Base Excess 12 H O2 Saturation 78 L ABG pCO2 71.0 H* ABG pO2 48 L Nick Test Positive O2 Delivery Device Room Air Vent Mode Not entered Crit Call To/Read Back Yes Blood Gas Notified Whom WILLIAM Blood Gas Notified Time 09:51:53 Attestation: I personally reviewed and interpreted this ABG as follows: (Chronic respiratory acidosis with metabolic compensation and an age-appropriate AA gradient) Rhythm Strip Rhythm Strip: Sinus Rhythm Rate: 70 Physical Exam Const alert, oriented x3 and no apparent distress Constitutional Narrative: Only mild conversational dyspnea noted. Patient not on BiPAP during my evaluation HEENT normocephalic and head/scalp atraumatic Eyes PERRL, EOMs intact bilaterally and conjunctivae normal Neck full ROM, no lymphadenopathy, supple and no carotid bruits Chest inspection of chest normal Resp normal respiratory effort Auscultation: diminished lung sounds; Negative for rales, rhonchi or wheezes Cardio regular rate, regular rhythm, S1 normal heart sound, S2 normal heart sound, no murmurs, no rub and no gallops GI normal to inspection, nondistended, normoactive bowel sounds and soft to palpation Extremity Extremity Narrative: Improved lower extremity edema General Extremity: edema bilateral (Scrotal edema and bilateral pitting) Skin Skin Narrative: Difficult to examine secondary to ease bandages Neuro oriented x3, CN's II-XII intact bilaterally and moves all extremities Psych mental status grossly normal Charges/Coding Visit Charges Inpatient E&M: 35351 Subs Hosp L3
[2023-12-22] VITALS (8 sets, daily range): BP systolic 125–138; BP diastolic 76–82; PULSE 64–85; RESP 14–18; TEMP 36.7–36.8; O2SAT 82–93; BMI 50.8
[2023-12-22] MEDS: Budesonide Respules 0.5 MG/2 ML AMPUL.NEB. INHALATION (07:11)
--- NOTE | 2023-12-22 07:13 | PN.HOSP_ITS ---
Reason for Visit Reason for Visit: Diagnoses Morbid (severe) obesity due to excess calories (12/17/23) Pure hypercholesterolemia, unspecified (12/17/23) Alkalosis (12/17/23) Other fluid overload (12/17/23) Essential (primary) hypertension (12/17/23) Heart failure, unspecified (12/17/23) Acute respiratory failure with hypoxia (12/17/23) Chronic respiratory failure with hypercapnia (12/17/23) Body mass index [BMI] 50.0-59.9, adult (12/17/23) Subjective Subjective Breathing well. Decreased LE edema. Objective Data Objective Data Vital Signs: Vital Signs Temp Pulse Resp BP Pulse Ox O2 Del Method O2 Flow Rate 36.7 C 76 18 125/82 H 93 CPAP 2 12/22/23 03:26 12/22/23 03:26 12/22/23 03:26 12/22/23 03:26 12/22/23 05:25 12/22/23 03:29 12/21/23 22:00 FiO2 30 12/20/23 02:52 Oxygen Flow Rate (L/min) 2 Oxygen Delivery Method CPAP Weight: 147.1 kg Body Mass Index (BMI) 50.8 Intake & Output: Intake and Output for Last 24 Hours 12/20/23 12/21/23 12/22/23 23:59 23:59 23:59 Intake Total 1305 / 1305 300 / 300 150 / 150 Output Total 1850 / 1850 5500 / 5500 600 / 600 Balance -545 / -545 -5200 / -5200 -450 / -450 Lab / Micro Data 12/22/23 06:30 12/22/23 06:30 Labs: Laboratory Results - last 24 hr 12/19/23 06:35: Diff Path Review Reviewed 12/21/23 07:05: WBC 5.5, RBC 6.45 H, Hgb 18.2 H*, Hct 63.2 H, MCV 98.0 H, MCH 28.2, MCHC 28.8 L, RDW Std Deviation 64.2 H, RDW Coeff of Annmarie 18.7 H, Plt Count 168, MPV 10.2, Immature Gran % (Auto) 0.200, Neut % (Auto) 66.1, Lymph % (Auto) 18.5 L, Schley % (Auto) 11.8 H, Eos % (Auto) 2.9, Baso % (Auto) 0.5, Absolute Neuts (auto) 3.6, Absolute Lymphs (auto) 1.02, Nucleated RBC % 0, Diff Path Review May foll, Sodium Cancelled 12/21/23 07:05: Sodium 144, Potassium Cancelled 12/21/23 07:05: Potassium 4.4, Chloride Cancelled 12/21/23 07:05: Chloride 102, Carbon Dioxide Cancelled 12/21/23 07:05: Carbon Dioxide 31.0, Anion Gap Cancelled 12/21/23 07:05: Anion Gap 11, BUN Cancelled 12/21/23 07:05: BUN 18, Creatinine Cancelled 12/21/23 07:05: Creatinine 0.80, Estim Creat Clear Calc Cancelled 12/21/23 07:05: Estim Creat Clear Calc 142.54, Est GFR (MDRD) Af Amer Cancelled 12/21/23 07:05: Est GFR (MDRD) Af Amer 128, Est GFR (MDRD) Non-Af Cancelled 12/21/23 07:05: Est GFR (MDRD) Non-Af 106, BUN/Creatinine Ratio Cancelled 12/21/23 07:05: BUN/Creatinine Ratio 22.5 H, Glucose Cancelled 12/21/23 07:05: Glucose 69 L, Calcium Cancelled 12/21/23 07:05: Calcium 9.0, Total Bilirubin 2.60 H, AST 57 H, ALT 36, Alkaline Phosphatase 72, Total Protein 6.5, Albumin 2.9 L, Globulin 3.6, Albumin/Globulin Ratio 0.8 L Micro: Microbiology 12/17/23 20:51 Mucosa - Nasopharyngeal Coronavirus COVID-19 PCR - Final 12/17/23 20:51 Mucosa - Nasopharyngeal Respiratory Panel (PCR) - Final 12/17/23 22:00 Urine Catheter - Catheter Legionella Antigen - Final 12/17/23 22:00 Urine Catheter - Catheter Streptococcus pneumoniae Antigen (M - Final ABG Data ABG results: ABG 12/21/23 09:48 Specimen Type ART Sample Site R Radial pH 7.33 L Bicarbonate Actual 37.7 H Total CO2 40 Base Excess 12 H O2 Saturation 78 L ABG pCO2 71.0 H* ABG pO2 48 L Nick Test Positive O2 Delivery Device Room Air Vent Mode Not entered Crit Call To/Read Back Yes Blood Gas Notified Whom WILLIAM Blood Gas Notified Time 09:51:53 Rhythm Strip Rhythm Strip: Sinus Rhythm Rate: 70 Physical Exam Const alert and no apparent distress Constitutional Narrative: up in chair. Resp normal respiratory effort, no retractions, no use of accessory muscles and clear to auscultation bilaterally Cardio regular rate, regular rhythm, S1 normal heart sound and S2 normal heart sound GI normal to inspection, nondistended, normoactive bowel sounds, soft to palpation and non-tender Extremity Extremity Narrative: decreased LE edema. Assessment & Plan Assessment/Plan (1) Acute hypoxic on chronic hypercapnic respiratory failure: PLAN: Plan Acute on chronic hypoxic and hypercapnic respiratory failure * multifactorial: CHF, Obesity-hypventialation, * Doubt pneumonia, DC abx and observe. * Patient requires volume ventilation and all other alternative therapies, including bilevel, have been considered and ruled out due to the severity of the disease state, weak breathing muscles and potential life-threatening condition including CO2 retention probability of acute exacerbation, patient requires ventilation to be used during the day as needed, addition to every night usage with facemask. Metabolic encephalopathy * POA, subsequently resolved * 2/2 hypercapnia Acute HFpEF * EF 60% * On furosemide, metoprolol tartrate, losartan * empagliflozin while in the hospital but the cost at home will be over $500 per month. Patient is attending at Medicaid. Patient will not be discharged with that due to cost prohibitive nature of it at this time but hopefully once he gets Medicaid he will be able to afford that and be able to take that. * Follow up with cardiology Elevated troponin * 2/2 type II, demand, ischemia from respiratory failure * seen by cardiology, who has subsequently signed off. * no additional work up at this time. Erythrocytosis * likely secondary due to chronic respiratory failure * Will need follow up as outpt. If still elevated, may need referral to Hematology to evaluate for Polycythemia vera Chronic conditions: * Suspected CKD Stage II : Admission BUN/Cr 36/1.38, unclear baseline. No previous creatinine * Hyperbilirubinemia, mild: suspect passive congestion. recheck. * Hypertension: Continue home regimen including losartan. * Hyperlipidemia: Continue home statin regimen. * Morbid Obesity: Weight loss and lifestyle changes encouraged. * MONIKA: Had been on CPAP at home but will be on discharge (see above). * Morbid obesity: BMI of 52.5 kg/m?. Weight loss advised. DVT prophylaxis: Lovenox. CODE status: Full code Discharge home.
[2023-12-22 07:44] LABS: Absolute Lymphocyte Count 1.11 X10^3/uL (0.83-4.51); Absolute Neutrophil Count 3.8 X10^3/uL (2.0-7.7); Basophil# 0.06 X10^3/uL; Eosinophil# 0.21 X10^3/uL; Eosinophils% 3.6 % (0-5); Hemoglobin 19.2 g/dL (13.0-16.5); Lymphocyte # 1.11 X10^3/ul (0.83-4.51); Lymphocyte % 19.2 % (19-41); Mean Corpuscular Hgb 28.2 pg (27.0-32.0); Mean Corpuscular Volume 97.2 fL (80-94); Mean Platelet Vol. 10.2 fl (6.2-12.0); Monocyte# 0.62 X10^3/uL; Monocyte% 10.7 % (0-10); NRBC Flagged by Analyzer 0 % (0-5); Neutrophil # 3.76 X10^3/uL (2.7-7.7); Neutrophil % 65.3 % (47-70); Platelet Count 168 K/mm3 (150-450); RBC Distribution Width CV 18.6 % (11.6-14.6); RBC Distribution Width SD 62.7 fl (35.1-43.9); Red Blood Count 6.82 M/mm3 (4.6-6.2); White Blood Count 5.8 K/mm3 (4.4-11.0)
[2023-12-22 07:49] LABS: Hematocrit 66.3 % (40-54)
[2023-12-22 08:15] LABS: Anion Gap 4 (5-15); BUN 18 mg/dL (7-18); BUN/Creat Ratio 23.3 RATIO (10-20); Calcium,Total 9.6 mg/dL (8.5-10.1); Chloride 104 mmol/L (98-107); Creatinine, Serum 0.77 mg/dL (0.70-1.30); EST Glomerular Filtration Rate 110 mL/min (>60); Est Glom Filt Rate - Afr Amer 133 mL/min (>60); Glucose 76 mg/dL (74-106); Sodium Level 142 mmol/L (136-145)
--- NOTE | 2023-12-22 08:21 | PN.CC_ITS ---
Assessment & Plan Assessment/Plan (1) Acute hypoxic on chronic hypercapnic respiratory failure: (2) Heart failure: (3) Morbid obesity with BMI of 50.0-59.9, adult: PLAN: Plan RECOMMENDATIONS: 1. Continue current diuresis 2. High clinical suspicion for oxygen with ambulation on discharge 3. Room air ABG confirms obesity hypoventilation syndrome. Recommend NIV on discharge 4. Defer to hospitalist on initiation of Jardiance per cardiology recommendations 5. Outpatient complete PFT and walking oximetry 6. Consider hematology opinion for phlebotomy IMPRESSIONS: 1. Acute metabolic encephalopathy secondary to acute on chronic combined respiratory failure with OHS Unclear inciting event. Clinical suspicion is patient has had fluid retention for several weeks. Patient does have a significantly elevated hemog lobin suggesting ongoing hypoxic compensation. Room air ABG confirms OHS. Patient would benefit from an NIV at discharge for this reason. Patient appears to have a more appropriate diuresis rate at this time. No change in renal function, so we will continue with diuresis. Clinical suspicion for RV dysfunction secondary to chronic hypoxia given polycythemia. Could get hematology to give opinion on possible phlebotomy given hemoglobin above 19. High clinical suspicion for intermittent hypoxemia leading to polycythemia 2. Suspected CKD stage II/hyperbilirubinemia/hypertens ion/hyperlipidemia/morbid obesity Complicates care, management, recovery and prognosis. Unclear if patient has an element of elevated liver enzymes secondary to polycythemia. Patient a ppears to be tolerating diuresis well, but will likely require monitoring for electrolyte repletion as he is diuresing significantly. Okay to continue with baseline hypertensive medications. At this point, patient is a full code. Subjective Subjective Patient did well overnight. No significant cough reported by the patient. Patient does ambulate around the room and tolerated well, but staff reports he desaturates quickly with any ambulation. Patient has not had any cramping reported. Objective Data Objective Data Vital Signs: Vital Signs Temp Pulse Resp BP Pulse Ox O2 Del Method O2 Flow Rate 36.7 C 72 16 125/82 H 93 Nasal Cannula 2 12/22/23 03:26 12/22/23 07:12 12/22/23 07:12 12/22/23 03:26 12/22/23 07:12 12/22/23 07:12 12/22/23 07:12 FiO2 30 12/20/23 02:52 Oxygen Flow Rate (L/min) 2 Oxygen Delivery Method Nasal Cannula Weight: 147.1 kg Body Mass Index (BMI) 50.8 Intake & Output: Intake and Output for Last 24 Hours 12/20/23 12/21/23 12/22/23 23:59 23:59 23:59 Intake Total 1305 / 1305 300 / 300 150 / 150 Output Total 1850 / 1850 5500 / 5500 600 / 600 Balance -545 / -545 -5200 / -5200 -450 / -450 Lab / Micro Data Attestation: I reviewed the patient's lab results. 12/22/23 06:30 12/22/23 06:30 Labs: Laboratory Results - last 24 hr 12/19/23 06:35: Diff Path Review Reviewed 12/21/23 07:05: Diff Path Review May , Sodium Cancelled 12/21/23 07:05: Sodium 144, Potassium Cancelled 12/21/23 07:05: Potassium 4.4, Chloride Cancelled 12/21/23 07:05: Chloride 102, Carbon Dioxide Cancelled 12/21/23 07:05: Carbon Dioxide 31.0, Anion Gap Cancelled 12/21/23 07:05: Anion Gap 11, BUN Cancelled 12/21/23 07:05: BUN 18, Creatinine Cancelled 12/21/23 07:05: Creatinine 0.80, Estim Creat Clear Calc Cancelled 12/21/23 07:05: Estim Creat Clear Calc 142.54, Est GFR (MDRD) Af Amer Cancelled 12/21/23 07:05: Est GFR (MDRD) Af Amer 128, Est GFR (MDRD) Non-Af Cancelled 12/21/23 07:05: Est GFR (MDRD) Non-Af 106, BUN/Creatinine Ratio Cancelled 12/21/23 07:05: BUN/Creatinine Ratio 22.5 H, Glucose Cancelled 12/21/23 07:05: Glucose 69 L, Calcium Cancelled 12/21/23 07:05: Calcium 9.0, Total Bilirubin 2.60 H, AST 57 H, ALT 36, Alkaline Phosphatase 72, Total Protein 6.5, Albumin 2.9 L, Globulin 3.6, Albumin/Globulin Ratio 0.8 L 12/22/23 06:30: WBC 5.8, RBC 6.82 H, Hgb 19.2 H*, Hct 66.3 H, MCV 97.2 H, MCH 28.2, MCHC 29.0 L, RDW Std Deviation 62.7 H, RDW Coeff of Annmarie 18.6 H, Plt Count 168, MPV 10.2, Immature Gran % (Auto) 0.200, Neut % (Auto) 65.3, Lymph % (Auto) 19.2, [place] % (Auto) 10.7 H, Eos % (Auto) 3.6, Baso % (Auto) 1.0, Absolute Neuts (auto) 3.8, Absolute Lymphs (auto) 1.11, Nucleated RBC % 0, Sodium 142, Potassium 4.0, Chloride 104, Carbon Dioxide 34.0 H, Anion Gap 4 L, BUN 18, Creatinine 0.77, Estim Creat Clear Calc 145.40, Est GFR (MDRD) Af Amer 133, Est GFR (MDRD) Non-Af 110, BUN/Creatinine Ratio 23.3 H, Glucose 76, Calcium 9.6 Micro: Microbiology 12/17/23 20:51 Mucosa - Nasopharyngeal Coronavirus COVID-19 PCR - Final 12/17/23 20:51 Mucosa - Nasopharyngeal Respiratory Panel (PCR) - Final 12/17/23 22:00 Urine Catheter - Catheter Legionella Antigen - Final 12/17/23 22:00 Urine Catheter - Catheter Streptococcus pneumoniae Antigen (M - Final ABG Data ABG results: ABG 12/21/23 09:48 Specimen Type ART Sample Site R Radial pH 7.33 L Bicarbonate Actual 37.7 H Total CO2 40 Base Excess 12 H O2 Saturation 78 L ABG pCO2 71.0 H* ABG pO2 48 L Nick Test Positive O2 Delivery Device Room Air Vent Mode Not entered Crit Call To/Read Back Yes Blood Gas Notified Whom WILLIAM Blood Gas Notified Time 09:51:53 Rhythm Strip Rhythm Strip: Sinus Rhythm Rate: 76 Physical Exam Const alert, oriented x3 and no apparent distress Constitutional Narrative: Only mild conversational dyspnea noted. Patient not on BiPAP during my evaluation HEENT normocephalic and head/scalp atraumatic Eyes PERRL, EOMs intact bilaterally and conjunctivae normal Neck full ROM, no lymphadenopathy, supple and no carotid bruits Chest inspection of chest normal Resp normal respiratory effort Auscultation: diminished lung sounds; Negative for rales, rhonchi or wheezes Cardio regular rate, regular rhythm, S1 normal heart sound, S2 normal heart sound, no m urmurs, no rub and no gallops GI normal to inspection, nondistended, normoactive bowel sounds and soft to palpation Extremity Extremity Narrative: Improved lower extremity edema General Extremity: edema bilateral (Scrotal edema and bilateral pitting) Skin Skin Narrative: Difficult to examine secondary to JULIET bandages Neuro oriented x3, CN's II-XII intact bilaterally and moves all extremities Psych mental status grossly normal Charges/Coding Visit Charges Inpatient E&M: 71804 Subs Hosp L3
--- NOTE | 2023-12-22 09:55 | CASEMGMT ---
Addendum entered by Jessica Abdi 12/22/23 15:45: NIV has been delivered to pt's room. Per Ele @ [facility], pt's O2 cost is $47.74/month for the concentrator and 7.87/mo for portability. TAMIKO LEMUS to room. Pt and both made aware and they state this is affordable. Questions answered. They are aware to call [facility] for home o2 delivery arrangements prior to d/c'ing from [facility]. Ele aware portable O2 tank to be delivered to pt's room today. Addendum entered by Jessica Abdi 12/22/23 14:29: TAMIKO LEMUS spoke w/Ashtyn @ [facility]. Home O2 pricing is still being processed. Addendum entered by Jessica Abdi 12/22/23 12:24: Home ambulatory testing has been completed and he qualifies for O2 1 l/m @ rest and 2 l/m w/exertion. Script received and sent to [facility] via [employer]. Original Note: TAMIKO LEMUS NOTE: Per Dr Cook, plans are for pt to discharge home today. Ashtyn @ [facility] made aware. Call received from Laz @ [facility]. He has made arrangements to set up NIV @ [facility] today b/w 12 and 1PM w/pt and present. Pt to have home amb testing completed. If pt qualifies for home o2, pt will be private-pay. [facility] will have reduced payment application processed for O2 to determine pt's cost. Per Dr Garcia note, Jardiance recommended by cardiology. Cost is approx $570/mo per Jardiance website. Dr Cook made aware and states is pt is not able to afford this, it is okay for pt to not take this. Pt made aware of same. Pt is applying for [employer] and if he is able to get HEBERT coverage, then Jardiance may be covered at that time. He was made aware and will f/u on this. Davon SEGALN TAMIKO LEMUS
[2023-12-22] MEDS: Losartan Potassium 100 MG Tablet PO (09:57)
[2023-12-22] MEDS: Metoprolol Tartrate 25 MG Tablet 12.5 MG PO (09:57)
[2023-12-22] MEDS: Potassium Chloride Oral Tablet 20 MEQ PO (09:57)
[2023-12-22] MEDS: Aspirin 81 MG TAB.CHEW PO (09:57)
[2023-12-22] MEDS: Fluticasone 0.05% 1 SPRAY NASAL.SRY NASAL (09:58)
[2023-12-22] MEDS: Atorvastatin Calcium 20 MG Tablet 10 MG PO (09:59)
[2023-12-22] MEDS: Empagliflozin 10 MG Tablet PO (09:59)
[2023-12-22] MEDS: Enoxaparin 40 MG/0.4 ML Syringe SC (09:59)
[2023-12-22] MEDS: Furosemide 40 MG/4 ML Vial IV (09:59)
[2023-12-22] MEDS: 0.9% Saline Lock 10 ML Syringe IV (09:59)
--- NOTE | 2023-12-22 10:38 | DS.PCM_ITS ---
Providers Date of Admission: 12/17/23 Primary Care Physician: SHELLI BALDERAS Consultations 12/18/23 08:08 Consult: Vacation Planner / Pulmonary Medicine Routine Consulting Provider: Intensivists/Pulmonary Med Reason for Consult: ACUTE combined respiratory failure on BiPAP EMERGENT Consult: No Notified: Yes Date Notified: 12/18/23 Time Notified: 08:09 Method of Notification: Verbal 12/18/23 09:13 Consult: Cardiology Routine Consulting Provider: Martin Louis Reason for Consult: Evaluation of HF, anasarca EMERGENT Consult: No Notified: Yes Date Notified: 12/18/23 Time Notified: 09:13 Method of Notification: Verbal 12/20/23 07:18 Consult: Nephrology Routine Consulting Provider: Lluvia Garg Reason for Consult: anasarca. diurtics, metablic alkalosis EMERGENT Consult: No Notified: Yes Date Notified: 12/20/23 Time Notified: 07:18 Method of Notification: Text Reason For Visit: RESPIRATORY FAILURE, SUSPECT HF Diagnosis Discharge Diagnosis (1) Acute hypoxic on chronic hypercapnic respiratory failure: Status: Acute Code(s): J96.01 - Acute respiratory failure with hypoxia; J96.12 - Chronic respiratory failure with hypercapnia Plan Acute on chronic hypoxic and hypercapnic respiratory failure * multifactorial: CHF, Obesity-hypventialation, * Doubt pneumonia, DC abx and observe. * Patient requires volume ventilation and all other alternative therapies, including bilevel, have been considered and ruled out due to the severity of the disease state, weak breathing muscles and potential life-threatening condition including CO2 retention probability of acute exacerbation, patient requires ventilation to be used during the day as needed, addition to every night usage with facemask. * Patient is ambulatory in home and in the community and requires home oxygen with portability. Metabolic encephalopathy * POA, subsequently resolved * 2/2 hypercapnia Acute HFpEF * EF 60% * On furosemide, metoprolol tartrate, losartan * empagliflozin while in the hospital but the cost at home will be over $500 per month. Patient is attending at Medicaid. Patient will not be discharged with that due to cost prohibitive nature of it at this time but hopefully once he gets Medicaid he will be able to afford that and be able to take that. * Follow up with cardiology as outpt. Elevated troponin * 2/2 type II, demand, ischemia from respiratory failure * seen by cardiology, who has subsequently signed off. * no additional work up at this time. Erythrocytosis * likely secondary due to chronic respiratory failure * Will need follow up as outpt. If still elevated, may need referral to Hematology to evaluate for Polycythemia vera Chronic conditions: * Suspected CKD Stage II : Admission BUN/Cr 36/1.38, unclear baseline. No previous creatinine * Hyperbilirubinemia, mild: suspect passive congestion. recheck. * Hypertension: Continue home regimen including losartan. * Hyperlipidemia: Continue home statin regimen. * Morbid Obesity: Weight loss and lifestyle changes encouraged. * MONIKA: Had been on CPAP at home but will be on discharge (see above). * Morbid obesity: BMI of 52.5 kg/m?. Weight loss advised. DVT prophylaxis: Lovenox. CODE status: Full code Discharge home. Medications at Discharge Home Medications rosuvastatin 10 mg tablet (Crestor) 10 mg PO DAILY 12/17/23 furosemide 40 mg tablet 40 mg PO BID #60 tabs 12/22/23 losartan 100 mg tablet 100 mg PO DAILY #30 tabs 12/22/23 metoprolol tartrate 25 mg tablet 12.5 mg (1/2 x 25 mg) PO BID #60 tabs 12/22/23 potassium chloride 20 mEq tablet,extended release(part/cryst) 20 meq PO DAILY #30 tabs 12/22/23 Hospital Course Operations None Procedures 2-D Echocardiogram Summary of Care Provided Minutes Spent on Discharge: 40 Hospital Course: Patient presents with fatigue malaise and shortness of breath. Patient was noted to have a pulse ox in the 70s with encephalopathy. Patient was started on furosemide and placed on BiPAP. Patient had elevated troponins which was felt to be due to demand ischemia patient seen by cardiology and cleared by cardiology. He was also seen by pulmonary as well as nephrology. Patient did have some alkalosis which she did require Diamox temporarily. Patient will continue with furosemide moving forward. Patient is on oxygen 3 L/min. Patient also require noninvasive ventilation upon discharge as well. Cardiology recommended Jardiance with a heart failure. Patient did receive Jardiance while he was here in the hospital, however upon discharge the cost exceeds $500 per month and would be cost prohibitive at this point in time. Patient is going to be proceeding with getting Medicaid application to bill before that and that could be revisited at a later time. Patient also has profound erythrocytosis. This is likely secondary due to cardiopulmonary processes. This will need to be followed up as outpatient as nirmal aguilar is properly treated with noninvasive ventilation as well as diuretics that hopefully with time that that would improve. If it does not think the patient may need to refer to hematology for evaluation for polycythemia vera. Weight / BMI Weight Weight: 147.1 kg Body Mass Index (BMI) 50.8 ABG / Lab / Microbiology Data 12/22/23 06:30 12/22/23 06:30 Laboratory: Laboratory Results - last 24 hr 12/22/23 06:30: WBC 5.8, RBC 6.82 H, Hgb 19.2 H*, Hct 66.3 H, MCV 97.2 H, MCH 28.2, MCHC 29.0 L, RDW Std Deviation 62.7 H, RDW Coeff of Annmarie 18.6 H, Plt Count 168, MPV 10.2, Immature Gran % (Auto) 0.200, Neut % (Auto) 65.3, Lymph % (Auto) 19.2, [place] % (Auto) 10.7 H, Eos % (Auto) 3.6, Baso % (Auto) 1.0, Absolute Neuts (auto) 3.8, Absolute Lymphs (auto) 1.11, Nucleated RBC % 0, Diff Path Review May foll, Sodium 142, Potassium 4.0, Chloride 104, Carbon Dioxide 34.0 H, Anion Gap 4 L, BUN 18, Creatinine 0.77, Estim Creat Clear Calc 145.40, Est GFR (MDRD) Af Amer 133, Est GFR (MDRD) Non-Af 110, BUN/Creatinine Ratio 23.3 H, Glucose 76, Calcium 9.6 Microbiology: Microbiology 12/17/23 20:51 Mucosa - Nasopharyngeal Coronavirus COVID-19 PCR - Final 12/17/23 20:51 Mucosa - Nasopharyngeal Respiratory Panel (PCR) - Final 12/17/23 22:00 Urine Catheter - Catheter Legionella Antigen - Final 12/17/23 22:00 Urine Catheter - Catheter Streptococcus pneumoniae Antigen (M - Final D/C Instructions Discharge Diet: 8 Cup Fluid Restriction and 2000 mg Sodium Diet Meaningful Use Info Meaningful Use Diagnoses (Choose all that apply): CHF CHF JULIET/ARB ordered at discharge?: Yes Documented LVEF (%): 65 Discharge Plan Admission Admit Date/Time: 12/17/23 19:24 Primary Reason for Your Visit: Respiratory failure Attending Provider: Erasmo Cook Primary Care Provider: SHELLI BALDERAS Consulting Providers: Blessing Henley; Tadeo Leonard; Thomas Garcia; Juan A Lira; Ced Wilcox; Monique Blackwell; James Batres; Renea Renae; Giancarlo Lal; Oziel White; Delroy Acuña; Elmer Huynh; Dash Lopez; Martin Louis; Lluvia Garg; Chato Roy Instructions Additional Instructions / Restrictions: You had a acute respiratory failure secondary to multitude of factors but primarily heart failure exacerbation. He responded well with diuresis with Lasix (furosemide). We will continue with Lasix moving forward. Additionally you require higher pressure support ventilation. You have that provided to your home. Additionally also be on oxygen. You will need to continue to lose more fluid is very important you do weigh yourself every day. If you do notice that your weight is starting to go up such as 2 pounds in 1 day or 3 pounds in 1 week, notify your primary care doctor or return to the emergency room if you are becoming more short of breath because that can be a sign of worsening heart failure. Discharge Orders/Prescriptions Prescriptions: New potassium chloride 20 mEq Tablet,Er Particles/Crystals 20 meq PO DAILY Qty: 30 0RF losartan 100 mg Tablet 100 mg PO DAILY Qty: 30 0RF metoprolol tartrate 25 mg Tablet 12.5 mg PO BID Qty: 60 0RF furosemide 40 mg tablet 40 mg PO BID Qty: 60 0RF Continued rosuvastatin [Crestor] 10 mg tablet 10 mg PO DAILY Discontinued losartan-hydrochlorothiazide 100-25 mg tablet 1 tab PO DAILY Referrals / Follow Up: SHELLI BALDERAS [Other] - Within 2 Weeks SHELLI BALDERAS [Other] [facility] [Provider Group] - Within 1 Month [facility] [Provider Group] - Within 3 Months Disposition Disposition (needs filled in before D/C Order can be placed): Home, Self Care Charges/Coding Visit Charges Inpatient E&M: 05454 Disch Hosp >30min
--- NOTE | 2023-12-22 11:20 | PHA.DC_ITS ---
Pharmacy [facility] has performed discharge medication reconciliation and counseling for this patient. The patient's discharge medication list was reviewed for discrepancies and discrepancies were resolved. The patient was counseled on the following discharge medications and changes in medications for homegoing were reviewed. The Reason for Use, instructions for use, and potential side effects were reviewed for all new medications. The patient's questions regarding all of their medications were answered. 1. Metoprolol tartrate 12.5 mg PO BID 2. Losartan 100 mg PO daily 3. Furosemide 40 mg PO BID 4. Potassium chloride 20 mEq PO daily The patient was able to verbally demonstrate an understanding of their discharge medications. Medications at Discharge Home Medications rosuvastatin 10 mg tablet (Crestor) 10 mg PO DAILY 12/17/23 furosemide 40 mg tablet 40 mg PO BID #60 tabs 12/22/23 losartan 100 mg tablet 100 mg PO DAILY #30 tabs 12/22/23 metoprolol tartrate 25 mg tablet 12.5 mg (1/2 x 25 mg) PO BID #60 tabs 12/22/23 potassium chloride 20 mEq tablet,extended release(part/cryst) 20 meq PO DAILY #30 tabs 12/22/23
[2023-12-22 12:58] LABS: Pathologist Review Reviewed
--- NOTE | 2023-12-22 15:13 | PCM.PN.REN ---
Subjective Subjective No new complaints. Good urine output Objective Data Objective Data Vital Signs: Vital Signs Temp Pulse Resp BP Pulse Ox O2 Del Method O2 Flow Rate 98.0 F 80 18 138/80 H 82 Nasal Cannula 0 12/22/23 09:30 12/22/23 09:57 12/22/23 09:30 12/22/23 09:57 12/22/23 11:15 12/22/23 09:30 12/22/23 11:15 FiO2 30 12/20/23 02:52 Oxygen Flow Rate (L/min) [ 2 AMBULATING with Oxygen #2] Oxygen Flow Rate (L/min) [ 1 AMBULATING with Oxygen #1] Oxygen Flow Rate (L/min) [At 1 REST with Oxygen] Oxygen Flow Rate (L/min) [At 0 REST on Room Air] Oxygen Flow Rate (L/min) 2 Oxygen Delivery Method Nasal Cannula Weight: 147.1 kg Body Mass Index (BMI) 50.8 Intake & Output: Intake and Output for Last 24 Hours 12/20/23 12/21/23 12/22/23 23:59 23:59 23:59 Intake Total 1305 / 1305 300 / 300 300 / 300 Output Total 1850 / 1850 5500 / 5500 1000 / 1000 Balance -545 / -545 -5200 / -5200 -700 / -700 Lab / Micro Data 12/22/23 06:30 12/22/23 06:30 Labs: Laboratory Results - last 24 hr 12/20/23 07:05: Diff Path Review Reviewed 12/22/23 06:30: WBC 5.8, RBC 6.82 H, Hgb 19.2 H*, Hct 66.3 H, MCV 97.2 H, MCH 28.2, MCHC 29.0 L, RDW Std Deviation 62.7 H, RDW Coeff of Annmarie 18.6 H, Plt Count 168, MPV 10.2, Immature Gran % (Auto) 0.200, Neut % (Auto) 65.3, Lymph % (Auto) 19.2, [place] % (Auto) 10.7 H, Eos % (Auto) 3.6, Baso % (Auto) 1.0, Absolute Neuts (auto) 3.8, Absolute Lymphs (auto) 1.11, Nucleated RBC % 0, Diff Path Review May , Sodium 142, Potassium 4.0, Chloride 104, Carbon Dioxide 34.0 H, Anion Gap 4 L, BUN 18, Creatinine 0.77, Estim Creat Clear Calc 145.40, Est GFR (MDRD) Af Amer 133, Est GFR (MDRD) Non-Af 110, BUN/Creatinine Ratio 23.3 H, Glucose 76, Calcium 9.6 Micro: Microbiology 12/17/23 20:51 Mucosa - Nasopharyngeal Coronavirus COVID-19 PCR - Final 12/17/23 20:51 Mucosa - Nasopharyngeal Respiratory Panel (PCR) - Final 12/17/23 22:00 Urine Catheter - Catheter Legionella Antigen - Final 12/17/23 22:00 Urine Catheter - Catheter Streptococcus pneumoniae Antigen (M - Final Rhythm Strip Rhythm Strip: Sinus Rhythm Rate: 76 Physical Exam Narrative Alert awake oriented x 3 no obvious distress no pallor no icterus no JVD s1s2 no murmurs lungs clear abdomen soft no organomegaly ++ edema no cyanosis Assessment & Plan Assessment/Plan (1) Metabolic alkalosis: PLAN: At baseline he has chronic respiratory acidosis. No previous labs available for comparison. Last blood gas with a pH of 7.35, pCO2 75 bicarbonate: No prior blood gas available for comparison. Chronic respiratory acidosis is likely related to chronic obesity hypoventilation likely. Serum bicarbonate was more than 45. Received 2 doses of Diamox. Bicarbonate has come down to 31. Discharge home today.
[2023-12-22 15:17] LABS: Pathologist Review Reviewed
--- NOTE | 2023-12-22 15:34 | CHAPLAIN ---
Type of Pastoral Visit _x__ Initial Visit ___ Follow-up Visit ___ On-call Visit ___ General Patient Visit ___ Spiritual Assessment ___ Family Conference ___ Bereavement ___ Rapid Response ___ Code Blue ___ Other (describe below) Pastoral Care Referral From _x__ Patient ___ Family ___ Nurse ___ Physician ___ Marine Diesel Mechanic ___ Regulatory Affairs Director ___ Other (describe below) Sacrament/Intervention _x__ Active listening ___ Anointing ___ Pentecostal ___ Bereavement ___ Communion ___ Jenn exploration ___ _x__ Life review _x__ Prayer ___ Reconciliation ___ Sacrament of Sick ___ Supportive presence ___ Wedding ___ Other (describe below) Pastoral Comments patient and spouse are in the room and they welcome the visit and time of presence; pt explains his health need and that results are good so far from treatment; pt admits to concerns about affordability as both have unpredictable employment; pt also serves in a alevism capacity and is willing for prayer; pt shares some of his life interests; no other needs were spoken or revealed in the visit
[2023-12-22 16:09] LABS: Pathologist Review Reviewed
== END 2023-12-22 18:20 | disposition home or self-care (01) | DRG 291 ==
LOC: ED 18:59 → PCU 19:39
PROVIDERS: Internal Medicine; Internal Medicine Critical Care Medicine; Physician Assistant; Admitting Provider Family Medicine; Emergency Provider Emergency Medicine
DX: I13.0 Hypertensive heart and chronic kidney disease with heart failure and stage 1 through stage 4 chronic kidney disease, or unspecified chronic kidney disease (principal); J96.21 Acute and chronic respiratory failure with hypoxia; G93.41 Metabolic encephalopathy; J18.9 Pneumonia, unspecified organism; I50.33 Acute on chronic diastolic (congestive) heart failure; J96.22 Acute and chronic respiratory failure with hypercapnia; E66.2 Morbid (severe) obesity with alveolar hypoventilation; E87.3 Alkalosis; Z68.43 Body mass index [BMI] 50.0-59.9, adult; I24.89 Other forms of acute ischemic heart disease; N18.2 Chronic kidney disease, stage 2 (mild); E87.5 Hyperkalemia; E78.00 Pure hypercholesterolemia, unspecified; E80.6 Other disorders of bilirubin metabolism; D75.1 Secondary polycythemia; E87.79 Other fluid overload; Z79.899 Other long term (current) drug therapy
CPT/HCPCS: 36415; 36600; 71045; 71046; 71275; 80048; 80053; 80061; 80076; 82803; 83735; 83880; 84443; 84484; 85025; 85610; 85730; 87449; 87633; 87635; 93005; 93306; 94002; 94003; 94640; 94668; 94762; 97802; 99285; Q9957; Q9967; A4216; J1940

== ENCOUNTER → 2024-01-25 | Outpatient (CLI) | payer SELFPAY ==
[2024-01-25 12:00] LABS: Anion Gap 5 (5-15); BUN 14 mg/dL (7-18); BUN/Creat Ratio 22.3 RATIO (10-20); Calcium,Total 9.7 mg/dL (8.5-10.1); Chloride 101 mmol/L (98-107); Creatinine, Serum 0.63 mg/dL (0.70-1.30); EST Glomerular Filtration Rate 140 mL/min (>60); Est Glom Filt Rate - Afr Amer 170 mL/min (>60); Glucose 97 mg/dL (74-106); Potassium 3.8 mmol/L (3.5-5.1); Sodium Level 139 mmol/L (136-145)
== END | disposition home or self-care (01) ==
PROVIDERS: Referring Provider Physician Assistant Medical; Visit Provider Physician Assistant Medical
DX: I50.30 Unspecified diastolic (congestive) heart failure (principal); I51.7 Cardiomegaly
CPT/HCPCS: 36415; 80048

== ENCOUNTER → 2024-03-26 | Outpatient (CLI) | payer SELFPAY ==
--- NOTE | 2024-03-26 13:24 | ECHOCS_ITS ---
Reason For Study: Cardiomegaly Procedure This was a 2D Doppler, Color Flow transthoracic echocardiogram. The study was technically difficult. Exam performed in department. Left Ventricle Normal LV size. Mild concentric left ventricular hypertrophy. The left ventricular ejection fraction is 55 %. Septal bounce. Stage 1 diastolic dysfunction. No regional wall motion abnormalities noted. Right Ventricle Normal RV size. Normal systolic function. Atria Normal left atrium. Normal right atrium. Mitral Valve Normal mitral valve. Tricuspid Valve Normal tricuspid valve. Aortic Valve Trisinus/trileaflet aortic valve. Pulmonic Valve The pulmonic valve is not well visualized. Great Vessels Normal aortic root. The pulmonary artery is normal size. Normal inferior vena cava. Pericardium/Pleural No pericardial effusion. Medication 22 gauge I.V. with prn adaptor inserted into right arm. Diluted definity 2ml given slow IV push to enhance endocardial definition. MMode/2D Measurements & Calculations LVIDd: 4.7 cm IVSd: 1.3 cm LVOT diam: 2.1 cm LVIDs: 3.3 cm LVPWd: 1.2 cm RVDd: 3.7 cm FS: 30.2 % LVOT area: 3.6 cm2 LAV(MOD-bp): 54.1 ml LVAd ap4: 39.1 cm2 SV(MOD-sp4): 70.2 ml LAV(MOD-bp) Indexed: 21.9 ml/m2 LVLd ap4: 8.6 cm LAV(MOD-sp2): 54.0 ml EDV(MOD-sp4): 146.2 ml LAV(MOD-sp4): 55.8 ml EDV(sp4-el): 150.2 ml LVAs ap4: 26.4 cm2 LVLs ap4: 7.7 cm ESV(MOD-sp4): 76.0 ml ESV(sp4-el): 76.9 ml EF(MOD-sp4): 48.0 % EF(sp4-el): 48.8 % SV(sp4-el): 73.3 ml LA A4 area: 20.0 cm2 LA dimension(2D): 3.4 cm RA A4 area: 18.5 cm2 TAPSE: 3.0 cm Time Measurements MV dec time: 0.24 sec Doppler Measurements & Calculations MV E max omer: 91.8 cm/sec Lat Peak E' Omer: 7.3 cm/sec Med Peak E' Omer: 7.2 cm/sec MV A max omer: 107.7 cm/sec E/E' lat: 12.5 E/E' med: 12.7 MV E/A: 0.85 MV dec slope: 385.1 cm/sec2 Ao V2 max: 146.5 cm/sec LV V1 max: 113.4 cm/sec Ao max P.6 mmHg LV V1 max P.1 mmHg BRIELLE(V,D): 2.8 cm2 PA V2 max: 87.6 cm/sec PA max PG (full): 1.7 mmHg ECHO/Echo Complete W/ Contrast Interpretation Summary Normal LV size. The left ventricular ejection fraction is 55 %. Mild concentric left ventricular hypertrophy. Stage 1 diastolic dysfunction. Septal bounce. Ordering Physician: Naila Sommers Referring Physician: Naila Sommers Performed By: Berenice Brown RDCS and Student
== END | disposition home or self-care (01) ==
PROVIDERS: Referring Provider Physician Assistant Medical; Visit Provider Physician Assistant Medical
DX: I51.7 Cardiomegaly (principal)
CPT/HCPCS: 93306; Q9957; A4216; C8929

== ENCOUNTER → 2024-06-12 | Outpatient (CLI) | payer SELFPAY | END | disposition home or self-care (01) | PROVIDERS: PCP Family Medicine; Referring Provider Nurse Practitioner Acute Care; Visit Provider Nurse Practitioner Acute Care | DX: R06.00 Dyspnea, unspecified (principal) | CPT/HCPCS: 94060; 94726; 94729 ==

== ENCOUNTER → 2024-06-19 | Outpatient (CLI) | payer SELFPAY ==
[2024-06-19 12:44] VITALS: PULSE 101; PULSE 102; PULSE 74; PULSE 76; PULSE 88; PULSE 90; PULSE 92; PULSE 99; O2SAT 84; O2SAT 87; O2SAT 91; O2SAT 92; O2SAT 93; O2SAT 95
--- NOTE | 2024-06-19 12:46 | CPS ---
Patient wears 2 lpm at home PRN and with ambulation. Patient was sitting on room air for 10+ minutes before testing and also brought his own tank in which he uses 2 lpm pulse dose. SpO2 92% on room air, sitting, before testing. At the 2nd minute anca, SpO2 dropped to 84%. Allowed patient to rest and started on 2 lpm O2 pulse dose, SpO2 recovered to 94%. At the 4 minute anca, SpO2 87%. Rested again and increased O2 to 3 lpm pulse dose, SpO2 recovered quickly to 95%.
--- NOTE | 2024-06-21 09:44 | PCM.PSN.6M ---
PSN 6 Minute Walk Test 6 Minute Walk Test 6 Minute Walk Test: 6 Minute Walk Test PSN:6-Minute Walk Test Start: 06/19/24 12:44 Freq: Status: Active Protocol: [id number] Document 06/19/24 12:44 ZEESHAN (Rec: 06/19/24 12:51 ZEESHAN [id number]) 6 Minute Walk Test Date Performed 06/19/24 Time Performed 12:30 Height 5 ft 7 in Weight: 335 lb Weight in Pounds 335.[address]: Stefani Sharma [employer]PER[employer] Assistive device used: None Pre-test Oxygen Delivery Method Room Air Pulse Ox (%) 92 Pulse Rate (60-100 beats/min) 74 Dyspnea Amol Scale (0-10) 0 Exertion Amol Scale (6-20) 6 1st minute Oxygen Delivery Method Room Air Pulse Ox (%) 91 Pulse Rate (60-100 beats/min) 101 H 2nd minute Oxygen Delivery Method Room Air Pulse Ox (%) 84 Pulse Rate (60-100 beats/min) 102 H 3rd minute Oxygen Flow Rate (L/min) (L/min) 2 Oxygen Delivery Method Nasal Cannula Pulse Ox (%) 91 Pulse Rate (60-100 beats/min) 88 4th minute Oxygen Flow Rate (L/min) (L/min) 2 Oxygen Delivery Method Nasal Cannula Pulse Ox (%) 87 Pulse Rate (60-100 beats/min) 90 5th minute Oxygen Flow Rate (L/min) (L/min) 3 Oxygen Delivery Method Nasal Cannula Pulse Ox (%) 93 Pulse Rate (60-100 beats/min) 92 6th minute Oxygen Flow Rate (L/min) (L/min) 3 Oxygen Delivery Method Nasal Cannula Pulse Ox (%) 91 Pulse Rate (60-100 beats/min) 99 Dyspnea Amol Scale (0-10) 3 Exertion Amol Scale (6-20) 12 Post-test Oxygen Flow Rate (L/min) (L/min) 3 Oxygen Delivery Method Nasal Cannula Pulse Ox (%) 95 Pulse Rate (60-100 beats/min) 76 Full Laps Walked 13 Partial Lap, Number of Tiles Walked 16 Total Distance Walked (ft) 783 06/19/24 12:46 Cardiopulmonary Services by Sarah Molina Patient wears 2 lpm at home PRN and with ambulation. Patient was sitting on room air for 10+ minutes before testing and also brought his own tank in which he uses 2 lpm pulse dose. SpO2 92% on room air, sitting, before testing. At the 2nd minute anca, SpO2 dropped to 84%. Allowed patient to rest and started on 2 lpm O2 pulse dose, SpO2 recovered to 94%. At the 4 minute anca, SpO2 87%. Rested again and increased O2 to 3 lpm pulse dose, SpO2 recovered quickly to 95%. Initialized on 06/19/24 12:46 - END OF NOTE Interpretation Interpretation: The patient ambulated 783 feet over the course of 6 minutes beginning on room air without assistive devices. Pretesting oxygen saturation was noted to be 92% on room air. With ambulation, the patient desaturated on several occasions requiring 3 L/min of pulse dose supplemental oxygen to maintain appropriate saturations. Recommendations Recommendations: 3 L/min of pulse dose supplemental oxygen should be utilized with exertion.
== END | disposition home or self-care (01) ==
PROVIDERS: PCP Family Medicine; Referring Provider Nurse Practitioner Acute Care; Visit Provider Nurse Practitioner Acute Care
DX: R06.00 Dyspnea, unspecified (principal)
CPT/HCPCS: 94618